=== PATIENT | male | born 1945 | race Caucasian/White ===

== ENCOUNTER → 2016-12-11 | Outpatient (CLI) | payer OTHER ==
[~2016-12-11] MED LIST: ASPEC325 PO; CALCTAB5 PO; CYAN10005 PO; FLUO20CA35 PO; FURO20TA PO; GLC850; GLUCTAB18 PO; INSDGI SQ; METO50TA16 PO; NVLGI SQ; RBTDAC5 PO; SIMV40TA2 PO; VALS320T2 PO
== END | disposition home or self-care (01) ==
LOC: C.MAMM 07:48
PROVIDERS: ATTEND Nurse Practitioner Adult Health
DX: M85.851 Other specified disorders of bone density and structure, right thigh (principal); M85.852 Other specified disorders of bone density and structure, left thigh

== ENCOUNTER → 2017-01-16 | Outpatient (CLI) | payer OTHER ==
[2017-01-16 12:45] LABS: ALKALINE PHOSPHATASE 66 U/L (45-117); ALT/SGPT 34 U/L (12-78); AST/SGOT 20 U/L (15-37); BLOOD UREA NITROGEN 23 mg/dl (7-18); BUN/CREATININE RATIO 18.9 (10-20); CALCIUM 9.4 mg/dl (8.5-10.1); CARBON DIOXIDE 27 mmol/L (21-32); CHLORIDE 100 mmol/L (98-107); GLUCOSE 128 mg/dl (70-99); HDL CHOLESTEROL 42 mg/dl; POTASSIUM 4.4 mmol/L (3.5-5.1); SODIUM 136 mmol/L (136-145)
[2017-01-16 12:49] LABS: ALB/GLOB RATIO 0.8 (0.9-2); CHOLESTEROL 103 mg/dl (0-200); CHOLESTEROL/HDL RATIO 2.5; LDL CHOLESTEROL CALCULATED 27 mg/dl; TRIGLYCERIDES 168 mg/dl (0-150); VERY LOW DENSITY LIPOPROT CALC 34 mg/dl
[2017-01-16 13:14] LABS: ESTIMATED AVERAGE GLUCOSE 206 mg/dl; HA1C FLAG Normal (Normal)
== END | disposition home or self-care (01) ==
LOC: C.LABPVFM 07:47
PROVIDERS: ATTEND Family Medicine
DX: I10 Essential (primary) hypertension (principal); E11.8 Type 2 diabetes mellitus with unspecified complications; E78.5 Hyperlipidemia, unspecified

== ENCOUNTER → 2017-04-19 | Outpatient (CLI) | payer OTHER ==
[2017-04-19 12:56] LABS: HEMATOCRIT 39.5 % (42-52); MEAN CELL VOLUME 93.6 fL (80-100); MEAN CORPUSCULAR HGB CONC 33.2 g/dl (32-36); MEAN PLATELET VOLUME 8.8 fL (7.4-10.4); PLATELET COUNT 350 K/uL (130-400); RED BLOOD COUNT 4.22 M/uL (4.7-6.1)
[2017-04-19 13:07] LABS: URINE APPEARANCE CLEAR (CLEAR); URINE BILIRUBIN NEG (NEG); URINE COLOR YELLOW; URINE NITRITE NEG (NEG); UROBILINOGEN NEG (NEG)
[2017-04-19 13:10] LABS: MANUAL MICROSCOPIC REQUIRED? NO; REVIEW REQ? NO
[2017-04-19 13:17] LABS: ESTIMATED AVERAGE GLUCOSE 192 mg/dl; HA1C FLAG Normal (Normal)
[2017-04-19 13:29] LABS: BLOOD UREA NITROGEN 29 mg/dl (7-18); BUN/CREATININE RATIO 23.8 (10-20); CALCIUM 9.7 mg/dl (8.5-10.1); CARBON DIOXIDE 27 mmol/L (21-32); CHLORIDE 99 mmol/L (98-107); GLUCOSE 182 mg/dl (70-99); PHOSPHORUS 3.6 mg/dl (2.5-4.9); POTASSIUM 4.6 mmol/L (3.5-5.1); SODIUM 136 mmol/L (136-145)
[2017-04-19 14:16] LABS: URINE PROTIEN/CREAT RATIO 0.2 (0-0.2); URINE TOTAL PROTEIN 11.9 mg/dl (0-11.9)
[2017-04-22 15:16] LABS: ALBUMIN 3.9 G/DL (3.8-4.8); GAMMA GLOBULIN 1.2 G/DL (0.8-1.7); TOTAL PROTEIN 7.2 G/DL (6.2-8.3)
== END | disposition home or self-care (01) ==
LOC: C.LABPVFM 08:49
PROVIDERS: ATTEND Internal Medicine Nephrology
DX: E21.3 Hyperparathyroidism, unspecified (principal); R80.9 Proteinuria, unspecified; N18.2 Chronic kidney disease, stage 2 (mild); I12.9 Hypertensive chronic kidney disease with stage 1 through stage 4 chronic kidney disease, or unspecified chronic kidney disease; E11.29 Type 2 diabetes mellitus with other diabetic kidney complication

== ENCOUNTER → 2017-07-18 | Outpatient (CLI) | payer OTHER ==
[2017-07-18 12:53] LABS: ESTIMATED AVERAGE GLUCOSE 214 mg/dl; HA1C FLAG Normal (Normal)
[2017-07-18 13:12] LABS: ALT/SGPT 34 U/L (12-78); AST/SGOT 20 U/L (15-37); BLOOD UREA NITROGEN 33 mg/dl (7-18); BUN/CREATININE RATIO 27.7 (10-20); CALCIUM 9.5 mg/dl (8.5-10.1); CARBON DIOXIDE 29 mmol/L (21-32); CHLORIDE 98 mmol/L (98-107); CHOLESTEROL 110 mg/dl (0-200); GLUCOSE 254 mg/dl (70-99); POTASSIUM 4.6 mmol/L (3.5-5.1); SODIUM 133 mmol/L (136-145); TRIGLYCERIDES 174 mg/dl (0-150); VERY LOW DENSITY LIPOPROT CALC 35 mg/dl
[2017-07-18 13:14] LABS: ALB/GLOB RATIO 1.1 (0.9-2); ALKALINE PHOSPHATASE 88 U/L (45-117); CHOLESTEROL/HDL RATIO 2.8; HDL CHOLESTEROL 40 mg/dl; LDL CHOLESTEROL CALCULATED 35 mg/dl
== END | disposition home or self-care (01) ==
LOC: C.LABPVFM 07:54
PROVIDERS: ATTEND Family Medicine
DX: E78.5 Hyperlipidemia, unspecified (principal); E66.9 Obesity, unspecified; E11.29 Type 2 diabetes mellitus with other diabetic kidney complication; R77.1 Abnormality of globulin

== ENCOUNTER → 2017-07-23 | Outpatient (CLI) | payer OTHER | END | disposition home or self-care (01) | LOC: C.LABPVFM 10:16 | PROVIDERS: ATTEND Family Medicine | DX: R30.0 Dysuria (principal) ==

== ENCOUNTER → 2017-08-21 | Outpatient (CLI) | payer OTHER | END | disposition home or self-care (01) | LOC: C.LABPVFM 10:25 | PROVIDERS: ATTEND Family Medicine | DX: R30.0 Dysuria (principal) ==

== ENCOUNTER → 2017-10-30 | Outpatient (CLI) | payer OTHER ==
[2017-10-30 12:32] LABS: HEMATOCRIT 42.7 % (42-52); HEMOGLOBIN 14.1 g/dL (14.0-18.0); MEAN CELL VOLUME 93.2 fL (80-100); MEAN CORPUSCULAR HEMOGLOBIN 30.8 pg (25-34); MEAN PLATELET VOLUME 9.1 fL (7.4-10.4); PLATELET COUNT 285 K/uL (130-400); RED CELL DISTRIBUTION WIDTH CV 13.1 % (11.5-14.5); RED CELL DISTRIBUTION WIDTH SD 44.5 fL (36.4-46.3); WHITE BLOOD COUNT 7.39 K/uL (4.8-10.8)
[2017-10-30 13:09] LABS: HEMOGLOBIN A1C 8.8 % (4.5-5.6)
[2017-10-30 13:30] LABS: BLOOD UREA NITROGEN 33 mg/dl (7-18); CALCIUM 9.4 mg/dl (8.5-10.1); CARBON DIOXIDE 28 mmol/L (21-32); GLUCOSE 306 mg/dl (70-99); PHOSPHORUS 3.4 mg/dl (2.5-4.9); POTASSIUM 4.4 mmol/L (3.5-5.1); SODIUM 130 mmol/L (136-145)
== END | disposition home or self-care (01) ==
LOC: C.LABPVFM 07:51
PROVIDERS: ATTEND Internal Medicine Nephrology
DX: E11.29 Type 2 diabetes mellitus with other diabetic kidney complication (principal); I12.9 Hypertensive chronic kidney disease with stage 1 through stage 4 chronic kidney disease, or unspecified chronic kidney disease; E21.3 Hyperparathyroidism, unspecified; R80.9 Proteinuria, unspecified; N18.2 Chronic kidney disease, stage 2 (mild)

== ENCOUNTER 2021-09-26 09:46 | Inpatient (IN) ==
--- NOTE | 2021-09-26 11:59 | XRay Report ---
SINGLE VIEW CHEST CLINICAL HISTORY: Dyspnea. FINDINGS: An AP, portable, upright chest radiograph is compared to study dated 06/12/2006. The patient is status post midline sternotomy. The heart is enlarged noting atherosclerotic calcification of the thoracic aorta. There is prominence of the pulmonary vasculature. There are multifocal airspace opac ities, most confluent at the left lung. There is elevation of the left hemidiaphragm with a layering left pleural effusion. No pneumothorax is seen. The skeletal structures are osteopenic. The bony thor ax is grossly intact. IMPRESSION: 1. Cardiomegaly with evidence of congestive failure. 2. There are airspace opacities throughout both lungs, asymmetrically greater/confluent on the left. Differential considerations include pulmonary edema and/or multifocal pneumonia. Clinical correlation will be essential. 3. Layering left pleural effusion. ACT 112: Negative or not required by law. Electronically signed by: Rommel Dial M.D. 09/26/2021 11:58 AM
[2021-09-26 12:06] LABS: Eosinophils # (auto) 0.03 K/uL (0-0.5); Eosinophils % (auto) 0.2 %; Hematocrit (blood only) 39.5 % (42-52); Hemoglobin 12.6 g/dL (14.0-18.0); Immature Granulocytes # (auto) 0.07 K/uL (0.00-0.02); Immature Granulocytes % (auto) 0.5 %; Lymphocytes # (auto) 0.72 K/uL (1.2-3.4); Lymphocytes % (auto) 5.3 %; Mean Corpuscular Hemoglobin 28.6 pg (25-34); Mean Corpuscular Hgb Conc 31.9 g/dL (32-36); Mean Corpuscular Volume 89.8 fL (80-100); Monocytes # (auto) 1.67 K/uL (0.11-0.59); Monocytes % (auto) 12.4 %; Neutrophils # (auto) 10.99 K/uL (1.4-6.5); Neutrophils % (auto) 81.6 %; Platelet Count 524 K/uL (130-400); RDW Coefficient of Variation 14.7 % (11.5-14.5); RDW Standard Deviation 48.7 fL (36.4-46.3); White Blood Count 13.48 K/uL (4.8-10.8)
[2021-09-26 12:21] LABS: INR 1.1 (0.9-1.1); Partial Thromboplastin Ratio 1.1; Partial Thromboplastin Time 29.6 Seconds (21.0-31.0); Prothrombin Time 11.2 Seconds (9.0-12.0)
[2021-09-26] MEDS ORDERED: ALBUT/IPRATROP 3MG/0.5MG NEB 3 ML VIAL NEB STA (12:38)
[2021-09-26] MEDS ORDERED: cefTRIAXone SODIUM 2,000 MG/70 ML BAG IV STA (12:38)
[2021-09-26] MEDS ORDERED: DOXYCYCLINE HYCLATE 100 MG in DEXTROSE 5% 100 ML IV STA (12:38)
[2021-09-26] MEDS ORDERED: methylPREDNISolone 125 MG/2 ML VIAL IV STA (12:38)
[2021-09-26 12:42] LABS: Alanine Aminotransferase 90 U/L (12-78); Albumin Level 2.4 gm/dl (3.4-5.0); Aspartate Aminotransferase 79 U/L (15-37); Blood Urea Nitrogen 29 mg/dl (7-18); Calcium 9.3 mg/dl (8.5-10.1); Carbon Dioxide 26 mmol/L (21-32); Chloride 100 mmol/L (98-107); Creatinine Clr Calc Pharmacy 65.1 ml/min; Est GFR (African American) 71.3 ml/min; Est GFR (Non-African American) 61.5 ml/min; Glucose 130 mg/dl (70-99); Magnesium 2.3 mg/dl (1.8-2.4); Potassium 4.2 mmol/L (3.5-5.1); Sodium 136 mmol/L (136-145)
[2021-09-26 12:47] LABS: Albumin Globulin Ratio 0.5 (0.9-2); Alkaline Phosphatase 85 U/L (45-117); Bilirubin,Total 0.3 mg/dl (0.2-1); Globulin 4.8 gm/dl (2.5-4.0); Total Protein 7.2 gm/dl (6.4-8.2); Troponin I < 0.015 ng/ml (0-0.045)
--- NOTE | 2021-09-26 12:50 | Emergency Department Note ---
Impression & Plan Pneumonia, Hypoxia, SOB (shortness of breath) ED Provider Note INFORMANT: Patient ED PROVIDER(S): Maldonado Hinds MD CHIEF COMPLAINT: Shortness of breath PLAN: Disposition: Admitted Condition: Good Outpatient prescription management: none Referral: None MEDICAL DECISION MAKING: Patient presented because of shortness of breath. He was tested for Covid and this was negative. He did have an elevated white blood cell count. Chest x-ray was concerning for pneumonia. Infiltrate was fairly dense on the left side. BNP and LFTs were elevated. Remainder his labs were unremarkable. Patient was given Rocephin and doxycycline. [facility]ation [facility] with the [facility], Dr. Garza. Patient was evaluated in the ER and admitted for further management. Triage Nursing notes reviewed and agree them. Vital Signs: reviewed and remarkable for hypoxia Differential diagnosis: Reactive airway disease, pneumonia, pneumothorax, COPD, CHF, infections, cardiac ischemia, pulmonary embolism, musculoskeletal, gastrointestinal, as well as other pathologies. Diagnostics interpreted by me: ECG: Twelve-lead ECG reveals atrial fibrillation at [address] a bnormality. When compared to 02/20/2016 T wave inversions have resolved and A. fib is new. Cardiac Monitoring: Cardiac monitoring ordered by me: The patient was placed on continuous cardiac monitoring and observed. It revealed atrial fibrillation at 95 beats per minute without ectopy. Imaging studies: Chest x-ray concerning for cardiomegaly, pulmonary edema, and dense left-sided pulmonary infiltrate. HPI: The patient is a 75year old male who presents to the Emergency Room with complaints of shortness of breath. This started a few days ago and is worsening. The patient also notes the following associated symptoms, mild cough, leg swelling. 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 The patient has taken no medication for relieving factors. Current pain is rated as 0/10. On presentation the patient was found to have a pulse oximetry of 83%. Pt denies LOC, headache, fevers, chills, diaphoresis, visual changes, neck pain, chest pain, nausea, vomiting, abdominal pain, back pain, melena, hematochezia, urinary symptoms, numbness, weakness, lymphadenopathy, rash, or other complaints. ROS: See above HPI for pertinent positives & negatives. A total of 10 systems reviewed and were otherwise negative. PAST MEDICAL HISTORY:See Below , CAD PAST SURGICAL HISTORY:See Below, FAMILY HISTORY:See Below SOCIAL HISTORY:See Below, HOME MEDICATIONS:See Below ALLERGIES:See Below VITALS:See Below PHYSICAL EXAMINATION: GENERAL: Awake, alert, dyspneic-appearing, in no distress HENT: Normocephalic, atraumatic. Oropharynx unremarkable. EYES: Normal conjunctiva. Sclera non-icteric. NECK: Inspection normal. Non-tender. Supple. No nuchal rigidity. FROM. No masses. RESPIRATORY: Scattered wheezes, worse on the right. Scattered rales. S. Mildly increased. CARDIAC: Normal rate. Irregular rhythm. No murmurs. No rubs. Extremities warm and well perfused. Pulses equal. No JVD. GI: Soft, non-distended. No tenderness to palpation. No rebound or guarding. No masses. RECTAL: Deferred. MUSCULOSKELETAL: Atraumatic. Chest examination reveals no tenderness. The back is symmetrical on inspection without obvious abnormality. There is no CVA tenderness to palpation. No joint edema. LOWER EXTREMITIES: Calves are equal size bilaterally and non-tender. 1-2+ edema. Chronic venous discoloration. NEURO: Normal sensorium. No sensory or motor deficits noted. SKIN: No rash or jaundice noted. Maldonado Hinds MD Past Med/Surg History Medical History Anxiety CAD (coronary artery disease) Chronic kidney disease, stage II (mild) Diabetic nephropathy DM (diabetes mellitus), type 2 Hypertension Hyponatremia Prostate CA Treated with surgery and then radiation in 2001 Surgical History History of appendectomy History of cardiac cath 1996 @ [facility] [place] with 1 stent placed History of colonoscopy History of heart artery stent 1996--1 stent History of lumbar discectomy History of prostate biopsy malignant History of radical prostatectomy 2001 History of tooth extraction full upper denture History of wisdom tooth extraction S/P CABG x 3 d/t CAD 2006 @ [facility] [place]--follows with Dr. Small Family History Father Myocardial infarction Mother Myocardial infarction Family history of diabetes mellitus Sister Family history of diabetes mellitus Other No family history of adverse response to anesthesia Prostate cancer Denies family history of Ovarian cancer Breast cancer Colorectal cancer Social History Smoking Status: Former smoker Tobacco Type: Cigarettes Number of Years Since Quit: 21; Second Hand Exposure: No; Hx Alcohol Use: Yes Alcohol type: beer Hx Substance Use: No Preferred Language: Macedonian Communication Ability: Effective Prepared Foods Team Leader Required: No Beliefs That Will Affect Care: None marital status: Current Living Situation: Spouse current occupational status: retired How many Children do You have: 2 Feels Safe at Home: Yes Childhood Exposure to Second-Hand Smoke: No caffeine: Yes Dental Care, Regularly: Yes Physical Activity Frequency: 1-2 Times per Week Seatbelt Use: always Sunscreen Use: No Assistive Devices: Denture - Upper and Glasses Allergies Allergies Allergy/AdvReac Type Severity Reaction Status Date / Time Sulfa (Sulfonamide Allergy Mild Rash Verified 09/26/21 13:05 Antibiotics) sulfamethoxazole Allergy Mild Rash Verified 09/26/21 13:05 [From Bactrim] trimethoprim [From Bactrim] Allergy Mild Rash Verified 09/26/21 13:05 codeine AdvReac Mild Nausea/"wild Verified 09/26/21 13:05 dreams" Home Meds Home Medications Medication Instructions Recorded Confirmed aspirin 325 mg tablet (Filiberto 325 mg PO QAM 05/04/19 09/26/21 Aspirin) cyanocobalamin (vitamin B-12) 1,000 mcg PO QAM 08/09/20 09/26/21 1,000 mcg tablet (Vitamin B-12) amlodipine 10 mg tablet (Norvasc) 10 mg PO QAM 07/28/21 09/26/21 empagliflozin 10 mg tablet 10 mg PO QAM 07/28/21 09/26/21 (Jardiance) famotidine 10 mg tablet (Acid 10 mg PO QAM 07/28/21 09/26/21 Lumber Chain Offbearer (famotidine)) fluoxetine 20 mg capsule (Prozac) 20 mg PO QAM 07/28/21 09/26/21 losartan 100 mg tablet (Cozaar) 100 mg PO QAM 07/28/21 09/26/21 metoprolol tartrate 50 mg tablet 75 mg PO BID 07/28/21 09/26/21 (Lopressor) Previous Rx's Medication Instructions Recorded insulin syringe-needle U-100 0.5 #600 ea 10/10/20 mL 31 gauge x 5/16" (BD Insulin Syringe Ultra-Fine) metformin 850 mg tablet 850 mg PO TID #270 tab 10/19/20 trazodone 100 mg tablet 100 mg PO HS #30 tab 02/13/21 insulin regular human 100 unit/mL 35 unit SQ TID 30 Days #40 ml 03/24/21 injection solution (Novolin R Regular U-100 Insulin) clopidogrel 75 mg tablet (Plavix) 75 mg PO QAM #90 tab 08/31/21 simvastatin 80 mg tablet (Zocor) 80 mg PO HS #90 tab 08/31/21 insulin glargine 100 unit/mL 60 unit SQ BID #11 vial 09/05/21 subcutaneous solution (Lantus U-100 Insulin) Results & Data (ED) Vital Signs Vital Signs - 24 hr 09/26/21 10:00 09/26/21 10:11 09/26/21 10:12 Temperature 36.5 C Temperature Source Temporal Artery Scan Pulse Rate 114 H Pulse Rate [Apical] Pulse Rate from SpO2 Sensor Respiratory Rate 24 Respiratory Rate [Exercises] 32 H Respiratory Rate [Recovery] 25 H Respiratory Effort / Characteristics Non-Labored Respiratory Depth Normal Respiratory Pattern Regular Blood Pressure 107/63 Blood Pressure [Right Arm] Blood Pressure Mean 77 Blood Pressure Mean [Right Arm] Blood Pressure Position Sitting Pulse Oximetry 90 Pulse Oximetry [Exercises] 86 L Pulse Oximetry [Recovery] 90 Oxygen Delivery Method Room Air Room Air Room Air Oxygen Flow Rate Sepsis Recent Fever Within 48 Hours No Sepsis New/Unexplained Change in Mental Status No Sepsis Action Taken by Nursing Physician Notified Oxygen Flow Rate - Titration Pulse Oximetry Post Tiitration 09/26/21 11:27 09/26/21 11:30 09/26/21 11:46 Temperature Temperature Source Pulse Rate 95 H 89 Pulse Rate [Apical] 95 H Pulse Rate from SpO2 Sensor 93 H 97 H Respiratory Rate 19 17 18 Respiratory Rate [Exercises] Respiratory Rate [Recovery] Respiratory Effort / Characteristics Non-Labored Respiratory Depth Normal Respiratory Pattern Blood Pressure Blood Pressure [Right Arm] 137/77 Blood Pressure Mean Blood Pressure Mean [Right Arm] 97 Blood Pressure Position Pulse Oximetry 91 92 93 Pulse Oximetry [Exercises] Pulse Oximetry [Recovery] Oxygen Delivery Method Nasal Cannula Oxygen Flow Rate 0 3 Sepsis Recent Fever Within 48 Hours Sepsis New/Unexplained Change in Mental Status Sepsis Action Taken by Nursing Oxygen Flow Rate - Titration 4 Pulse Oximetry Post Tiitration 92 09/26/21 12:00 09/26/21 12:09 09/26/21 12:30 Temperature Temperature Source Pulse Rate 98 H 103 H Pulse Rate [Apical] Pulse Rate from SpO2 Sensor 101 H Respiratory Rate 21 24 Respiratory Rate [Exercises] Respiratory Rate [Recovery] Respiratory Effort / Characteristics Respiratory Depth Respiratory Pattern Blood Pressure Blood Pressure [Right Arm] Blood Pressure Mean Blood Pressure Mean [Right Arm] Blood Pressure Position Pulse Oximetry 93 Pulse Oximetry [Exercises] Pulse Oximetry [Recovery] Oxygen Delivery Method Nasal Cannula Oxygen Flow Rate 3 Sepsis Recent Fever Within 48 Hours Sepsis New/Unexplained Change in Mental Status Sepsis Action Taken by Nursing Oxygen Flow Rate - Titration Pulse Oximetry Post Tiitration 09/26/21 12:58 09/26/21 13:00 09/26/21 13:30 Temperature Temperature Source Pulse Rate 98 H Pulse Rate [Apical] 98 H 100 H Pulse Rate from SpO2 Sensor 98 H 91 H Respiratory Rate 22 29 H Respiratory Rate [Exercises] Respiratory Rate [Recovery] Respiratory Effort / Characteristics Spontaneous Spontaneous Accessory Muscle Use Respiratory Depth Normal Respiratory Pattern Blood Pressure Blood Pressure [Right Arm] Blood Pressure Mean Blood Pressure Mean [Right Arm] Blood Pressure Position Pulse Oximetry 93 92 92 Pulse Oximetry [Exercises] Pulse Oximetry [Recovery] Oxygen Delivery Method Nasal Cannula Nasal Cannula Oxygen Flow Rate 3 3 Sepsis Recent Fever Within 48 Hours Sepsis New/Unexplained Change in Mental Status Sepsis Action Taken by Nursing Oxygen Flow Rate - Titration Pulse Oximetry Post Tiitration 09/26/21 14:00 Temperature Temperature Source Pulse Rate 98 H Pulse Rate [Apical] 107 H Pulse Rate from SpO2 Sensor 108 H Respiratory Rate 28 H Respiratory Rate [Exercises] Respiratory Rate [Recovery] Respiratory Effort / Characteristics Spontaneous Accessory Muscle Use Labored Respiratory Depth Normal Respiratory Pattern Regular Blood Pressure 110/71 Blood Pressure [Right Arm] 110/71 Blood Pressure Mean 84 Blood Pressure Mean [Right Arm] 84 Blood Pressure Position Pulse Oximetry 94 Pulse Oximetry [Exercises] Pulse Oximetry [Recovery] Oxygen Delivery Method Nasal Cannula Oxygen Flow Rate 3 Sepsis Recent Fever Within 48 Hours Sepsis New/Unexplained Change in Mental Status Sepsis Action Taken by Nursing Oxygen Flow Rate - Titration Pulse Oximetry Post Tiitration Laboratory Data Result diagrams: 09/26/21 11:55 09/26/21 11:55 Lab Results 09/26/21 09/26/21 09/26/21 Range/Units 10:05 10:05 11:55 WBC 13.48 H (4.8-10.8) K/uL RBC 4.40 L (4.7-6.1) M/uL Hgb 12.6 L (14.0-18.0) g/dL Hct 39.5 L (42-52) % MCV 89.8 (80-100) fL MCH 28.6 (25-34) pg MCHC 31.9 L (32-36) g/dL RDW Std Deviation 48.7 H (36.4-46.3) fL RDW Coeff of Shlomo 14.7 H (11.5-14.5) % Plt Count 524 H (130-400) K/uL MPV 8.0 (7.4-10.4) fL Immature Gran % (Auto) 0.5 % Neut % (Auto) 81.6 % Lymph % (Auto) 5.3 % [place] % (Auto) 12.4 % Eos % (Auto) 0.2 % Baso % (Auto) 0.0 % Neut # (Auto) 10.99 H (1.4-6.5) K/uL Lymph # (Auto) 0.72 L (1.2-3.4) K/uL [place] # (Auto) 1.67 H (0.11-0.59) K/uL Eos # (Auto) 0.03 (0-0.5) K/uL Baso # (Auto) 0.00 (0-0.2) K/uL Immature Gran # (Auto) 0.07 H (0.00-0.02) K/uL PT (9.0-12.0) Seconds INR (0.9-1.1) APTT (21.0-31.0) Seconds PTT Ratio Sodium (136-145) mmol/L Potassium (3.5-5.1) mmol/L Chloride (98-107) mmol/L Carbon Dioxide (21-32) mmol/L Anion Gap (3-11) BUN (7-18) mg/dl Creatinine (0.6-1.4) mg/dl Est Cr Clr Drug Dosing ml/min Est GFR ( Amer) ml/min Est GFR (Non-Af Amer) ml/min BUN/Creatinine Ratio (10-20) Glucose (70-99) mg/dl Lactate (0.4-2.0) mmol/L Calcium (8.5-10.1) mg/dl Magnesium (1.8-2.4) mg/dl Total Bilirubin (0.2-1) mg/dl AST (15-37) U/L ALT (12-78) U/L Alkaline Phosphatase (45-117) U/L Troponin I (0-0.045) ng/ml NT-Pro-B Natriuret Pep (0-900) pg/ml Total Protein (6.4-8.2) gm/dl Albumin (3.4-5.0) gm/dl Globulin (2.5-4.0) gm/dl Albumin/Globulin Ratio (0.9-2) Procalcitonin (0-0.5) ng/ml SARS-CoV-2 (PCR) NEGATIVE (Negative) Influ A Molecular Assay Negative (Negative) Influ B Molecular Assay Negative (Negative) 09/26/21 09/26/21 09/26/21 Range/Units 11:55 11:55 13:00 WBC (4.8-10.8) K/uL RBC (4.7-6.1) M/uL Hgb (14.0-18.0) g/dL Hct (42-52) % MCV (80-100) fL MCH (25-34) pg MCHC (32-36) g/dL RDW Std Deviation (36.4-46.3) fL RDW Coeff of Shlomo (11.5-14.5) % Plt Count (130-400) K/uL MPV (7.4-10.4) fL Immature Gran % (Auto) % Neut % (Auto) % Lymph % (Auto) % [place] % (Auto) % Eos % (Auto) % Baso % (Auto) % Neut # (Auto) (1.4-6.5) K/uL Lymph # (Auto) (1.2-3.4) K/uL [place] # (Auto) (0.11-0.59) K/uL Eos # (Auto) (0-0.5) K/uL Baso # (Auto) (0-0.2) K/uL Immature Gran # (Auto) (0.00-0.02) K/uL PT 11.2 (9.0-12.0) Seconds INR 1.1 (0.9-1.1) APTT 29.6 (21.0-31.0) Seconds PTT Ratio 1.1 Sodium 136 (136-145) mmol/L Potassium 4.2 (3.5-5.1) mmol/L Chloride 100 (98-107) mmol/L Carbon Dioxide 26 (21-32) mmol/L Anion Gap 10.0 (3-11) BUN 29 H (7-18) mg/dl Creatinine 1.17 (0.6-1.4) mg/dl Est Cr Clr Drug Dosing 65.1 ml/min Est GFR ( Amer) 71.3 ml/min Est GFR (Non-Af Amer) 61.5 ml/min BUN/Creatinine Ratio 25.0 H (10-20) Glucose 130 H (70-99) mg/dl Lactate (0.4-2.0) mmol/L Calcium 9.3 (8.5-10.1) mg/dl Magnesium 2.3 (1.8-2.4) mg/dl Total Bilirubin 0.3 (0.2-1) mg/dl AST 79 H (15-37) U/L ALT 90 H (12-78) U/L Alkaline Phosphatase 85 (45-117) U/L Troponin I < 0.015 (0-0.045) ng/ml NT-Pro-B Natriuret Pep 1796 H (0-900) pg/ml Total Protein 7.2 (6.4-8.2) gm/dl Albumin 2.4 L (3.4-5.0) gm/dl Globulin 4.8 H (2.5-4.0) gm/dl Albumin/Globulin Ratio 0.5 L (0.9-2) Procalcitonin (0-0.5) ng/ml SARS-CoV-2 (PCR) (Negative) Influ A Molecular Assay (Negative) Influ B Molecular Assay (Negative) 09/26/21 09/26/21 Range/Units 13:00 13:00 WBC (4.8-10.8) K/uL RBC (4.7-6.1) M/uL Hgb (14.0-18.0) g/dL Hct (42-52) % MCV (80-100) fL MCH (25-34) pg MCHC (32-36) g/dL RDW Std Deviation (36.4-46.3) fL RDW Coeff of Shlomo (11.5-14.5) % Plt Count (130-400) K/uL MPV (7.4-10.4) fL Immature Gran % (Auto) % Neut % (Auto) % Lymph % (Auto) % [place] % (Auto) % Eos % (Auto) % Baso % (Auto) % Neut # (Auto) (1.4-6.5) K/uL Lymph # (Auto) (1.2-3.4) K/uL [place] # (Auto) (0.11-0.59) K/uL Eos # (Auto) (0-0.5) K/uL Baso # (Auto) (0-0.2) K/uL Immature Gran # (Auto) (0.00-0.02) K/uL PT (9.0-12.0) Seconds INR (0.9-1.1) APTT (21.0-31.0) Seconds PTT Ratio Sodium (136-145) mmol/L Potassium (3.5-5.1) mmol/L Chloride (98-107) mmol/L Carbon Dioxide (21-32) mmol/L Anion Gap (3-11) BUN (7-18) mg/dl Creatinine (0.6-1.4) mg/dl Est Cr Clr Drug Dosing ml/min Est GFR ( Amer) ml/min Est GFR (Non-Af Amer) ml/min BUN/Creatinine Ratio (10-20) Glucose (70-99) mg/dl Lactate 1.6 (0.4-2.0) mmol/L Calcium (8.5-10.1) mg/dl Magnesium (1.8-2.4) mg/dl Total Bilirubin (0.2-1) mg/dl AST (15-37) U/L ALT (12-78) U/L Alkaline Phosphatase (45-117) U/L Troponin I (0-0.045) ng/ml NT-Pro-B Natriuret Pep (0-900) pg/ml Total Protein (6.4-8.2) gm/dl Albumin (3.4-5.0) gm/dl Globulin (2.5-4.0) gm/dl Albumin/Globulin Ratio (0.9-2) Procalcitonin 0.08 (0-0.5) ng/ml SARS-CoV-2 (PCR) (Negative) Influ A Molecular Assay (Negative) Influ B Molecular Assay (Negative) Administered Medications Albuterol (Albut/Ipratrop 3mg/0.5mg Neb 3 Ml Vial) 3 ml NEB QIDR CHRISTOFER Stop: 10/26/21 14:59 Last Admin: 09/26/21 14:56 Dose: 3 ml Documented by: [id number] Discontinued Medications Albuterol (Albut/Ipratrop 3mg/0.5mg Neb 3 Ml Vial) 3 ml NEB NOW STA Stop: 09/26/21 12:39 Last Admin: 09/26/21 12:58 Dose: 3 ml Documented by: [id number] Furosemide (Furosemide Inj 20 Mg/2 Ml Vial) 20 mg IV ONE ONE Stop: 09/26/21 14:11 Last Admin: 09/26/21 15:08 Dose: Not Given Documented by: [id number] Furosemide (Furosemide 40 Mg/4 Ml Vial) Confirm Administered Dose 40 mg IV .STK- MED ONE Stop: 09/26/21 15:08 Last Admin: 09/26/21 15:08 Dose: 20 mg Documented by: [id number] Ceftriaxone Sodium (Rocephin) 2,000 mg in 70 mls @ 140 mls/hr IV NOW STA Stop: 09/26/21 13:07 Last Infusion: 09/26/21 13:56 Dose: 0 mls/hr Documented by: [id number] Admin: 09/26/21 13:20 Dose: 140 mls/hr Documented by: [id number] Doxycycline Hyclate 100 mg/ (Dextrose) 110 mls @ 50 mls/hr IV NOW STA Stop: 09/26/21 14:49 Last Infusion: 09/26/21 16:09 Dose: 0 mls/hr Documented by: [id number] Admin: 09/26/21 13:56 Dose: 50 mls/hr Documented by: [id number] Azithromycin 500 mg/ Dextrose 255 mls @ 125 mls/hr IV ONE ONE Stop: 09/26/21 16:12 Last Admin: 09/26/21 16:09 Dose: 125 mls/hr Documented by: [id number] Ioversol (Optiray 320 125ml) 120 ml IV ONCE ONE Stop: 09/26/21 15:35 Last Admin: 09/26/21 15:35 Dose: 120 ml Documented by: [id number] Lidocaine HCl (Lidocaine 1% Local 20 Ml Vial) Confirm Administered Dose 20 ml .ROUTE .STK-MED ONE Stop: 09/26/21 16:31 Last Admin: 09/26/21 16:43 Dose: 20 ml Documented by: [id number] Methylprednisolone (Methylprednisolone 125 Mg/2 Ml Vial) 125 mg IV NOW STA Stop: 09/26/21 12:39 Last Admin: 09/26/21 13:21 Dose: 125 mg Documented by: [id number] Imaging Data Radiologist's Impression: Chest X-Ray 09/26/21 11:33 SINGLE VIEW CHEST CLINICAL HISTORY: Dyspnea. FINDINGS: An AP, portable, upright chest radiograph is compared to study dated 06/12/2006. The patient is status post midline sternotomy. The heart is enlarged noting atherosclerotic calcification of the thoracic aorta. There is prominence of the pulmonary vasculature. There are multifocal airspace opacities, most confluent at the left lung. There is elevation of the left hemidiaphragm with a layering left pleural effusion. No pneumothorax is seen. The skeletal structures are osteopenic. The bony thorax is grossly intact. IMPRESSION: 1. Cardiomegaly with evidence of congestive failure. 2. There are airspace opacities throughout both lungs, asymmetrically greater/confluent on the left. Differential considerations include pulmonary edema and/or multifocal pneumonia. Clinical correlation will be essential. 3. Layering left pleural effusion. ACT 112: Negative or not required by law. Electronically signed by: Rommel Dial M.D. 09/26/2021 11:58 AM Chest CTA 09/26/21 13:10 CT ANGIOGRAM OF THE CHEST CLINICAL HISTORY: Pneumonia. Hypoxia. Pleural effusion. COMPARISON STUDY: Chest x-ray dated 09/26/2021. TECHNIQUE: Following the IV administration of 120 cc of Optiray 320, CT angiogram of the chest was performed from the upper abdomen to the thoracic inlet utilizing the pulmonary embolus protocol. Images are reviewed in the axial, sagittal, and coronal planes. 3-D MIPS images are created and assessed. IV contrast was administered without complication. A dose lowering technique was utilized adhering to the principles of ALARA. The examination is degraded by motion artifact. CT DOSE: 916.47 mGy.cm FINDINGS: Thyroid: Imaged portions of the thyroid gland are normal in size and attenuation. Thoracic aorta: There is atherosclerotic calcification of the thoracic aorta, which is normal in caliber and demonstrates standard 3-vessel arch anatomy. No dissection is seen. Pulmonary vasculature: The pulmonary trunk is normal in caliber. There are no filling defects identified in main, lobar, or proximal segmental pulmonary branches to suggest pulmonary embolus. Evaluation of the peripheral branches is significantly compromised by motion artifact. Heart: The patient is status post midline sternotomy. The heart is enlarged and without pericardial effusion. The coronary arteries and mitral annulus are densely calcified. Lungs and pleural spaces: Evaluation of the lung parenchyma is compromised by motion artifact. Mild emphysematous change is suspected. There is a moderate left pleural effusion with atelectasis of the left lower lung. Suspect a large left perihilar mass lesion with associated narrowing of the left-sided bronchi and branches of the left pulmonary artery. Airspace consolidation is seen throughout the left upper lobe. There is intralobular septal thickening and nodularity throughout the left upper lobe which may represent lymphangitic spread of tumor. There is a 2.8 x 1.5 cm irregular pulmonary nodule at the left apex seen on image #227. There are least 5 pulmonary nodules in the right upper lobe measuring up to 0.9 cm. These are seen on images #169, #192, #198, and #211. The trachea is clear. Mediastinum: There is bulky mediastinal lymphadenopathy. A subcarinal node measures 5.1 x 3.0 cm. Prevascular nodes measure up to 3.8 x 2.5 cm. A high right peritracheal node on image #194 measures 2.4 x 1.8 cm. Catarina: The left hilum is largely obscured by a suspected mass lesion. Prominent right hilar nodes measure up to 11 mm in short axis. Axillae: There is no axillary lymphadenopathy. Upper abdomen: Partially visualized upper abdominal viscera is within normal limits. Skeletal structures: The skeletal structures are osteopenic. No lytic or blastic bony lesions are seen. IMPRESSION: 1. Motion compromised examination. 2. There is no evidence of central pulmonary embolus in the main, lobar, or proximal segmental pulmonary arteries. Evaluation of the segmental and subsegmental branches is severely degraded by motion artifact. 3. Suspect a large left perihilar mass lesions associated narrowing of the left- sided bronchi and branches of the left pulmonary artery. 4. Airspace consolidation is seen throughout the left upper lobe. Correlate clinically for evidence of pneumonia. 5. There is a moderate left pleural effusion with atelectasis of the left lower lung. This may be malignant. 6. There is a 2.8 cm lobulated pulmonary nodule at the left apex. Additionally, findings suggests lymphangitic spread of tumor in the left upper lobe. 7. There is bulky mediastinal lymphadenopathy. 8. There are least 5 pulmonary nodules scattered throughout the right lung which are concerning for metastatic disease. 9. Cardiomegaly and emphysema. 10. Additional findings as above. ACT 112: Negative or not required by law. Electronically signed by: Rommel Dial M.D. 09/26/2021 3:55 PM Discharge Plan Visit Data Chief Complaint: Shortness of Breath/Dyspnea Stated Complaint: SHORTNESS OF BREATH ED Provider: Maldonado Hinds Discharge Problem: Pneumonia, Hypoxia, SOB (shortness of breath) Discharge Instructions Interventions: ED Discharge Assessment Last Done: 09/26/21 16:46
[2021-09-26 12:52] LABS: Influenza A virus by PCR Negative (Negative); Influenza B virus by PCR Negative (Negative)
--- NOTE | 2021-09-26 13:29 | Electrocardiogram Report ---
Test Reason : Blood Pressure : / mmHG Vent. Rate : 096 BPM Atrial Rate : 063 BPM P-R Int : 000 ms QRS Dur : 080 ms QT Int : 364 ms P-R-T Axes : 000 010 198 degrees QTc Int : 459 ms Atrial fibrillation Nonspecific T wave abnormality Abnormal ECG When compared with ECG of 20-FEB-2016 15:29, Atrial fibrillation has replaced Sinus rhythm ST no longer depressed in Anterolateral leads T wave inversion no longer evident in Anterior leads Confirmed by Sheldon Reddy ([id number]) on 09/26/2021 1:29:27 PM Referred By: Confirmed By:Pierce Reddy
[2021-09-26] MEDS ORDERED: AZITHROMYCIN 500 MG in DEXTROSE 5% 250 ML IV ONE (14:10)
[2021-09-26] MEDS ORDERED: FUROSEMIDE INJ 20 MG/2 ML VIAL IV ONE (14:10)
--- NOTE | 2021-09-26 14:12 | History & Physical Report ---
Date of Service September 26, 2021 Assessment & Plan (1) Pneumonia: Plan: Patient presents with shortness of breath, hypoxia, extensive pneumonia and suspected masses in the left lung especially, after onset of some sort of viral syndrome to include diarrhea, sore throat, rhinorrhea, poor appetite, and hives for the last 4 days. Bio fire negative, Covid-19 and influenza A/B all negative CT angiogram the chest negative for PE but with extensive masslike lesions, mod erate pleural effusion with compressive atelectasis, and bulky mediastinal lymphadenopathy all suspicious for lung cancer with metastases This is most likely a postobstructive community-acquired pneumonia Leukocytosis of 13, LFTs mildly elevated which also could be consistent with viral illness Procalcitonin is negative, but will treat with antibiotics anyway -Admit to PCU -Continue IV antibiotics with IV ceftriaxone and azithromycin -Supplemental O2 to keep pulse ox greater than 90% -Scheduled DuoNebs ordered given ongoing significant wheezing and hypoxia in the setting of most likely underlying COPD with extensive smoking history -Consult pulmonology appreciated-plan for thoracentesis after admission for diagnostic purposes-small volume removed due to being on Plavix -Follow-up pleural fluid studies and cytology to look for malignancy -Follow chest x-ray after thoracentesis -Follow blood cultures (2) Pulmonary nodules/lesions, multiple: Plan: As above Malignancy highly suspected Appreciate pulmonology consultation (3) Pleural effusion: Plan: As above, thoracentesis to be performed after admission Most likely malignant effusion but could also be parapneumonic, perhaps somewhat related to CHF given new onset mildly rapid atrial fibrillation -Follow-up pleural fluid studies after thoracentesis -Check echocardiogram -Give 1 dose Lasix 20 mg IV x1 (4) Hypoxia: Plan: Secondary to extensive pneumonia, likely lung cancer, pleural effusion Also with wheezing and possibly COPD exacerbation Received 1 dose of IV Solu-Medrol in the ERhold off on any further at this time in case of viral infection Continue scheduled duo nebs Follow with pulmonology Continue supplemental O2 to keep pulse ox greater than 90% (5) Atrial fibrillation: Plan: New onset atrial fibrillation. He reports he had some lone atrial fibrillation in the immediate postoperative time after his CABG but none since then Rates are mildly elevated in the low 100s but he is also acutely ill with pneumonia as above Increase home metoprolol to 100 mg p.o. twice daily for improved rate control Will need to start on anticoagulation-discussed Eliquis with patient he is agreeable-we will hold off until after thoracentesis and to make sure no other procedures needed with pulmonology If starts on Eliquis, would discontinue likely the aspirin and continue only Plavix and Eliquis in the setting of severe PAD and history of CABG Consult cardiology-appreciated -Check echocardiogram (6) Hypertension: Plan: Blood pressures are controlled Continue home amlodipine, losartan, and increase metoprolol to 100 mg p.o. twice daily for better rate control with A. fib (7) Stage 2 chronic kidney disease: Plan: CKD stage II, follows with nephrology, with proteinuria Secondary to hypertension and diabetes Continue losartan -Avoid nephrotoxins -renally dose meds when appropriate -follow BMP (8) PAD (peripheral artery disease): Plan: With history of right common iliac artery stent and extensive disease in the right lower extremity with claudication which is now improved Continue dual antiplatelet therapy for now, but would discontinue aspirin once starts Eliquis for atrial fibrillation Continue simvastatin Follows with vascular surgery at [place] (9) CAD (coronary artery disease): Plan: Status post CABG No acute issues Continue dual antiplatelet therapy, metoprolol, statin Follows with cardiology at [facility] (10) Acid reflux disease: Plan: Patient recently started on Pepcid for heartburn last week which is now resolved Continue Pepcid (11) Hypercholesterolemia: Plan: Continue statin (12) Uncontrolled type 2 diabetes mellitus with neurologic complication, with long-term current use of insulin: Plan: With hyperglycemia likely secondary to steroids Continue home Lantus 60 units twice daily Add NovoLog supplemental insulin and titrate up as needed for hyperglycemia Check hemoglobin A1c in the morning Hold home Jardiance (13) Depression: Plan: Continue home trazodone (14) Transaminitis: Plan: Mild elevation of AST and ALT No abdominal pain and bilirubin is normal Could be secondary to hepatic congestion perhaps from heart failure? Or viral illness? Follow LFTs in the morning Plan: Prophylaxis-MANE hose for now, but plan to start Eliquis in near future for atrial fibrillation Disposition-admit to PCU Full code History of Present Illness Chief Complaint: Shortness of breath Primary Care Provider: Amish Kamara, DO This patient is a very pleasant 75-year-old male with a history of prostate cancer status post prostatectomy, HTN, CKD stage II, PAD, CAD s/p CABG, DM 2, GERD, hyperlipidemia, and obesity who presents to the ER with worsening shortness of breath and cough. He reports that about 4 days ago he developed itchy hives all over his arms and legs that would come and go but would improve with taking Benadryl. He then developed a runny nose, sore throat, decreased appetite, and diarrhea. He also had a cough and worsening shortness of breath and wheezing He was coughing up some green sputum but no blood. The diarrhea is about 3 times a day and was nonbloody. 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 He denies any chest pains or heart palpitations. He also reports worsening ankle and lower extremity edema over the last few days. In the ER, he was found to be hypoxic with a pulse ox of 83% and was placed on oxygen. His chest x-ray showed extensive pneumonia and pleural effusion on the left. His Covid and flu A/B test were both negative. He was found to be in new onset atrial fibrillation with rates in the low 100s. A [employer] viral respiratory panel was then ordered by myself and was negative. In the ER, he received ceftriaxone, doxycycline, IV Solu-Medrol, and duo nebs with some relief. After I saw him, I obtained a CT angiogram of the chest which was negative for PE, but did unfortunately show a large left perihilar mass with associated narrowing of the left-sided bronchi and branches of the left pulmonary artery, airspace consolidation throughout left upper lobe, moderate left pleural effusion with atelectasis of left lower lobe, 2.8 cm lobulated pulmonary nodule at the left apex and findings suggestive of lymphangitic spread of tumor into the left upper lobe, bulky mediastinal lymphadenopathy, and at least 5 pulmonary nodules scattered throughout the right lung concerning for metastatic disease. I discussed his care with the perfume compounder after admission who will perform thoracentesis for diagnostic purposes. Of note, the patient is on aspirin and Plavix. I also discussed his care briefly with the manager information who will consult tomorrow-we will hold off on anticoagulation until after lung procedure He will be admitted for community-acquired pneumonia with possible new onset lung cancer, new onset atrial fibrillation, volume overload, and acute respiratory failure with hypoxia Allergies Allergy/AdvReac Type Severity Reaction Status Date / Time Sulfa (Sulfonamide Allergy Mild Rash Verified 09/26/21 13:05 Antibiotics) sulfamethoxazole Allergy Mild Rash Verified 09/26/21 13:05 [From Bactrim] trimethoprim [From Bactrim] Allergy Mild Rash Verified 09/26/21 13:05 codeine AdvReac Mild Nausea/"wild Verified 09/26/21 13:05 dreams" Home Medications Medication Instructions Recorded Confirmed Type aspirin 325 mg tablet (Filiberto 325 mg PO QAM 05/04/19 09/26/21 History Aspirin) cyanocobalamin (vitamin B-12) 1,000 mcg PO QAM 08/09/20 09/26/21 History 1,000 mcg tablet (Vitamin B-12) insulin syringe-needle U-100 0.5 #600 ea 10/10/20 08/31/21 Rx mL 31 gauge x 5/16" (BD Insulin Syringe Ultra-Fine) metformin 850 mg tablet 850 mg PO TID #270 tab 10/19/20 09/26/21 Rx trazodone 100 mg tablet 100 mg PO HS #30 tab 02/13/21 09/26/21 Rx insulin regular human 100 unit/mL 35 unit SQ TID 30 Days #40 ml 03/24/21 09/26/21 Rx injection solution (Novolin R Regular U-100 Insulin) amlodipine 10 mg tablet (Norvasc) 10 mg PO QAM 07/28/21 09/26/21 History empagliflozin 10 mg tablet 10 mg PO QAM 07/28/21 09/26/21 History (Jardiance) famotidine 10 mg tablet (Acid 10 mg PO QAM 07/28/21 09/26/21 History Tutoring Manager (famotidine)) fluoxetine 20 mg capsule (Prozac) 20 mg PO QAM 07/28/21 09/26/21 History losartan 100 mg tablet (Cozaar) 100 mg PO QAM 07/28/21 09/26/21 History metoprolol tartrate 50 mg tablet 75 mg PO BID 07/28/21 09/26/21 History (Lopressor) clopidogrel 75 mg tablet (Plavix) 75 mg PO QAM #90 tab 08/31/21 09/26/21 Rx simvastatin 80 mg tablet (Zocor) 80 mg PO HS #90 tab 08/31/21 09/26/21 Rx insulin glargine 100 unit/mL 60 unit SQ BID #11 vial 09/05/21 09/26/21 Rx subcutaneous solution (Lantus U-100 Insulin) Past Med/Surg History Medical History (Updated 09/26/21 @ 23:56 by Destiny Garza MD) Acid reflux disease Anxiety Atrial fibrillation CAD (coronary artery disease) Chronic kidney disease, stage II (mild) Depression Diabetic nephropathy Diabetic peripheral neuropathy Diabetic retinopathy DM (diabetes mellitus), type 2 Hypercholesterolemia Hypertension Hyponatremia PAD (peripheral artery disease) Prostate CA Treated with surgery and then radiation in 2001 Stage 2 chronic kidney disease Type 2 diabetes mellitus with stage 2 chronic kidney disease and hypertension Uncontrolled type 2 diabetes mellitus with neurologic complication, with long- term current use of insulin Surgical History (Updated 09/26/21 @ 23:37 by Destiny Garza MD) History of angiography With right iliac stent placement History of appendectomy History of cardiac [place] 1996 [place] [facility] [place] placed History of colonoscopy History of heart artery stent 1996--1 stent History of lumbar discectomy History of prostate biopsy malignant History of radical prostatectomy 2001 History of tooth extraction full upper denture History of wisdom tooth extraction S/P CABG x 3 d/t CAD 2006 @ [facility] [place]follows with Dr. Small Family History Father Myocardial infarction Mother Myocardial infarction Family history of diabetes mellitus Sister Family history of diabetes mellitus Other No family history of adverse response to anesthesia Prostate cancer Denies family history of Ovarian cancer Breast cancer Colorectal cancer Social History (Updated 09/26/21 @ 23:38 by Destiny Garza MD) Smoking Status: Former smoker Tobacco Type: Cigarettes Number of Years Since Quit: 21; Second Hand Exposure: No; Do You Dip or Chew Tobacco: No; Tobacco Cessation Education Requested by Patient: No Hx Alcohol Use: Yes Alcohol type: beer Alcohol Intake Frequency: 2-4 x/Month Hx Substance Use: No Preferred Language: Moldovan Communication Ability: Effective Audit Spec Required: No Beliefs That Will Affect Care: None marital status: Current Living Situation: Spouse current occupational status: retired How many Children do You have: 2 Other Information That Helps Us Care for You: No Feels Safe at Home: Yes Childhood Exposure to Second-Hand Smoke: No caffeine: Yes Dental Care, Regularly: Yes Physical Activity Frequency: 1-2 Times per Week Seatbelt Use: always Sunscreen Use: No Assistive Devices: Cane, Denture - Upper and Glasses Review of Systems Review of Systems: All systems reviewed & are unremarkable except as noted in HPI & below Physical Exam Constitutional: WD/WN, vitals as above + obese Eyes: PERRL, conjunctivae normal, anicteric sclerae ENMT: external ear and nose normal, oropharynx normal Neck: trachea midline, no thyromegaly Respiratory: + tachypneic (With movement in the bed); no cough Auscultation: + diminished lung sounds (At left base), + rhonchi (In left upper and middle lung goncalves) and + wheezes (Diffusely); no crackles Cardiovascular: Rate/Rhythm: + tachycardic and + irregularly irregular Heart Sounds: no murmur Vessels: dorsalis pedis pulses present (1+ bilaterally) Extremities: + edema (1+ edema of the feet and ankles bilaterally) Chest (Breasts): Chest: normal inspection of chest Gastrointestinal (Abdomen): normal bowel sounds, soft, nontender, no hepatosplenomegaly Musculoskeletal: Extremities: extremities normal to inspection; no cyanosis and no clubbing Skin: no rashes, warm and dry Neurologic: moves all extremities and awake; no focal motor deficits Psychiatric: A+Ox3, euthymic affect Lymphatic: no lymphedema Results & Data Results & Data ([facility]) Vital Signs (Past 12 Hours) Vital Signs Temp Pulse Pulse Resp Resp Resp BP 09/26/21 14:00 107 H 24 09/26/21 13:00 100 H 22 09/26/21 12:58 98 H 22 09/26/21 11:46 95 H 18 09/26/21 11:27 09/26/21 10:12 25 H 09/26/21 10:11 32 H 09/26/21 10:00 36.5 C 114 H 24 107/63 BP Pulse Ox Pulse Ox Pulse Ox 09/26/21 14:00 110/71 94 09/26/21 13:00 93 09/26/21 12:58 93 09/26/21 11:46 137/77 93 09/26/21 11:27 83 L 09/26/21 10:12 90 09/26/21 10:11 86 L 09/26/21 10:00 90 Laboratory Results Laboratory results reviewed Diagnostic Findings Chest x-ray and chest CT images personally reviewed by me and agree with the following reports: Chest X-Ray 09/26/21 11:33 SINGLE VIEW CHEST CLINICAL HISTORY: Dyspnea. FINDINGS: An AP, portable, upright chest radiograph is compared to study dated 06/12/2006. The patient is status post midline sternotomy. The heart is enlarged noting atherosclerotic calcification of the thoracic aorta. There is prominence of the pulmonary vasculature. There are multifocal airspace opacities, most confluent at the left lung. There is elevation of the left hemidiaphragm with a layering left pleural effusion. No pneumothorax is seen. The skeletal structures are osteopenic. The bony thorax is grossly intact. IMPRESSION: 1. Cardiomegaly with evidence of congestive failure. 2. There are airspace opacities throughout both lungs, asymmetrically greater/confluent on the left. Differential considerations include pulmonary edema and/or multifocal pneumonia. Clinical correlation will be essential. 3. Layering left pleural effusion. ACT 112: Negative or not required by law. Electronically signed by: Rommel Dail M.D. 09/26/2021 11:58 AM Chest CTA 09/26/21 13:10 CT ANGIOGRAM OF THE CHEST CLINICAL HISTORY: Pneumonia. Hypoxia. Pleural effusion. COMPARISON STUDY: Chest x-ray dated 09/26/2021. TECHNIQUE: Following the IV administration of 120 cc of Optiray 320, CT angiogram of the chest was performed from the upper abdomen to the thoracic inlet utilizing the pulmonary embolus protocol. Images are reviewed in the axial, sagittal, and coronal planes. 3-D MIPS images are created and assessed. IV contrast was administered without complication. A dose lowering technique was utilized adhering to the principles of ALARA. The examination is degraded by motion artifact. CT DOSE: 916.47 mGy.cm FINDINGS: Thyroid: Imaged portions of the thyroid gland are normal in size and attenuation. Thoracic aorta: There is atherosclerotic calcification of the thoracic aorta, which is normal in caliber and demonstrates standard 3-vessel arch anatomy. No dissection is seen. Pulmonary vasculature: The pulmonary trunk is normal in caliber. There are no filling defects identified in main, lobar, or proximal segmental pulmonary branches to suggest pulmonary embolus. Evaluation of the peripheral branches is significantly compromised by motion artifact. Heart: The patient is status post midline sternotomy. The heart is enlarged and without pericardial effusion. The coronary arteries and mitral annulus are densely calcified. Lungs and pleural spaces: Evaluation of the lung parenchyma is compromised by motion artifact. Mild emphysematous change is suspected. There is a moderate left pleural effusion with atelectasis of the left lower lung. Suspect a large left perihilar mass lesion with associated narrowing of the left-sided bronchi and branches of the left pulmonary artery. Airspace consolidation is seen throughout the left upper lobe. There is intralobular septal thickening and nodularity throughout the left upper lobe which may represent lymphangitic spread of tumor. There is a 2.8 x 1.5 cm irregular pulmonary nodule at the left apex seen on image #227. There are least 5 pulmonary nodules in the right upper lobe measuring up to 0.9 cm. These are seen on images #169, #192, #198, and # 211. The trachea is clear. Mediastinum: There is bulky mediastinal lymphadenopathy. A subcarinal node measures 5.1 x 3.0 cm. Prevascular nodes measure up to 3.8 x 2.5 cm. A high right peritracheal node on image #194 measures 2.4 x 1.8 cm. Catarina: The left hilum is largely obscured by a suspected mass lesion. Prominent right hilar nodes measure up to 11 mm in short axis. Axillae: There is no axillary lymphadenopathy. Upper abdomen: Partially visualized upper abdominal viscera is within normal limits. Skeletal structures: The skeletal structures are osteopenic. No lytic or blastic bony lesions are seen. IMPRESSION: 1. Motion compromised examination. 2. There is no evidence of central pulmonary embolus in the main, lobar, or proximal segmental pulmonary arteries. Evaluation of the segmental and subsegmental branches is severely degraded by motion artifact. 3. Suspect a large left perihilar mass lesions associated narrowing of the left- sided bronchi and branches of the left pulmonary artery. 4. Airspace consolidation is seen throughout the left upper lobe. Correlate clinically for evidence of pneumonia. 5. There is a moderate left pleural effusion with atelectasis of the left lower lung. This may be malignant. 6. There is a 2.8 cm lobulated pulmonary nodule at the left apex. Additionally, findings suggests lymphangitic spread of tumor in the left upper lobe. 7. There is bulky mediastinal lymphadenopathy. 8. There are least 5 pulmonary nodules scattered throughout the right lung which are concerning for metastatic disease. 9. Cardiomegaly and emphysema. 10. Additional findings as above. ACT 112: Negative or not required by law. Electronically signed by: Rommel Dial M.D. 09/26/2021 3:55 PM Chest X-Ray 09/26/21 17:02 XR chest 1V portable HISTORY: S/P L Thoracentesis COMPARISON: Chest 09/26/2021. FINDINGS: No pneumothorax. Heart remains enlarged. There are poststernotomy changes. Left perihilar mass and associated left lung consolidation is similar to the prior study. Moderate left pleural effusion also persists. No new focal consolidations within the right lung. IMPRESSION: 1. No pneumothorax. 2. No significant change in the left lung airspace opacities and moderate left pleural effusion. ACT 112: Negative or not required by law. Electronically signed by: Bentley Negrete M.D. 09/26/2021 5:12 PM ECG Additional Comments: ECG on 09/26/2021 11:53 AM with atrial fibrillation, rate 96, nonspecific T wave abnormality in the inferior and lateral leads Code Status & VTE Plan Code Status Full code VTE Prophylaxis Plan VTE Prophylaxis will be ordered: Yes PG Care Time/CCT Total # of Minutes Spent Total Time Spent with Patient: Total time spent is greater than 50% in coordination of care (as documented) at patient's floor/unit and/or counseling patient: Coding Level of Care Code 35112 Initial Inpt Care Lvl 3 Diagnoses Pulmonary nodules/lesions, multiple R91.8 Pleural effusion J90 Pneumonia J18.9 Hypoxia R09.02 Hypertension I10 Stage 2 chronic kidney disease N18.2 PAD (peripheral artery disease) I73.9 CAD (coronary artery disease) I25.10 Acid reflux disease K21.9 Hypercholesterolemia E78.00 Uncontrolled type 2 diabetes mellitus with neurologic complication, with long- term current use of insulin E11.49; E11.65; Z79.4 Depression F32.9 Atrial fibrillation I48.91 Transaminitis R74.01
[2021-09-26] MEDS: ALBUT/IPRATROP 3MG/0.5MG NEB 3 ML VIAL NEB SCH ×2 (14:56→20:23)
[2021-09-26] MEDS ORDERED: FUROSEMIDE 40 MG/4 ML VIAL IV ONE (15:07)
--- NOTE | 2021-09-26 15:23 | XCELERA ---
[id number]
[2021-09-26] MEDS ORDERED: OPTIRAY 320 125ml IV ONE (15:34)
--- NOTE | 2021-09-26 15:57 | CT Scan Report ---
CT ANGIOGRAM OF THE CHEST CLINICAL HISTORY: Pneumonia. Hypoxia. Pleural effusion. COMPARISON STUDY: Chest x-ray dated 09/26/2021. TECHNIQUE: Following the IV administration of 120 cc of Optiray 320, CT angiogram of the chest was pe rformed from the upper abdomen to the thoracic inlet utilizing the pulmonary embolus protocol. Images are reviewed in the axial, sagittal, and coronal planes. 3-D MIPS images are created and assessed. I V contrast was administered without complication. A dose lowering technique was utilized adhering to the principles of ALARA. The examination is degraded by motion artifact. CT DOSE: 916.47 mGy.cm FINDINGS: Thyroid: Imaged portions of the thyroid gland are normal in size and attenuation. Thoracic aorta: There is atherosclerotic calcification of the thoracic aorta, which is normal in juliano hema and demonstrates standard 3-vessel arch anatomy. No dissection is seen. Pulmonary vasculature: The pulmonary trunk is normal in caliber. There are no filling defects identif ied in main, lobar, or proximal segmental pulmonary branches to suggest pulmonary embolus. Evaluation of the peripheral branches is significantly compromised by motion artifact. Heart: The patient is status post midline sternotomy. The heart is enlarged and without pericardial e ffusion. The coronary arteries and mitral annulus are densely calcified. Lungs and pleural spaces: Evaluation of the lung parenchyma is compromised by motion artifact. Mild e mphysematous change is suspected. There is a moderate left pleural effusion with atelectasis of the l eft lower lung. Suspect a large left perihilar mass lesion with associated narrowing of the left-side d bronchi and branches of the left pulmonary artery. Airspace consolidation is seen throughout the le ft upper lobe. There is intralobular septal thickening and nodularity throughout the left upper lobe which may represent lymphangitic spread of tumor. There is a 2.8 x 1.5 cm irregular pulmonary nodule at the left apex seen on image #227. There are least 5 pulmonary nodules in the right upper lobe julio uring up to 0.9 cm. These are seen on images #169, #192, #198, and #211. The trachea is clear. Mediastinum: There is bulky mediastinal lymphadenopathy. A subcarinal node measures 5.1 x 3.0 cm. Pre vascular nodes measure up to 3.8 x 2.5 cm. A high right peritracheal node on image #194 measures 2.4 x 1.8 cm. Catarina: The left hilum is largely obscured by a suspected mass lesion. Prominent right hilar nodes julio ure up to 11 mm in short axis. Axillae: There is no axillary lymphadenopathy. Upper abdomen: Partially visualized upper abdominal viscera is within normal limits. Skeletal structures: The skeletal structures are osteopenic. No lytic or blastic bony lesions are see n. IMPRESSION: 1. Motion compromised examination. 2. There is no evidence of central pulmonary embolus in the main, lobar, or proximal segmental pulmon ajith arteries. Evaluation of the segmental and subsegmental branches is severely degraded by motion ar tifact. 3. Suspect a large left perihilar mass lesions associated narrowing of the left-sided bronchi and bra nches of the left pulmonary artery. 4. Airspace consolidation is seen throughout the left upper lobe. Correlate clinically for evidence o f pneumonia. 5. There is a moderate left pleural effusion with atelectasis of the left lower lung. This may be mal ignant. 6. There is a 2.8 cm lobulated pulmonary nodule at the left apex. Additionally, findings suggests lym phangitic spread of tumor in the left upper lobe. 7. There is bulky mediastinal lymphadenopathy. 8. There are least 5 pulmonary nodules scattered throughout the right lung which are concerning for m etastatic disease. 9. Cardiomegaly and emphysema. 10. Additional findings as above. ACT 112: Negative or not required by law. Electronically signed by: Rommel Dial M.D. 09/26/2021 3:55 PM
[2021-09-26 16:13] LABS: Adenovirus PCR Not Detected (NotDetected); Bordetella parapertussis PCR Not Detected (NotDetected); Bordetella pertussis PCR Not Detected (NotDetected); Chlamydia pneumoniae PCR Not Detected (NotDetected); Coronavirus 229E PCR Not Detected (NotDetected); Coronavirus CoV-2 (COVID19)PCR Not Detected (NotDetected); Coronavirus HKU1 PCR Not Detected (NotDetected); Coronavirus NL63 PCR Not Detected (NotDetected); Coronavirus OC43PCR Not Detected (NotDetected); Human Metapneumovirus PCR Not Detected (NotDetected); Influenza A PCR Not Detected (NotDetected); Influenza B PCR Not Detected (NotDetected); Mycoplasma pneumoniae PCR Not Detected (NotDetected); Parainfluenza Virus 1 PCR Not Detected (NotDetected); Parainfluenza Virus 2 PCR Not Detected (NotDetected); Parainfluenza Virus 3 PCR Not Detected (NotDetected); Parainfluenza Virus 4 PCR Not Detected (NotDetected); Respiratory Syncytial VirusPCR Not Detected (NotDetected); Rhinovirus/Enterovirus PCR Not Detected (NotDetected)
[2021-09-26] MEDS ORDERED: LIDOCAINE 1% LOCAL 20 ML VIAL ONE (16:30)
--- NOTE | 2021-09-26 17:14 | XRay Report ---
XR chest 1V portable HISTORY: S/P L Thoracentesis COMPARISON: Chest 09/26/2021. FINDINGS: No pneumothorax. Heart remains enlarged. There are poststernotomy changes. Left perihilar m ass and associated left lung consolidation is similar to the prior study. Moderate left pleural effus ion also persists. No new focal consolidations within the right lung. IMPRESSION: 1. No pneumothorax. 2. No significant change in the left lung airspace opacities and moderate left pleural effusion. ACT 112: Negative or not required by law. Electronically signed by: Bentley Negrete M.D. 09/26/2021 5:12 PM
--- NOTE | 2021-09-26 17:31 | Pulmonary Consultation ---
Date of Consultation September 26, 2021 Assessment & Plan (1) Pneumonia: (2) Pleural effusion: (3) Pulmonary nodules/lesions, multiple: Attending: Dr. Man Impression: This is a 75-year-old male with a 50+ pack year smoking history. He presents with progressive shortness of breath. He is Covid negative. He has abnormal CT scan of the chest including large left pleural eff usion and multiple pulmonary nodules bilaterally. Recommendations: 1. Left pleural effusion: * Patient has CAD and PAD and consequently is on clopidogrel (Plavix) * Unable to safely stop clopidogrel due to severe vascular disease * Centesis done at the bedside with 19-gauge centesis needle under ultrasound guidance * 30 mL of fluid was obtained and sent to the lab to look for cytology and pleural pH * Continue to monitor oxygenation. Unclear if patient has COPD. [id number] history of smoking. Keep SaO2 in the low 90s. 2. Multiple pulmonary nodules: * 2.8 cm nodule in the left upper lobe apex. * 5 pulmonary nodules on the right side * CT scan appears to show lymphatic spread of metastatic disease * Bulky mediastinal lymphadenopathy * Pleural fluid sent to lab for analysis of cytology. * Currently not safe to do bronchoscopy with EBUS but this would be preferred for diagnostic tissue 3. Presumed malignancy: * With patient's extensive smoking history and presentation of CT scan, this appears consistent with small cell carcinoma * I discussed this with the patient. He is aware that there is a likelihood that this is malignancy * Will await results from pleural fluid obtained 4. Pneumonia: * Blood cultures pending * Continue IV Zosyn * Procalcitonin negative at 0.08 * WBC 13.48 * Afebrile * No eosinophils Thank you for including us in the care of this patient. Please refer to Dr. Man's addendum for further recommendations. We will continue to follow along with you at this time. Supervising Physician Co-Signing Physician Notes Agree with note as above. Likely malignancy with possible metastatic spread. If malignancy is identified, would recommend radiation/oncology consultation to consider radiation of the left upper lobe given postobstructive process. More tissue was required despite the pleural fluid, can consider EBUS to biopsy lymph nodes. Would recommend PET and MRI brain as an outpatient if malignancy is identified on pleural fluid. History of Present Illness Reason for Consultation: Pleural effusion, abnormal chest CT Requesting Physician: Dr. Garza Attending Physician: Destiny Garza MD History of Present Illness Attending: Dr. Man This is a 75-year-old male with history of prostate CA, hypertension, cerebrovascular disease, peripheral arterial disease, Peripheral vascular disease, CAD, GERD, hypercholesterolemia, uncontrolled diabetes mellitus type 2, diabetic peripheral neuropathy, diabetic retinopathy, depression, BPH, obesity with a BMI of 38.8 kg/m. The patient presented to the emergency room with a 3-day progression of shortness of breath. He has mild cough, and increased lower extremity swelling. Patient was hypoxic with an SaO2 of 83% on admission. He is on 2 L of supplemental oxygen via nasal cannula and is saturating the mid 90s. Blood pressure is controlled. Patient has a 90-alok-lfkl smoking history but states that he quit smoking 26 years ago. He denies any previous history of lung cancer. He does have a history of prostate cancer. Patient has no sputum production. He denies any hemoptysis. The patient continues on Plavix because of his severe vascular disease. He has no chest pain or tightness. He has no unusual bleeding. He denies any other acute complaints at this time. Patient has no record of the Covid vaccinations be administered. Pneumococcal vaccination administered 04/18/2010 and 12/07/2014. Influenza vaccination administered 07/10/2021 Allergies Allergy/AdvReac Type Severity Reaction Status Date / Time Sulfa (Sulfonamide Allergy Mild Rash Verified 09/26/21 13:05 Antibiotics) sulfamethoxazole Allergy Mild Rash Verified 09/26/21 13:05 [From Bactrim] trimethoprim [From Bactrim] Allergy Mild Rash Verified 09/26/21 13:05 codeine AdvReac Mild Nausea/"wild Verified 09/26/21 13:05 dreams" Home Medications Medication Instructions Recorded Confirmed Type aspirin 325 mg tablet (Filiberto 325 mg PO QAM 05/04/19 09/26/21 History Aspirin) cyanocobalamin (vitamin B-12) 1,000 mcg PO QAM 08/09/20 09/26/21 History 1,000 mcg tablet (Vitamin B-12) insulin syringe-needle U-100 0.5 #600 ea 10/10/20 08/31/21 Rx mL 31 gauge x 5/16" (BD Insulin Syringe Ultra-Fine) metformin 850 mg tablet 850 mg PO TID #270 tab 10/19/20 09/26/21 Rx trazodone 100 mg tablet 100 mg PO HS #30 tab 02/13/21 09/26/21 Rx insulin regular human 100 unit/mL 35 unit SQ TID 30 Days #40 ml 03/24/21 09/26/21 Rx injection solution (Novolin R Regular U-100 Insulin) amlodipine 10 mg tablet (Norvasc) 10 mg PO QAM 07/28/21 09/26/21 History empagliflozin 10 mg tablet 10 mg PO QAM 07/28/21 09/26/21 History (Jardiance) famotidine 10 mg tablet (Acid 10 mg PO QAM 07/28/21 09/26/21 History 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 (famotidine)) fluoxetine 20 mg capsule (Prozac) 20 mg PO QAM 07/28/21 09/26/21 History losartan 100 mg tablet (Cozaar) 100 mg PO QAM 07/28/21 09/26/21 History metoprolol tartrate 50 mg tablet 75 mg PO BID 07/28/21 09/26/21 History (Lopressor) clopidogrel 75 mg tablet (Plavix) 75 mg PO QAM #90 tab 08/31/21 09/26/21 Rx simvastatin 80 mg tablet (Zocor) 80 mg PO HS #90 tab 08/31/21 09/26/21 Rx insulin glargine 100 unit/mL 60 unit SQ BID #11 vial 09/05/21 09/26/21 Rx subcutaneous solution (Lantus U-100 Insulin) Patient History Medical History Anxiety CAD (coronary artery disease) Chronic kidney disease, stage II (mild) Diabetic nephropathy DM (diabetes mellitus), type 2 Hypertension Hyponatremia Prostate CA Treated with surgery and then radiation in 2001 Surgical History History of appendectomy History of cardiac [place] [facility] [place] History of colonoscopy History of heart artery stent 1996--1 stent History of lumbar discectomy History of prostate biopsy malignant History of radical prostatectomy 2001 History of tooth extraction full upper denture History of wisdom tooth extraction S/P CABG x 3 d/t CAD 2006 [place] [facility] [place]follows with Dr. Small Family History Father Myocardial infarction Mother Myocardial infarction Family history of diabetes mellitus Sister Family history of diabetes mellitus Other No family history of adverse response to anesthesia Prostate cancer Denies family history of Ovarian cancer Breast cancer Colorectal cancer Social History Smoking Status: Former smoker Tobacco Type: Cigarettes Number of Years Since Quit: 21; Second Hand Exposure: No; Do You Dip or Chew Tobacco: No; Tobacco Cessation Education Requested by Patient: No Hx Alcohol Use: Yes Alcohol type: beer Hx Substance Use: No Preferred Language: Andorran Communication Ability: Effective Presto Log Operator Required: No Beliefs That Will Affect Care: None marital status: Current Living Situation: Spouse current occupational status: retired How many Children do You have: 2 Other Information That Helps Us Care for You: No Feels Safe at Home: Yes Childhood Exposure to Second-Hand Smoke: No caffeine: Yes Dental Care, Regularly: Yes Physical Activity Frequency: 1-2 Times per Week Seatbelt Use: always Sunscreen Use: No Assistive Devices: Cane, Denture - Upper and Glasses Review of Systems Review of Systems: All systems reviewed & are unremarkable except as noted in Subjective Physical Exam Physical Exam: GENERAL : No acute distress. Able to sit on edge of bed without discomfort EYES: No icterus, gaze conjugate NOSE: No evidence of epistaxis MOUTH: No lesions or candidiasis NECK: Supple LUNGS: Bibasilar crackles. Patient has decreased breath sounds on the left side. HEART: Irregular, irregular. Currently tachycardic in the low 100s ABDOMEN: Soft, NT, ND, BS Present EXTREMITIES: Bilateral LE edema, pedal pulses intact and equal bilaterally NEURO: A&OX3. Results & Data Results & Data ([facility]) Vital Signs (Past 12 Hours) Vital Signs Temp Pulse Pulse Resp Resp Resp BP 09/26/21 16:46 122 H 25 H 115/84 09/26/21 16:30 118 H 18 115/84 09/26/21 16:00 113 H 19 09/26/21 15:40 126 H 25 H 138/63 09/26/21 15:00 99 H 21 133/89 09/26/21 14:56 99 H 18 09/26/21 14:30 106 H 29 H 09/26/21 14:00 98 H 107 H 28 H 110/71 09/26/21 13:30 09/26/21 13:00 98 H 100 H 29 H 09/26/21 12:58 98 H 22 09/26/21 12:30 103 H 24 09/26/21 12:00 98 H 21 09/26/21 11:46 95 H 18 09/26/21 11:30 89 17 09/26/21 11:27 95 H 19 09/26/21 10:12 25 H 09/26/21 10:11 32 H 09/26/21 10:00 36.5 C 114 H 24 107/63 BP Pulse Ox Pulse Ox Pulse Ox 09/26/21 16:46 94 09/26/21 16:30 91 09/26/21 16:00 92 09/26/21 15:40 90 09/26/21 15:00 94 09/26/21 14:56 92 09/26/21 14:30 94 09/26/21 14:00 110/71 94 09/26/21 13:30 92 09/26/21 13:00 92 09/26/21 12:58 93 09/26/21 12:30 09/26/21 12:00 93 09/26/21 11:46 137/77 93 09/26/21 11:30 92 09/26/21 11:27 91 09/26/21 10:12 90 09/26/21 10:11 86 L 09/26/21 10:00 90 Laboratory Results 09/26/21 11:55 09/26/21 11:55 COVID-19 Results 09/26/21 09/26/21 10:05 14:18 SARS-CoV-2 (PCR) NEGATIVE Not Detected INR 1.1 (0.9-1.1) 09/26/21 11:55 Diagnostic Findings Chest X-Ray 09/26/21 11:33 SINGLE VIEW CHEST CLINICAL HISTORY: Dyspnea. FINDINGS: An AP, portable, upright chest radiograph is compared to study dated 06/12/2006. The patient is status post midline sternotomy. The heart is enlarged noting atherosclerotic calcification of the thoracic aorta. There is prominence of the pulmonary vasculature. There are multifocal airspace opacities, most confluent at the left lung. There is elevation of the left hemidiaphragm with a layering left pleural effusion. No pneumothorax is seen. The skeletal structures are osteopenic. The bony thorax is grossly intact. IMPRESSION: 1. Cardiomegaly with evidence of congestive failure. 2. There are airspace opacities throughout both lungs, asymmetrically grea ter/confluent on the left. Differential considerations include pulmonary edema and/or multifocal pneumonia. Clinical correlation will be essential. 3. Layering left pleural effusion. ACT 112: Negative or not required by law. Electronically signed by: Rommel Dial M.D. 09/26/2021 11:58 AM Chest CTA 09/26/21 13:10 CT ANGIOGRAM OF THE CHEST CLINICAL HISTORY: Pneumonia. Hypoxia. Pleural effusion. COMPARISON STUDY: Chest x-ray dated 09/26/2021. TECHNIQUE: Following the IV administration of 120 cc of Optiray 320, CT angiogram of the chest was performed from the upper abdomen to the thoracic inlet utilizing the pulmonary embolus protocol. Images are reviewed in the axial, sagittal, and coronal planes. 3-D MIPS images are created and assessed. I V contrast was administered without complication. A dose lowering technique was utilized adhering to the principles of ALARA. The examination is degraded by motion artifact. CT DOSE: 916.47 mGy.cm FINDINGS: Thyroid: Imaged portions of the thyroid gland are normal in size and attenuation. Thoracic aorta: There is atherosclerotic calcification of the thoracic aorta, which is normal in caliber and demonstrates standard 3-vessel arch anatomy. No dissection is seen. Pulmonary vasculature: The pulmonary trunk is normal in caliber. There are no filling defects identified in main, lobar, or proximal segmental pulmonary branches to suggest pulmonary embolus. Evaluation of the peripheral branches is significantly compromised by motion artifact. Heart: The patient is status post midline sternotomy. The heart is enlarged and without pericardial effusion. The coronary arteries and mitral annulus are densely calcified. Lungs and pleural spaces: Evaluation of the lung parenchyma is compromised by motion artifact. Mild emphysematous change is suspected. There is a moderate left pleural effusion with atelectasis of the left lower lung. Suspect a large left perihilar mass lesion with associated narrowing of the left-sided bronchi and branches of the left pulmonary artery. Airspace consolidation is seen throughout the left upper lobe. There is intralobular septal thickening and nod ularity throughout the left upper lobe which may represent lymphangitic spread of tumor. There is a 2.8 x 1.5 cm irregular pulmonary nodule at the left apex seen on image #227. There are least 5 pulmonary nodules in the right upper lobe measuring up to 0.9 cm. These are seen on images #169, #192, #198, and #211. The trachea is clear. Mediastinum: There is bulky mediastinal lymphadenopathy. A subcarinal node measures 5.1 x 3.0 cm. Prevascular nodes measure up to 3.8 x 2.5 cm. A high right peritracheal node on image #194 measures 2.4 x 1.8 cm. Catarina: The left hilum is largely obscured by a suspected mass lesion. Prominent right hilar nodes measure up to 11 mm in short axis. Axillae: There is no axillary lymphadenopathy. Upper abdomen: Partially visualized upper abdominal viscera is within normal limits. Skeletal structures: The skeletal structures are osteopenic. No lytic or blastic bony lesions are seen. IMPRESSION: 1. Motion compromised examination. 2. There is no evidence of central pulmonary embolus in the main, lobar, or proximal segmental pulmonary arteries. Evaluation of the segmental and subsegmental branches is severely degraded by motion artifact. 3. Suspect a large left perihilar mass lesions associated narrowing of the left- sided bronchi and branches of the left pulmonary artery. 4. Airspace consolidation is seen throughout the left upper lobe. Correlate clinically for evidence of pneumonia. 5. There is a moderate left pleural effusion with atelectasis of the left lower lung. This may be malignant. 6. There is a 2.8 cm lobulated pulmonary nodule at the left apex. Additionally, findings suggests lymphangitic spread of tumor in the left upper lobe. 7. There is bulky mediastinal lymphadenopathy. 8. There are least 5 pulmonary nodules scattered throughout the right lung which are concerning for metastatic disease. 9. Cardiomegaly and emphysema. 10. Additional findings as above. ACT 112: Negative or not required by law. Electronically signed by: Rommel Dial M.D. 09/26/2021 3:55 PM Chest X-Ray 09/26/21 17:02 XR chest 1V portable HISTORY: S/P L Thoracentesis COMPARISON: Chest 09/26/2021. FINDINGS: No pneumothorax. Heart remains enlarged. There are poststernotomy changes. Left perihilar mass and associated left lung consolidation is similar to the prior study. Moderate left pleural effusion also persists. No new focal consolidations within the right lung. IMPRESSION: 1. No pneumothorax. 2. No significant change in the left lung airspace opacities and moderate left pleural effusion. ACT 112: Negative or not required by law. Electronically signed by: Bentley Negrete M.D. 09/26/2021 5:12 PM PG Care Time/CCT Total # of Minutes Spent Total Time Spent with Patient: Total time spent is greater than 50% in coordination of care (as documented) at patient's floor/unit and/or counseling patient: 65 minutes Coding Level of Care Code 82859 Initial Inpt Care Lvl 3 Diagnoses Pneumonia J18.9 Pleural effusion J90 Pulmonary nodules/lesions, multiple R91.8 Time Spent (min) 65
[2021-09-26] MEDS ORDERED: GLUCOSE 40% GEL 15 GM TUBE PO PRN (17:41)
[2021-09-26] MEDS ORDERED: DEXTROSE 50% 50 ML SYRINGE IV PRN (17:41)
[2021-09-26] MEDS ORDERED: GLUCAGON FOR INJ 1 MG VIAL SQ PRN (17:41)
[2021-09-26] MEDS ORDERED: ACETAMINOPHEN 325 MG TAB PO PRN (17:41)
[2021-09-26] MEDS ORDERED: GLUCOSE 10 TABS/TUBE PO PRN (17:41)
[2021-09-26] MEDS ORDERED: ONDANSETRON INJ 2 MG/ML 2 ML VIAL IV PRN (17:41)
[2021-09-26] MEDS ORDERED: cefTRIAXone SODIUM 2,000 MG in DEXTROSE 5% 50 ML IV SCH (18:15)
[2021-09-26] MEDS: INSULIN ASPART 100 UNITS/ML 3 ML PEN SC SCH ×2 (18:35→20:35)
--- NOTE | 2021-09-26 19:36 | Procedure Note ---
Procedure Note Date of Service September 26, 2021 Note Attending: Dr. Man Impression: There is a 75-year-old male with a 14-bzby-lwjw smoking history the presents with shortness of breath. CT scan shows moderate left pleural effusion with abnormal CT findings including possible pneumonia and 2.8 cm nodule in the left apex and 5 additional pulmonary nodules on the right lung. Appearance of CT seems as though it may be lymphangitic spread of malignancy. Pleural effusion should be tapped with thoracentesis. However, patient on clopidogrel for severe vascular disease. Unsafe to stop Plavix at this time. A centesis was done of the pleural fluid and sent to the lab. Dr. Man specifically delegated the task of obtaining his consent and performing the centesis at bedside to Rommel Vaca PA-C INDICATION: Left pleural effusion with multiple pulmonary nodules bilaterally and bulky mediastinal lymphadenopathy PROCEDURE: Centesis of the left pleural fluid DATE: 09/26/2021 TIME: Time out at 16:27 PROVIDER: Rommel Vaca PA-C at the direction of Dr. Man CONSENT: Was obtained prior to the procedure by Rommel Vaca PA-C at the direction of Dr. Man and placed on the chart PROCEDURE SUMMARY: Bedside ultra sound was performed to identify an appropriate puncture site. Images were saved to the Xceive/ProtoExchange system. A time out was performed. The patient was prepped and draped in a sterile manner using chlorhexidine scrub after the appropriate level was confirmed by ultrasound. A fenestrated drape was placed over the marked site for procedure. 1% lidocaine was used to numb the region. A 19-gauge centesis needle was then used under negative pressure to locate fluid. Cloudy yellow fluid was evacuated. The patient had 30 mL removed. The puncture site was then covered with two Band-Aids with no evidence of bleeding. No immediate complications were noted during the procedure. Dr. Man and Dr. Garza were contacted after the procedure with results. A post-procedure chest x-ray was completed and reviewed at bedside by this provider and no pneumothorax was identified. The patient tolerated the procedure well with no shortness of breath, no hypotension, no increase in heart rate, and no other acute symptoms. Coding CPT Codes Pulmonary/Thoracic - Pulmonary and Thoracic: 74819 Thoracentesis w imaging ([id number]) Pulmonary/Thoracic - Pulmonary and Thoracic: 83107 US, Chest, real time with imaging documentation ([id number]) [facility] [place] Procedure Codes (Charges) Pulmonary/Thoracic Procedure 1: Pulmonary and Thoracic: 00695 Thoracentesis w imaging Procedure 2: Pulmonary and Thoracic: 23731 US, Chest, real time with imaging documentation
[2021-09-26] MEDS: traZODone HCL 100 MG TAB PO SCH (20:32)
[2021-09-26] MEDS: SIMVASTATIN 80 MG TAB PO SCH (20:32)
[2021-09-26] MEDS: METOPROLOL TARTRATE 100 MG TAB PO SCH (20:32)
[2021-09-26] MEDS: INSULIN GLARGINE SOLOSTAR 100 UNITS/ML 3 ML PEN SC SCH (20:32)
[2021-09-26] MEDS ORDERED: LANTUS PER UNIT CHARGE SQ SCH (21:00)
[2021-09-26 23:19] LABS: Glucose Pleural Fluid 113 mg/dl
[2021-09-26 23:29] LABS: LDH Pleural Fluid 589 U/L; Total Protein Pleural Fluid 3.6 g/dl
[2021-09-26 23:45] LABS: Appearance Pleural Fluid HAZY; Basophils, Fluid 0 %; Color Pleural Fluid YELLOW; Eosinophils, Fluid 0 %; Lymphocytes, Fluid 10 %; Mono,Macrophage,Mesothelial 82 %; Neutrophils, Fluid 8 %; RBC Pleural Fluid (A) < 3000 /uL; Source Pleural Fluid LEFT LUNG; WBC Pleural Fluid (A) 1605 /uL
[2021-09-27] MEDS: ALBUT/IPRATROP 3MG/0.5MG NEB 3 ML VIAL NEB SCH (07:14)
[2021-09-27 07:40] LABS: Basophils # (auto) 0.01 K/uL (0-0.2); Basophils % (auto) 0.1 %; Hematocrit (blood only) 40.5 % (42-52); Immature Granulocytes # (auto) 0.04 K/uL (0.00-0.02); Immature Granulocytes % (auto) 0.3 %; Lymphocytes # (auto) 0.87 K/uL (1.2-3.4); Lymphocytes % (auto) 7.4 %; Mean Corpuscular Hemoglobin 28.8 pg (25-34); Mean Corpuscular Hgb Conc 32.1 g/dL (32-36); Mean Corpuscular Volume 89.8 fL (80-100); Mean Platelet Volume 8.2 fL (7.4-10.4); Monocytes # (auto) 0.67 K/uL (0.11-0.59); Monocytes % (auto) 5.7 %; Neutrophils # (auto) 10.21 K/uL (1.4-6.5); Neutrophils % (auto) 86.5 %; Platelet Count 574 K/uL (130-400); RDW Coefficient of Variation 14.7 % (11.5-14.5); RDW Standard Deviation 47.9 fL (36.4-46.3); Red Blood Count 4.51 M/uL (4.7-6.1)
[2021-09-27 08:10] LABS: Albumin Level 2.3 gm/dl (3.4-5.0); BUN Creatinine Ratio 26.3 (10-20); Calcium 9.2 mg/dl (8.5-10.1); Creatinine Clr Calc Pharmacy 62.4 ml/min; Est GFR (African American) 67.7 ml/min; Est GFR (Non-African American) 58.5 ml/min; Magnesium 2.4 mg/dl (1.8-2.4); Potassium 4.5 mmol/L (3.5-5.1)
[2021-09-27 08:23] LABS: Albumin Globulin Ratio 0.4 (0.9-2); Bilirubin,Total 0.4 mg/dl (0.2-1); Globulin 5.2 gm/dl (2.5-4.0); Total Protein 7.5 gm/dl (6.4-8.2)
[2021-09-27] MEDS: INSULIN ASPART 100 UNITS/ML 3 ML PEN SC SCH ×4 (08:24→20:59)
[2021-09-27] MEDS: INSULIN GLARGINE SOLOSTAR 100 UNITS/ML 3 ML PEN SC SCH (08:28)
[2021-09-27] MEDS: ASPIRIN 325 MG ECTAB PO SCH (08:39)
[2021-09-27] MEDS: amLODIPine BESYLATE 5 MG TAB PO SCH (08:39)
[2021-09-27] MEDS: FLUoxetine HCL 20 MG CAP PO SCH (08:40)
[2021-09-27] MEDS: FAMOTIDINE 10 MG TABLET PO SCH (08:40)
[2021-09-27] MEDS: CLOPIDOGREL BISULFATE 75 MG TAB PO SCH (08:40)
[2021-09-27] MEDS: CYANOCOBALAMIN 500 MCG TABLET (VITAMIN B-12) PO SCH (08:40)
[2021-09-27] MEDS: METOPROLOL TARTRATE 100 MG TAB PO SCH ×2 (08:41→20:47)
[2021-09-27] MEDS: LOSARTAN POTASSIUM 50 MG TAB PO SCH (08:41)
[2021-09-27 08:45] LABS: Estimated Average Glucose 197 mg/dl; Hemoglobin A1C 8.5 % (4.5-5.6)
[2021-09-27] MEDS: AZITHROMYCIN 250 MG in DEXTROSE 5% 250 ML IV SCH (09:04)
[2021-09-27] MEDS ORDERED: ALBUT/IPRATROP 3MG/0.5MG NEB 3 ML VIAL NEB PRN (10:20)
[2021-09-27] MEDS ORDERED: PHARMACY GLYCEMIC MGMT CONSULT PRN (12:25)
[2021-09-27] MEDS: cefTRIAXone SODIUM 2,000 MG in DEXTROSE 5% 50 ML IV SCH (13:16)
--- NOTE | 2021-09-27 15:08 | Pharmacy Report ---
Pharmacy Glycemic Short Note 2 - Date of Service September 27, 2021 - Glycemic Short BSG Results (Last 24 hours): 09/26/21 09/26/21 09/26/21 17:58 20:12 22:23 Glucose POC Glucose 203 H 300 H 306 H* 09/27/21 09/27/21 09/27/21 00:27 07:12 07:25 Glucose 237 H POC Glucose 259 H 227 H 09/27/21 09/27/21 11:24 11:25 Glucose POC Glucose 355 H* 409 H* OUTPATIENT ANTIDIABETIC REGIMEN: * HbA1c = 8.5% on 09/27/21 * Jardiance 10 mg PO QAM * Lantus 60 units SQ BID * Regular Insulin 35 units SQ TIDM * Metformin 850 mg PO TIDM ASSESSMENT: * 75 y/o M admitted for Pneumonia and A.fib yesterday. Pt with history of Type 2 diabetes managed at home on several anti-diabetic meds as noted above. * Will hold Jardiance, Metformin and Regular insulin SQ and continue patient on basal Lantus as ordered yesterday and Novolog ACHS. * Lantus 60 units SQ BID resumed last night (home dose) but fasting BSG was 227 mg/dl this AM. * Pre-lunch BSG trended up to 409 mg/dl today. Novolog parameters tightened based on wt and stress of 3 and also taking into consideration that patient was on a significant dose of regular insulin TID at home. * If BSG continue to trend up, then plan on tightening Novolog parameters further this evening. PLAN FOR INPATIENT GLYCEMIC CONTROL: * Hold outpatient oral diabetes medications * Basal insulin * Lantus 60 units SQ BID * Bolus insulin * NovoLog per scale ACHS or Q6hrs while NPO * Goal Range: Low 110 mg/dL - High 140 mg/dL * Correction Factor: 10 mg/dL/unit * Nutritional / Prandial insulin per carb ratio of 1 unit per 5 grams CHO consumed PLAN FOR DISCHARGE: * TBD
--- NOTE | 2021-09-27 16:40 | Pulmonology Progress Note ---
Date of Service September 27, 2021 Assessment & Plan (1) Pneumonia: (2) Pleural effusion: (3) Pulmonary nodules/lesions, multiple: Plan: Attending: Dr. Man Impression: This is a 75-year-old male with a 50+ pack year smoking history. He presents with progressive shortness of breath. He is Covid negative. He has abnormal CT scan of the chest including large left pleural effusion and multiple pulmonary nodules bilaterally. Pleural fluid collected was centesis of the left side. Atypical cells present. Cellblock pending. Expect stains back tomorrow afternoon. Recommendations: 1. Left pleural effusion: * Patient has CAD and PAD and consequently is on clopidogrel (Plavix) * Unable to safely stop clopidogrel due to severe vascular disease * Centesis done at the bedside with 19-gauge centesis needle under ultrasound guidance 09/26/2021 * 30 mL of fluid was obtained and sent to the lab to look for cytology and pleural pH. Fluid does not appear to be infected as glucose is high. Pleural pH not reported. * Continue to monitor oxygenation. Unclear if patient has COPD. [id number] history of smoking. Keep SaO2 in the low 90s. * Diminished breath sounds throughout the left lung goncalves. 2. Multiple pulmonary nodules: * 2.8 cm nodule in the left upper lobe apex. * 5 pulmonary nodules on the right side * CT scan appears to show lymphatic spread of metastatic disease * Bulky mediastinal lymphadenopathy * Pleural fluid sent to lab for analysis of cytology. Expect some results 09/28/2021 afternoon * Currently not safe to do bronchoscopy with EBUS but this would be preferred for diagnostic tissue * If malignant fluid returns from pleural tap, suggest oncology consult to determine if we have enough tissue from fluid to begin treatment. 3. Presumed malignancy: * With patient's extensive smoking history and presentation of CT scan, this a ppears consistent with small cell carcinoma * I discussed this with the patient. He is aware that there is a likelihood that this is malignancy * Will await results from pleural fluid obtained. Discussed with Dr. Anderson in pathology today. Expect preliminary results 09/28/2021 4. Pneumonia: * Blood cultures collected 09/26/2021 with no growth to date. * Currently receiving ceftriaxone and azithromycin IV. Received IV Zosyn in the emergency department. Day #2 IV antibiotics * Procalcitonin negative at 0.08 * WBC 13.48 on admission and now 11.8 * Afebrile * No eosinophils Thank you for including us in the care of this patient. Please refer to Dr. Man's addendum for further recommendations. We will continue to follow along with you pending cytology results. Admission and Anticipated Discharge Date Admission Date: September 26, 2021 Subjective Attending: Dr. Man Patient seen and examined at bedside room 2 411. Patient states that he feels better than when admitted. Band-Aids removed from centesis site with no bleeding. Patient has no chest pain, flank pain, shoulder pain. Chest x-ray does not show any evidence of pneumothorax. Patient has no other acute complaints at this time. Denies fever, chills, sweats, rigors. No significant sputum production. No hemoptysis. Review of Systems Review of Systems: All systems reviewed & are unremarkable except as noted in Subjective Physical Exam Physical Exam: GENERAL : No acute distress EYES: No icterus, gaze conjugate NOSE: No evidence of epistaxis MOUTH: No lesions or candidiasis NECK: Supple LUNGS: Coarse crackles on the right base. Diminished breath sounds in all goncalves on the left. HEART: Regular, rate controlled ABDOMEN: Soft, NT, ND, BS Present EXTREMITIES: B/L LE edema, pedal pulses intact and equal bilaterally NEURO: A&OX3 Results & Data Results & Data ([facility]) Vital Signs (Past 12 Hours) Vital Signs Temp Pulse Resp BP Pulse Ox 09/27/21 14:03 37.1 C 99 H 18 122/75 89 L 09/27/21 11:07 37.1 C 92 H 18 122/76 91 09/27/21 07:45 36.4 C L 89 18 132/77 92 09/27/21 07:16 115 H 18 92 Laboratory Results 09/27/21 07:12 09/27/21 07:12 COVID-19 Results 09/26/21 09/26/21 10:05 14:18 SARS-CoV-2 (PCR) NEGATIVE Not Detected Diagnostic Findings No further diagnostic images since last night. PG Care Time/CCT Total # of Minutes Spent Total Time Spent with Patient: Total time spent is greater than 50% in coordination of care (as documented) at patient's floor/unit and/or counseling patient: 20 minutes Coding Level of Care Code 58679 Subseq Hosp Care Lvl 2 Diagnoses Pneumonia J18.9 Pleural effusion J90 Pulmonary nodules/lesions, multiple R91.8 Time Spent (min) 20
--- NOTE | 2021-09-27 16:44 | Cardiology Consultation ---
Date of Consultation September 27, 2021 Assessment & Plan (1) Atrial fibrillation: -recent onset likely related to his acute illness. -arrhythmia is asymptomatic. -would continue metoprolol tartrate for rate control. -will eventually need a novel agent for long-term anticoagulation. (2) CAD (coronary artery disease): -history of 3 vessel bypass in 2005. -has been quiescent on medical management. (3) Hypertension: -adequate control on current regimen. (4) Hypercholesterolemia: -continue simvastatin. (5) PAD (peripheral artery disease): -history of a total occlusion of the right SFA -angioplasty of the right iliac artery, January 2021 -still experiences limiting claudication. History of Present Illness Attending Physician: Elbert Carrera MD History of Present Illness Mr. Sky is a 75-year-old male admitted yesterday with a postobstructive pneumonia and new onset atrial fibrillation. This consultation was ordered to assistance cardiac management. Of note, patient is well known to me from the outpatient setting. The patient was in his usual state of health until approximately 4 days prior to presentation. He began to note profound dyspnea which was limiting his usual daily activities. He presented to the emergency room and was found to have a large left-sided postobstructive pneumonia with extensive pulmonary masses and mediastinal lymphadenopathy. He was noted to be significant hypoxic in the emergency room. He was also in atrial fibrillation with a controlled ventricular response. The patient has never known of the diagnosis of atrial fibrillation. He has not experienced any palpitations during this most recent episode. The patient carries a history of coronary artery disease having undergone a 3 vessel bypass in 2005. He also has a history of significant peripheral vascular disease with a total occlusion of the right SFA. He had an angioplasty performed on the right iliac artery in January 2021. He still experiences limiting claudication. His medications reviewed in detail. Past medical and surgical history 1. CABG times 3-2005 2. Hypertension 3. Hypercholesterolemia 4. LVH 5. Mild mitral regurgitation 6. Paroxysmal atrial fibrillation-September 2021 7. Peripheral vascular disease-see above 8. Diabetes 9. Diabetic triopathy 10. Chronic renal failure 11. GERD 12. Anxiety/depression 13. Prostate carcinoma-2001 14. Prostatectomy-2001 15. Lumbar diskectomy 16. Appendectomy Social history and lives with his Retired Quit tobacco use 26 years ago Occasional alcohol Family history Noncontributory Review of systems A 10 point review systems was undertaken and negative except that described above. Allergies Allergy/AdvReac Type Severity Reaction Status Date / Time Sulfa (Sulfonamide Allergy Mild Rash Verified 09/26/21 13:05 Antibiotics) sulfamethoxazole Allergy Mild Rash Verified 09/26/21 13:05 [From Bactrim] trimethoprim [From Bactrim] Allergy Mild Rash Verified 09/26/21 13:05 codeine AdvReac Mild Nausea/"wild Verified 09/26/21 13:05 dreams" Home Medications Medication Instructions Recorded Confirmed Type aspirin 325 mg tablet (Filiberto 325 mg PO QAM 05/04/19 09/26/21 History Aspirin) cyanocobalamin (vitamin B-12) 1,000 mcg PO QAM 08/09/20 09/26/21 History 1,000 mcg tablet (Vitamin B-12) insulin syringe-needle U-100 0.5 #600 ea 10/10/20 08/31/21 Rx mL 31 gauge x 5/16" (BD Insulin Syringe Ultra-Fine) metformin 850 mg tablet 850 mg PO TID #270 tab 10/19/20 09/26/21 Rx trazodone 100 mg tablet 100 mg PO HS #30 tab 02/13/21 09/26/21 Rx insulin regular human 100 unit/mL 35 unit SQ TID 30 Days #40 ml 03/24/21 09/26/21 Rx injection solution (Novolin R Regular U-100 Insulin) amlodipine 10 mg tablet (Norvasc) 10 mg PO QAM 07/28/21 09/26/21 History empagliflozin 10 mg tablet 10 mg PO QAM 07/28/21 09/26/21 History (Jardiance) famotidine 10 mg tablet (Acid 10 mg PO QAM 07/28/21 09/26/21 History Passport Application Examiner (famotidine)) fluoxetine 20 mg capsule (Prozac) 20 mg PO QAM 07/28/21 09/26/21 History losartan 100 mg tablet (Cozaar) 100 mg PO QAM 07/28/21 09/26/21 History metoprolol tartrate 50 mg tablet 75 mg PO BID 07/28/21 09/26/21 History (Lopressor) clopidogrel 75 mg tablet (Plavix) 75 mg PO QAM #90 tab 08/31/21 09/26/21 Rx simvastatin 80 mg tablet (Zocor) 80 mg PO HS #90 tab 08/31/21 09/26/21 Rx insulin glargine 100 unit/mL 60 unit SQ BID #11 vial 09/05/21 09/26/21 Rx subcutaneous solution (Lantus U-100 Insulin) Patient History Medical History (Updated 09/26/21 @ 23:56 by Destiny Garza MD) Acid reflux disease Anxiety Atrial fibrillation CAD (coronary artery disease) Chronic kidney disease, stage II (mild) Depression Diabetic nephropathy Diabetic peripheral neuropathy Diabetic retinopathy DM (diabetes mellitus), type 2 Hypercholesterolemia Hypertension Hyponatremia PAD (peripheral artery disease) Prostate CA Treated with surgery and then radiation in 2001 Stage 2 chronic kidney disease Type 2 diabetes mellitus with stage 2 chronic kidney disease and hypertension Uncontrolled type 2 diabetes mellitus with neurologic complication, with long- term current use of insulin Surgical History (Updated 09/26/21 @ 23:37 by Destiny Garza MD) History of angiography With right iliac stent placement History of appendectomy [place] [facility] [place] History of colonoscopy History of heart artery stent 1996--1 stent History of lumbar discectomy History of prostate biopsy malignant History of radical prostatectomy 2001 History of tooth extraction full upper denture History of wisdom tooth extraction S/P CABG x 3 d/t CAD 2006 [place] [facility] [place]follow[place] with Dr. Small Family History Father Myocardial infarction Mother Myocardial infarction Family history of diabetes mellitus Sister Family history of diabetes mellitus Other No family history of adverse response to anesthesia Prostate cancer Denies family history of Ovarian cancer Breast cancer Colorectal cancer Social History (Updated 09/26/21 @ 23:38 by Destiny Garza MD) Smoking Status: Former smoker Tobacco Type: Cigarettes Number of Years Since Quit: 21; Second Hand Exposure: No; Hx Alcohol Use: Yes Alcohol type: beer Alcohol Intake Frequency: 2-4 x/Month Hx Substance Use: No Preferred Language: Montenegrin Communication Ability: Effective Senior Quality Control Inspector Required: No Beliefs That Will Affect Care: None marital status: Current Living Situation: Spouse current occupational status: retired How many Children do You have: 2 Feels Safe at Home: Yes Childhood Exposure to Second-Hand Smoke: No caffeine: Yes Dental Care, Regularly: Yes Physical Activity Frequency: 1-2 Times per Week Seatbelt Use: always Sunscreen Use: No Assistive Devices: Cane Physical Exam Physical Exam: In general this is an obese white male in no acute distress. HEENT exam is negative. Neck is supple with full carotid up strokes. There are no carotid bruits. No JVD. There is no thyromegaly. Cardiovascular exam reveals a regular rhythm with a normal S1 and S2. No S3, S4, or murmurs are noted. Lungs no decreased breath sounds at the left base. Abdomen is obese without bruits. Extremities reveal intact radial artery pulse bilaterally. There is a paucity of lower extremity hair. There is trace pretibial edema Results & Data ([facility]) Vital Signs (Past 12 Hours) Vital Signs Temp Pulse Resp BP Pulse Ox 09/27/21 14:03 37.1 C 99 H 18 122/75 89 L 09/27/21 11:07 37.1 C 92 H 18 122/76 91 09/27/21 07:45 36.4 C L 89 18 132/77 92 09/27/21 07:16 115 H 18 92 Laboratory Results CBC notes hemoglobin 13.0, hematocrit 40.5, white count 11.8, platelet count [id number]. Electrolytes note a sodium of 134, potassium 4.5, chloride 99, bicarb 25, BUN 32, creatinine 1.2, glucose of 237. AST is elevated 61 as his the ALT at 92. Troponin I levels undetectable less than 0.015. BNP is elevated 1796. Diagnostic Findings Initial EKG notes atrial fibrillation with a controlled ventricular response. There is nonspecific T-wave abnormality. Echocardiogram notes normal left ventricular systolic function with ejection fraction of 60-65%. There was mild LVH and mild mitral regurgitation. Chest x-ray shows cardiomegaly and evidence of congestive failure and a left pleural effusion. CT scan of the chest notes a large left perihilar mass with a left pleural effusion and mass in the left apex measuring 2.8 cm in diameter. There are at least 5 pulmonary nodules on the right side. There is mediastinal lymphadenopathy. PG Care Time/CCT Total # of Minutes Spent Total Time Spent with Patient: Total time spent is greater than 50% in coordination of care (as documented) at patient's floor/unit and/or counseling patient: Coding Level of Care Code 07096 Initial Inpt Care Lvl 3 Diagnoses Atrial fibrillation I48.91 CAD (coronary artery disease) I25.10 Hypertension I10 Hypercholesterolemia E78.00 PAD (peripheral artery disease) I73.9
--- NOTE | 2021-09-27 18:08 | Hospitalist Progress Note ---
Date of Service September 27, 2021 Assessment & Plan (1) Pneumonia: Plan: Patient presents with shortness of breath, hypoxia, extensive pneumonia, likely postobstructive and masses in the left lung e with mediastinal lymphadenopathy preceded by a viral-like illness Bio fire negative, Covid-19 and influenza A/B all negative CT angiogram the chest negative for PE but with extensive masslike lesions, moderate pleural effusion with compressive atelectasis, and bulky mediastinal lymphadenopathy all suspicious for lung cancer with metastases This is most likely a postobstructive pneumonia Leukocytosis of 13, LFTs mildly elevated which also could be consistent with vi ral illness Procalcitonin is negative, but will treat with antibiotics until infection is ruled out. IV ceftriaxone and azithromycin -Supplemental O2 to keep pulse ox greater than 90% patient currently on 4 L -Scheduled DuoNebs ordered given ongoing significant wheezing and hypoxia in the setting of most likely underlying COPD with extensive smoking history -Consult pulmonology status post thoracentesis -Follow-up pleural fluid studies and cytology to look for malignancy Pulmonary pathology is concerning for malignancy (2) Pulmonary nodules/lesions, multiple: Plan: As above Malignancy highly suspected Appreciate pulmonology consultation (3) Pleural effusion: Plan: As above, thoracentesis to be performed after admission Most likely malignant effusion but could also be parapneumonic, -Follow-up pleural fluid studies after thoracentesis -Echocardiogram shows preserved systolic function -Give 1 dose Lasix 20 mg IV x1 (4) Hypoxia: Plan: Acute hypoxic respiratory failure secondary to postobstructive pneumonia with likely malignancysupplemental oxygen (5) Atrial fibrillation: Plan: New onset atrial fibrillation. He reports he had some lone atrial fibrillation in the immediate postoperative time after his CABG but none since then Rates are mildly elevated in the low 100s but he is also acutely ill with pneumonia as above Increased home metoprolol to 100 mg p.o. twice daily for improved rate control Will need to start on anticoagulation-discussed Eliquis with patient he is agreeable-we will hold off until after thoracentesis and to make sure no other procedures needed with pulmonology If starts on Eliquis, would discontinue likely the aspirin and continue only Plavix and Eliquis in the setting of severe PAD and history of CABG Cardiology agrees with rate control, echocardiogram is without significant change consideration of Lovenox for DVT prevention also with malignancy if proves to be malignancy. (6) Hypertension: Plan: Blood pressures are controlled Continue home amlodipine, losartan, and increase metoprolol to 100 mg p.o. twice daily for better rate control with A. fib (7) Stage 2 chronic kidney disease: Plan: CKD stage II, follows with nephrology, with proteinuria Secondary to hypertension and diabetes Continue losartan -Avoid nephrotoxins -renally dose meds when appropriate (8) PAD (peripheral artery disease): Plan: With history of right common iliac artery stent and extensive disease in the right lower extremity with claudication which is now improved Continue dual antiplatelet therapy for now, but would consider removing aspirin if anticoagulation is begun for DVT prevention Continue simvastatin Follows with vascular surgery at [place] (9) CAD (coronary artery disease): Plan: Status post CABG No acute issues Continue dual antiplatelet therapy, metoprolol, statin Follows with cardiology at [facility] Dr. Small has reviewed (10) Acid reflux disease: Plan: Patient recently started on Pepcid for heartburn last week which is now resolved Continue Pepcid (11) Hypercholesterolemia: Plan: Continue statin (12) Uncontrolled type 2 diabetes mellitus with neurologic complication, with long-term current use of insulin: Plan: With hyperglycemia likely secondary to steroids Continue home Lantus 60 units twice daily Add NovoLog supplemental insulin and titrate up as needed for hyperglycemia 8.5 hemoglobin A1c Hold home Jardiance (13) Depression: Plan: Continue home trazodone (14) Transaminitis: Plan: Mild elevation of AST and ALT No abdominal pain and bilirubin is normal Could be secondary to hepatic congestion perhaps from heart failure? Or viral illness? Follow LFTs in the morning Plan: Prophylaxis-MANE hose for now, but plan to start Eliquis in near future for atrial fibrillation Full code Admission and Anticipated Discharge Date Admission Date: September 26, 2021 Subjective Patient says he feels an improved since starting antibiotics and having a thoracentesis done. Unfortunately there is a large concern versus malignant. He did some issues with atrial fibrillation which has been rate controlled cardiology has seen and wishes for medical management with consideration of anticoagulation in the future. Once we know his malignant procedures are done we may consider an agent but could also consider Lovenox as DVT prevention in a patient with malignancy. Review of Systems Review of Systems: moderate distress and fatigue no headache, no visual changes no speech or swallowing issues no chest pain, pressure or palpitations persistent shortness of breath,non productive cough no abdominal pain, nausea or vomiting, diarrhea or constipation no dysuria, hematuria or frequency no focal joint pain or swelling no back pain, CVA tenderness or radicular pain no bruising, bleeding or rashes no focal signs of weakness or numbness or altered sensation no complaints of anxiety or depression.. Physical Exam Physical Exam: The patient appeared well nourished and normally developed. Vital signs as documented. Head exam is normocephalic atraumatic Neck is without JVD, thyromegaly, or carotid bruits. Lungs are absent breath sounds at the left base some rales just above bases at the right also include rales Cardiac exam, Rhythm is regular.. No murmurs, rubs or gallops. Abdominal exam reveals normal bowel sounds, soft non tender, no masses Extremities are nonedematous and both pedal pulses are present Neurologic exam is alert and oriented, no focal loss of strength or sensation Skin is without bruises or rashes Psychologically is without concerns for anxiety or depression.. Results & Data Results & Data ([facility]) Vital Signs (Past 12 Hours) Vital Signs Temp Pulse Resp BP Pulse Ox 09/27/21 16:50 174/84 H 09/27/21 14:03 98.8 F 99 H 18 122/75 89 L 09/27/21 11:07 98.8 F 92 H 18 122/76 91 09/27/21 07:45 97.5 F L 89 18 132/77 92 09/27/21 07:16 115 H 18 92 PG Care Time/CCT Total # of Minutes Spent Total Time Spent with Patient: Total time spent is greater than 50% in coordination of care (as documented) at patient's floor/unit and/or counseling patient: Coding Level of Care Code 01840 Subseq Hosp Care Lvl 3 Diagnoses Pneumonia J18.9 Pulmonary nodules/lesions, multiple R91.8 Pleural effusion J90 Hypoxia R09.02 Atrial fibrillation I48.91 Hypertension I10 Stage 2 chronic kidney disease N18.2 PAD (peripheral artery disease) I73.9 CAD (coronary artery disease) I25.10 Acid reflux disease K21.9 Hypercholesterolemia E78.00 Uncontrolled type 2 diabetes mellitus with neurologic complication, with long- term current use of insulin E11.49; E11.65; Z79.4 Depression F32.9 Transaminitis R74.01
[2021-09-27] MEDS: traZODone HCL 100 MG TAB PO SCH (20:46)
[2021-09-27] MEDS: SIMVASTATIN 80 MG TAB PO SCH (20:47)
[2021-09-27] MEDS ORDERED: INSULIN GLARGINE SOLOSTAR 100 UNITS/ML 3 ML PEN SC ONE (21:00)
[2021-09-27 23:22] LABS: Appearance Urine Clear (Clear); Bacteria Urine Automated Negative (Negative); Bilirubin Urine Negative (Negative); Blood Urine 1+ (Negative); Color Urine Yellow; Epithelial Cell Urine Auto 20-30 /lpf (0-5); Glucose Urine UA 2+ (Negative); Ketones Urine Negative (Negative); Leukocyte Esterase Urine Negative (Negative); Nitrite Urine Negative (Negative); Protein Urine 1+ (Negative); Specific Gravity Urine 1.031 (1.000-1.030); Urobilinogen Urine Negative (Negative)
[2021-09-28] MEDS: CARBOHYDRATES FOR HYPOGLYCEMIA PO PRN ×3 (02:00→07:35)
[2021-09-28] MEDS ORDERED: INSULIN ASPART 100 UNITS/ML 3 ML PEN SC ONE (02:00)
[2021-09-28] MEDS: CYANOCOBALAMIN 500 MCG TABLET (VITAMIN B-12) PO SCH (08:54)
[2021-09-28] MEDS: LOSARTAN POTASSIUM 50 MG TAB PO SCH (08:54)
[2021-09-28] MEDS: CLOPIDOGREL BISULFATE 75 MG TAB PO SCH (08:54)
[2021-09-28] MEDS: FAMOTIDINE 10 MG TABLET PO SCH (08:54)
[2021-09-28] MEDS: METOPROLOL TARTRATE 100 MG TAB PO SCH ×2 (08:54→20:53)
[2021-09-28] MEDS: ASPIRIN 325 MG ECTAB PO SCH (08:55)
[2021-09-28] MEDS: amLODIPine BESYLATE 5 MG TAB PO SCH (08:55)
[2021-09-28] MEDS: FLUoxetine HCL 20 MG CAP PO SCH (08:56)
[2021-09-28] MEDS: INSULIN ASPART 100 UNITS/ML 3 ML PEN SC SCH ×5 (09:00→20:53)
--- NOTE | 2021-09-28 09:11 | Cardiology Progress Note ---
Date of Service September 28, 2021 Assessment & Plan (1) Atrial fibrillation: Plan: -recent onset likely related to his acute illness. -continue metoprolol tartrate for rate control. -would can consider addition of digoxin 0.25 mg IV x2 today, and start 0.25 mg p.o. daily. -will eventually need a novel agent for long-term anticoagulation. (2) CAD (coronary artery disease): Plan: -history of 3 vessel CABG in 2005. -quiescent on medical management. (3) Hypertension: Plan: -adequate control on current regimen. (4) Hypercholesterolemia: Plan: -continue simvastatin. (5) PAD (peripheral artery disease): Plan: -total occlusion of the right SFA -angioplasty of the right iliac artery, January 2021 -still experiences limiting claudication. Admission and Anticipated Discharge Date Admission Date: September 26, 2021 Subjective The patient is resting comfortably in bed without complaints of chest pain, dyspnea, palpitations. He is anxiously awaiting the results of his pleural fluid cytology. Physical Exam Physical Exam: In general this is an obese white male in no acute distress. HEENT exam is negative. Neck is supple with full carotid up strokes. There are no carotid bruits. No JVD. There is no thyromegaly. Cardiovascular exam reveals a regular rhythm with a normal S1 and S2. No S3, S4, or murmurs are noted. Lungs no decreased breath sounds at the left base. Abdomen is obese without bruits. Extremities reveal intact radial artery pulse bilaterally. There is a paucity of lower extremity hair. There is trace pretibial edema Results & Data ([facility]) Vital Signs (Past 12 Hours) Vital Signs Temp Pulse Resp BP Pulse Ox 09/28/21 07:52 37.1 C 107 H 18 130/66 94 09/28/21 03:23 36.7 C 18 L 20 122/78 90 09/27/21 23:41 36.5 C 81 22 118/68 93 Diagnostic Findings monitoring analyst notes atrial fibrillation with a ventricular response varying 80-110 beats per minute. PG Care Time/CCT Total # of Minutes Spent Total Time Spent with Patient: Total time spent is greater than 50% in coordination of care (as documented) at patient's floor/unit and/or counseling patient: Coding Level of Care Code 48583 Subseq Hosp Care Lvl 3 Diagnoses Atrial fibrillation I48.91 CAD (coronary artery disease) I25.10 Hypertension I10 Hypercholesterolemia E78.00 PAD (peripheral artery disease) I73.9
[2021-09-28] MEDS: AZITHROMYCIN 250 MG in DEXTROSE 5% 250 ML IV SCH (09:15)
[2021-09-28] MEDS ORDERED: INSULIN GLARGINE SOLOSTAR 100 UNITS/ML 3 ML PEN SC STA (11:55)
[2021-09-28] MEDS: cefTRIAXone SODIUM 2,000 MG in DEXTROSE 5% 50 ML IV SCH (13:29)
--- NOTE | 2021-09-28 14:23 | Pharmacy Report ---
Pharmacy Glycemic Short Note 2 - Date of Service September 28, 2021 - Glycemic Short BSG Results (Last 24 hours): 09/27/21 09/27/21 09/28/21 16:21 20:43 01:57 POC Glucose 110 H 81 62 L* 09/28/21 09/28/21 09/28/21 01:59 02:14 02:28 POC Glucose 64 L* 67 L* 94 09/28/21 09/28/21 09/28/21 07:15 07:53 11:44 POC Glucose 63 L* 83 203 H OUTPATIENT ANTIDIABETIC REGIMEN: * HbA1c = 8.5% on 09/27/21 * Jardiance 10 mg PO QAM * Lantus 60 units SQ BID * Regular Insulin 35 units SQ TIDM * Metformin 850 mg PO TIDM ASSESSMENT: 09/28: * Patient received total 118 units of insulin yesterday; 80 units basal + 38 units bolus. * Pt was hypoglycemic overnight last night and this AM fasting BSG = 63 mg/dl today. Basal dose held this AM. Reduced dose given at noon. * Lantus dose scale at HS ordered based on BSG. * Pre-lunch BSG = 203 mg/dl. Novolog CF and CR tightened with lunch. 09/27/21: * 75 y/o M admitted for Pneumonia and A.fib yesterday. Pt with history of Type 2 diabetes managed at home on several anti-diabetic meds as noted above. * Will hold Jardiance, Metformin and Regular insulin SQ and continue patient on basal Lantus as ordered yesterday and Novolog ACHS. * Lantus 60 units SQ BID resumed last night (home dose) but fasting BSG was 227 mg/dl this AM. * Pre-lunch BSG trended up to 409 mg/dl today. Novolog parameters tightened based on wt and stress of 3 and also taking into consideration that patient was on a significant dose of regular insulin TID at home. * If BSG continue to trend up, then plan on tightening Novolog parameters further this evening. PLAN FOR INPATIENT GLYCEMIC CONTROL: * Hold outpatient oral diabetes medications * Basal insulin * Lantus 25 units at noon * Lantus dose 20-30 units ordered at HS based on BSG. * Bolus insulin: tightened CF/CR * NovoLog per scale ACHS or Q6hrs while NPO * Goal Range: Low 110 mg/dL - High 140 mg/dL * Correction Factor: 15 mg/dL/unit * Nutritional / Prandial insulin per carb ratio of 1 unit per 8 grams CHO consumed PLAN FOR DISCHARGE: * TBD
[2021-09-28] MEDS ORDERED: DIGOXIN 250 MCG in SYRINGE 9 ML IV STA (19:03)
--- NOTE | 2021-09-28 19:10 | Hospitalist Progress Note ---
Date of Service September 28, 2021 Assessment & Plan (1) Pneumonia: Plan: Patient presents with shortness of breath, hypoxia, postobstructive pneuonia with masses in the left lung plus mediastinal lymphadenopathy preceded by a viral-like illness Bio fire negative, Covid-19 and influenza A/B all negative CT angiogram the chest negative for PE but with extensive masslike lesions, moderate pleural effusion with compressive atelectasis, and bulky mediastinal lymphadenopathy all suspicious for lung cancer with metastases IV ceftriaxone and azithromycin -Supplemental O2 to keep pulse ox greater than 90% patient currently on 4 L likely underlying COPD with extensive smoking history -Consult pulmonology status post thoracentesis Pulmonary pathology is concerning for malignancy however exact cell type is not likley (2) Pulmonary nodules/lesions, multiple: Plan: As above Malignancy highly suspected Appreciate pulmonology consultation, recommend coordinate with rad oncology and oncology (3) Pleural effusion: Plan: Most likely malignant effusion EF shows preserved EF does not appear effusion is from cardiogenic source -Give 1 dose Lasix 20 mg IV x1 (4) Hypoxia: Plan: Acute hypoxic respiratory failure secondary to postobstructive pneumonia with likely malignancysupplemental oxygen (5) Atrial fibrillation: Plan: New onset atrial fibrillation. He reports he had some lone atrial fibrillation in the immediate postoperative time after his CABG but none since then Increased home metoprolol to 100 mg p.o. twice daily for improved rate control, cardiology recommended digoxin, will not start Noac until risk of additional procedure such as bronchoscopy is ruled out Will need to start on anticoagulation-discussed Eliquis with patient he is agreeable-we will hold off until after thoracentesis and to make sure no other procedures needed with pulmonology If starts on Eliquis, would discontinue likely the aspirin and continue only Plavix and Eliquis in the setting of severe PAD and history of CABG Cardiology agrees with rate control, echocardiogram is without significant change consideration of Lovenox for DVT prevention also with malignancy if proves to be malignancy. (6) Hypertension: Plan: Blood pressures are controlled Continue home amlodipine, losartan, and increase metoprolol to 100 mg p.o. twice daily for better rate control with A. fib (7) Stage 2 chronic kidney disease: Plan: CKD stage II, follows with nephrology, with proteinuria Secondary to hypertension and diabetes Continue losartan -Avoid nephrotoxins -renally dose meds when appropriate (8) PAD (peripheral artery disease): Plan: With history of right common iliac artery stent and extensive disease in the right lower extremity with claudication which is now improved Continue dual antiplatelet therapy for now, but would consider removing aspirin if anticoagulation is begun for DVT prevention Continue simvastatin Follows with vascular surgery at [place] (9) CAD (coronary artery disease): Plan: Status post CABG No acute issues Continue dual antiplatelet therapy, metoprolol, statin Follows with cardiology at [facility] Dr. Small has reviewed (10) Acid reflux disease: Plan: Patient recently started on Pepcid for heartburn last week which is now resolved Continue Pepcid (11) Hypercholesterolemia: Plan: Continue statin (12) Uncontrolled type 2 diabetes mellitus with neurologic complication, with long-term current use of insulin: Plan: With hyperglycemia likely secondary to steroids Continue home Lantus 60 units twice daily Add NovoLog supplemental insulin and titrate up as needed for hyperglycemia 8.5 hemoglobin A1c Hold home Jardiance (13) Depression: Plan: Continue home trazodone (14) Transaminitis: Plan: mild and improving Plan: Prophylaxis-MANE hose for now, but plan to start lovenox/ Eliquis in near future for atrial fibrillation Full code Admission and Anticipated Discharge Date Admission Date: September 26, 2021 Subjective Patient feels improved still with oxygen requirement awaiting results of pathology however the final pathological identification could not be had possibly adenocarcinoma questionably of breast origin final pathology will not be able to be completed in short order as it needs to be reevaluated. Discussion with pulmonary medicine by myself suggest involvement of radiation oncology and eventual outpatient involvement with oncology. Involvement radiation oncology could be to radiate areas that seem to be encroaching his pulmonary artery which could have an impact in his feeling of being short of breath Review of Systems Review of Systems: mild respiratory distress and fatigue no headache, no visual changes no speech or swallowing issues no chest pain, pressure or palpitations persistent shortness of breath,non productive cough no abdominal pain, nausea or vomiting, diarrhea or constipation no dysuria, hematuria or frequency no focal joint pain or swelling no back pain, CVA tenderness or radicular pain no bruising, bleeding or rashes no focal signs of weakness or numbness or altered sensation no complaints of anxiety or depression.. Physical Exam Physical Exam: The patient appeared well nourished and normally developed. Vital signs as documented. Head exam is normocephalic atraumatic Neck is without JVD, thyromegaly, or carotid bruits. Lungs are absent breath sounds at the left base some rales just above bases at the right also include rales Cardiac exam, Rhythm is regular.. No murmurs, rubs or gallops. Abdominal exam reveals normal bowel sounds, soft non tender, no masses Extremities are nonedematous and both pedal pulses are present Neurologic exam is alert and oriented, no focal loss of strength or sensation Skin is without bruises or rashes Psychologically is without concerns for anxiety or depression.. Results & Data Results & Data ([facility]) Vital Signs (Past 12 Hours) Vital Signs Temp Pulse Pulse Resp BP Pulse Ox 09/28/21 15:53 85 09/28/21 15:49 97.5 F L 92 H 18 131/82 90 09/28/21 12:23 98.1 F 84 18 119/73 92 09/28/21 07:52 98.8 F 107 H 18 130/66 94 PG Care Time/CCT Total # of Minutes Spent Total Time Spent with Patient: Total time spent is greater than 50% in coordination of care (as documented) at patient's floor/unit and/or counseling patient: Coding Level of Care Code 20852 Subseq Hosp Care Lvl 3 Diagnoses Pneumonia J18.9 Pulmonary nodules/lesions, multiple R91.8 Pleural effusion J90 Hypoxia R09.02 Atrial fibrillation I48.91 Hypertension I10 Stage 2 chronic kidney disease N18.2 PAD (peripheral artery disease) I73.9 CAD (coronary artery disease) I25.10 Acid reflux disease K21.9 Hypercholesterolemia E78.00 Uncontrolled type 2 diabetes mellitus with neurologic complication, with long- term current use of insulin E11.49; E11.65; Z79.4 Depression F32.9 Transaminitis R74.01
[2021-09-28] MEDS: traZODone HCL 100 MG TAB PO SCH (20:53)
[2021-09-28] MEDS: SIMVASTATIN 80 MG TAB PO SCH (20:53)
[2021-09-28] MEDS ORDERED: INSULIN GLARGINE SOLOSTAR 100 UNITS/ML 3 ML PEN SC SCH (21:00)
[2021-09-28] MEDS ORDERED: GADOBUTROL 65ML VIAL IV ONE (22:07)
--- NOTE | 2021-09-28 23:01 | Pulmonology Progress Note ---
Date of Service September 28, 2021 Assessment & Plan (1) Pneumonia: (2) Pleural effusion: (3) Pulmonary nodules/lesions, multiple: Plan: Attending: Dr. Man Impression: This is a 75-year-old male with a 50+ pack year smoking history. He presents with progressive shortness of breath. He is Covid negative. He has abnormal CT scan of the chest including large left pleural effusion and multiple pulmonary nodules bilaterally. Pleural fluid collected was centesis of the left side. Atypical cells present. Cellblock pending. Expect stains back tomorrow afternoon. Recommendations: 1. Left pleural effusion: * Patient has CAD and PAD and consequently is on clopidogrel (Plavix) * Unable to safely stop clopidogrel due to severe vascular disease * Centesis done at the bedside with 19-gauge centesis needle under ultrasound guidance 09/26/2021 * 30 mL of fluid was obtained and sent to the lab to look for cytology and pleural pH. Fluid does not appear to be infected as glucose is high. Pleural pH not reported. * Pathology appears to be malignant. Unable to differentiate source. Somewhat consistent with breast cancer. Patient with no history of breast cancer. No first-degree history of breast cancer in his family. * Discussed with pathology. Will await further staining on cellblock. * Continue to monitor oxygenation. Unclear if patient has COPD. [id number] history of smoking. Keep SaO2 in the low 90s. * Diminished breath sounds throughout the left lung goncalves. * Patient may benefit from a pleurex catheter but this would requirie hold plavix for at least 5 days. 2. Multiple pulmonary nodules: * 2.8 cm nodule in the left upper lobe apex. * 5 pulmonary nodules on the right side * CT scan appears to show lymphatic spread of metastatic disease * Bulky mediastinal lymphadenopathy * Pleural fluid sent to lab for analysis of cytology. Appears malignant but awaiting final stains with cell block * Currently not safe to do bronchoscopy with EBUS but this would be preferred for diagnostic tissue * If malignant fluid returns from pleural tap, suggest oncology consult to determine if we have enough tissue from fluid to begin treatment. 3. Presumed malignancy: * With patient's extensive smoking history and presentation of CT scan, this appears consistent with small cell carcinoma * I discussed this with the patient. He is aware that this is malignant but still awaiting type. * Will await results from pleural fluid obtained. Discussed with Dr. Anderson in pathology today. Await further results from [employer] * Recommend consult with radiation oncology as there is compression of the pulmonary artery. Patient will dose likely benefit from radiation even though we do not have complete pathology returned * Further diagnosis should be made outpatient if further tissue is required. 4. Pneumonia: * Blood cultures collected 09/26/2021 with no growth to date. * Currently receiving ceftriaxone and azithromycin IV. Received IV Zosyn in the emergency department. Day #3 IV antibiotics * Procalcitonin negative at 0.08 * WBC 13.48 on admission. Now trending downward * Afebrile * No eosinophils Thank you for including us in the care of this patient. Please refer to Dr. Man's addendum for further recommendations. We will sign off at this time. We will be glad to see the patient as an outpatient should that be recommended by oncology. Admission and Anticipated Discharge Date Admission Date: September 26, 2021 Subjective Attending: Dr. Man Patient seen and examined in bed 2411. No acute complaints. He is oxygenating well with supplemental oxygen. No significant change in status. Awaiting pathology from centesis performed on Saturday. Review of Systems Review of Systems: All systems reviewed & are unremarkable except as noted in Subjective Physical Exam Physical Exam: GENERAL : No acute distress. Patient is extremely anxious about pathology results. EYES: No icterus, gaze conjugate NOSE: No evidence of epistaxis MOUTH: No lesions or candidiasis NECK: Supple LUNGS: Decreased breath sounds on the left. No bronchospasm or rales. HEART: Regular, rate controlled ABDOMEN: Soft, NT, ND, BS Present. No pain to palpation. EXTREMITIES: No LE edema, pedal pulses intact NEURO: A&OX3 Results & Data Results & Data ([facility]) Vital Signs (Past 12 Hours) Vital Signs Temp Pulse Pulse Resp BP Pulse Ox 09/28/21 19:44 36.6 C 103 H 18 144/84 H 94 09/28/21 15:53 85 09/28/21 15:49 36.4 C L 92 H 18 131/82 90 09/28/21 12:23 36.7 C 84 18 119/73 92 Laboratory Results 09/27/21 07:12 09/27/21 07:12 PG Care Time/CCT Total # of Minutes Spent Total Time Spent with Patient: Total time spent is greater than 50% in coordination of care (as documented) at patient's floor/unit and/or counseling patient: 45 minutes Coding Level of Care Code 05017 Subseq Hosp Care Lvl 2 Diagnoses Pneumonia J18.9 Pleural effusion J90 Pulmonary nodules/lesions, multiple R91.8 Time Spent (min) 45
[2021-09-29] MEDS: INSULIN ASPART 100 UNITS/ML 3 ML PEN SC SCH ×2 (08:12→12:13)
[2021-09-29] MEDS: amLODIPine BESYLATE 5 MG TAB PO SCH (08:16)
[2021-09-29] MEDS: CLOPIDOGREL BISULFATE 75 MG TAB PO SCH (08:18)
[2021-09-29] MEDS: ASPIRIN 325 MG ECTAB PO SCH (08:18)
[2021-09-29] MEDS: LOSARTAN POTASSIUM 50 MG TAB PO SCH (08:19)
[2021-09-29] MEDS: FAMOTIDINE 10 MG TABLET PO SCH (08:19)
[2021-09-29] MEDS: CYANOCOBALAMIN 500 MCG TABLET (VITAMIN B-12) PO SCH (08:19)
[2021-09-29] MEDS: FLUoxetine HCL 20 MG CAP PO SCH (08:19)
[2021-09-29] MEDS: METOPROLOL TARTRATE 100 MG TAB PO SCH (08:20)
--- NOTE | 2021-09-29 08:22 | Magnetic Resonance Report ---
MRI OF THE BRAIN WITHOUT AND WITH IV CONTRAST CLINICAL HISTORY: Evaluate for metastatic disease. Possible lung cancer. COMPARISON STUDY: No previous studies for comparison. TECHNIQUE: Utilizing a 1.5 Izzy magnet and dedicated coil, multiplanar, multiecho imaging of the br ain was performed pre and postcontrast administration. IV administration of 11 mL [address] contra st was uneventful. Thin cut T1 post contrast imaging was performed. FINDINGS: There are no foci of restricted diffusion to suggest acute infarct. No acute intracranial h emorrhage, midline shift or mass effect is present. Ventricular system is unremarkable. Basal cistern s are patent. There are no extra-axial collections. Flow-voids for the major intracranial vessels are present. No intracranial mass or pathologic enhancement is identified. Exam is mildly compromised by motion artifact although is diagnostic. White matter T2 intense foci suggest moderate small vessel d isease. Calvarial signal is normal. Orbits are unremarkable. There is no mastoid fluid. There is mild atrophy. IMPRESSION: No evidence of metastatic disease. ACT 112: Negative or not required by law. Electronically signed by: Az Cortes M.D. 09/29/2021 8:21 AM
[2021-09-29] MEDS: AZITHROMYCIN 250 MG in DEXTROSE 5% 250 ML IV SCH (08:25)
[2021-09-29] MEDS ORDERED: INSULIN GLARGINE SOLOSTAR 100 UNITS/ML 3 ML PEN SC SCH (09:00)
--- NOTE | 2021-09-29 09:31 | Radiation OncologyConsultation ---
Date of Consultation September 29, 2021 Assessment & Plan (1) Pleural effusion: (2) Pulmonary nodules/lesions, multiple: Assessment: Mr. Sky is a 75-year-old gentleman who presents with a history of prostate cancer status post radical prostatectomy in 2001 followed by salvage radiation therapy in 2006 who is currently on Lupron for persistent disease underneath the supervision of Dr. Jagdeep Damon. The patient more recently presented with increased shortness of breath and was admitted to the hospital on 09/26/2021. Patient had imaging studies which did reveal multiple pulmonary nodules and large left perihilar mass with some narrowing of the left-sided bronchi leading to some atelectasis. The patient has been evaluated by pulmonary medicine and they did perform a thoracentesis at bedside in the preliminary diagnosis is small cell carcinoma however final pathology has not been determined and the results are pending. I have been asked to evaluate the patient regarding the role of radiation therapy. Plan: 1. No acute role for radiation therapy as patient is stable and pathology results are pending. 2. Follow-up pathology results in the outpatient setting. Formulate plan in coordination with medical oncology. Palliative radiation therapy to left hilar mass should be considered to prevent further obstruction involving the left lung. 3. Further diagnostic sampling may be required if not enough tissue to make final diagnosis. 4. All other medical management as per primary team and pulmonary medicine. 5. Continue androgen deprivation therapy under the supervision of medical oncology 6. Patient and family encouraged to call us with any further questions or concerns. History of Present Illness Attending Physician: Elbert Carrera MD History of Present Illness 02/15/2007 - 04/14/2007. Salvage radiation therapy following radical prostatectomy in 2001. 7100 cGy. Treatment completed at [facility]. 03/2015 to 08/2016. Lupron for rising PSA. 06/07/2020. PSA. 1.480. 02/2021. Patient restarted on Lupron due to rising PSA. 06/09/2021. Medical oncology follow-up with Dr. Jagdeep Damon. Continue Lupron every 3 months. 09/25/2021. PSA. 1.300. 09/26/2021. Patient presents to emergency room with complaints of shortness of breath. Patient admitted to hospital for further work-up and evaluation. 09/26/2021. Chest x-ray. IMPRESSION: 1. Cardiomegaly with evidence of congestive failure. 2. There are airspace opacities throughout both lungs, asymmetrically greater/confluent on the left. Differential considerations include pulmonary edema and/or multifocal pneumonia. Clinical correlation will be essential. 3. Layering left pleural effusion. 09/26/2021. Chest CTA. IMPRESSION: 1. Motion compromised examination. 2. There is no evidence of central pulmonary embolus in the main, lobar, or proximal segmental pulmonary arteries. Evaluation of the segmental and subsegmental branches is severely degraded by motion artifact. 3. Suspect a large left perihilar mass lesions associated narrowing of the left-sided bronchi and branches of the left pulmonary artery. 4. Airspace consolidation is seen throughout the left upper lobe. Correlate clinically for evidence of pneumonia. 5. There is a moderate left pleural effusion with atelectasis of the left lower lung. This may be malignant. 6. There is a 2.8 cm lobulated pulmonary nodule at the left apex. Additionally, findings suggests lymphangitic spread of tumor in the left upper lobe. 7. There is bulky mediastinal lymphadenopathy. 8. There are least 5 pulmonary nodules scattered throughout the right lung which are concerning for metastatic disease. 9. Cardiomegaly and emphysema. 10. Additional findings as above. 09/26/2021. Thoracentesis with cytology performed by pulmonary medicine Preliminary report suggests atypical cells potentially suggestive of small cell carcinoma. 09/28/2021. MRI brain. IMPRESSION: No evidence of metastatic disease. Allergies Allergy/AdvReac Type Severity Reaction Status Date / Time Sulfa (Sulfonamide Allergy Mild Rash Verified 09/26/21 13:05 Antibiotics) sulfamethoxazole Allergy Mild Rash Verified 09/26/21 13:05 [From Bactrim] trimethoprim [From Bactrim] Allergy Mild Rash Verified 09/26/21 13:05 codeine AdvReac Mild Nausea/"wild Verified 09/26/21 13:05 dreams" Home Medications Medication Instructions Recorded Confirmed Type aspirin 325 mg tablet (Filiberto 325 mg PO QAM 05/04/19 09/26/21 History Aspirin) cyanocobalamin (vitamin B-12) 1,000 mcg PO QAM 08/09/20 09/26/21 History 1,000 mcg tablet (Vitamin B-12) insulin syringe-needle U-100 0.5 #600 ea 12/14/20 11/04/21 Rx mL 31 gauge x 5/16" (BD Insulin Syringe Ultra-Fine) metformin 850 mg tablet 850 mg PO TID #270 tab 10/19/20 09/26/21 Rx trazodone 100 mg tablet 100 mg PO HS #30 tab 02/13/21 09/26/21 Rx insulin regular human 100 unit/mL 35 unit SQ TID 30 Days #40 ml 03/24/21 09/26/21 Rx injection solution (Novolin R Regular U-100 Insulin) amlodipine 10 mg tablet (Norvasc) 10 mg PO QAM 07/28/21 09/26/21 History empagliflozin 10 mg tablet 10 mg PO QAM 07/28/21 09/26/21 History (Jardiance) famotidine 10 mg tablet (Acid 10 mg PO QAM 07/28/21 09/26/21 History Voltage Tester (famotidine)) fluoxetine 20 mg capsule (Prozac) 20 mg PO QAM 07/28/21 09/26/21 History losartan 100 mg tablet (Cozaar) 100 mg PO QAM 07/28/21 09/26/21 History metoprolol tartrate 50 mg tablet 75 mg PO BID 07/28/21 09/26/21 History (Lopressor) clopidogrel 75 mg tablet (Plavix) 75 mg PO QAM #90 tab 08/31/21 09/26/21 Rx simvastatin 80 mg tablet (Zocor) 80 mg PO HS #90 tab 08/31/21 09/26/21 Rx insulin glargine 100 unit/mL 60 unit SQ BID #11 vial 09/05/21 09/26/21 Rx subcutaneous solution (Lantus U-100 Insulin) amoxicillin 875 mg-potassium 1 tab PO BID #20 tab 09/29/21 Rx clavulanate 125 mg tablet (Augmentin) digoxin 250 mcg (0.25 mg) tablet 250 mcg PO DAILY@1600 #30 tab 09/29/21 Rx metoprolol tartrate 100 mg tablet 100 mg PO BID #60 tab 09/29/21 Rx Patient History Medical History (Updated 09/26/21 @ 23:56 by Destiny Garza MD) Acid reflux disease Anxiety Atrial fibrillation CAD (coronary artery disease) Chronic kidney disease, stage II (mild) Depression Diabetic nephropathy Diabetic peripheral neuropathy Diabetic retinopathy DM (diabetes mellitus), type 2 Hypercholesterolemia Hypertension Hyponatremia PAD (peripheral artery disease) Prostate CA Treated with surgery and then radiation in 2001 Stage 2 chronic kidney disease Type 2 diabetes mellitus with stage 2 chronic kidney disease and hypertension Uncontrolled type 2 diabetes mellitus with neurologic complication, with long- term current use of insulin Surgical History (Updated 09/26/21 @ 23:37 by Destiny Garza MD) History of angiography With right iliac stent placement History of appendectomy History of cardiac cath 1996 @ [facility] [place] with 1 stent placed History of colonoscopy History of heart artery stent 1996--1 stent History of lumbar discectomy History of prostate biopsy malignant History of radical prostatectomy 2001 History of tooth extraction full upper denture History of wisdom tooth extraction S/P CABG x 3 d/t CAD 2006 @ [facility] [place]--follows with Dr. Small Family History Father Myocardial infarction Mother Myocardial infarction Family history of diabetes mellitus Sister Family history of diabetes mellitus Other No family history of adverse response to anesthesia Prostate cancer Denies family history of Ovarian cancer Breast cancer Colorectal cancer Social History (Updated 09/26/21 @ 23:38 by Destiny Garza MD) Smoking Status: Former smoker Tobacco Type: Cigarettes Number of Years Since Quit: 21; Second Hand Exposure: No; Hx Alcohol Use: Yes Alcohol type: beer Alcohol Intake Frequency: 2-4 x/Month Hx Substance Use: No Preferred Language: Mohawk Communication Ability: Effective Steam Roller Operator Required: No Beliefs That Will Affect Care: None marital status: Current Living Situation: Spouse current occupational status: retired How many Children do You have: 2 Feels Safe at Home: Yes Childhood Exposure to Second-Hand Smoke: No caffeine: Yes Dental Care, Regularly: Yes Physical Activity Frequency: 1-2 Times per Week Seatbelt Use: always Sunscreen Use: No Assistive Devices: Cane, Denture - Upper, Glasses and Oxygen - Continuous Review of Systems Review of Systems: Patient continues to note some shortness of breath at rest. However he states it is improved. Physical Exam Constitutional: WD/WN, vitals as above Psychiatric: A+Ox3, euthymic affect
--- NOTE | 2021-09-29 10:50 | Cardiology Progress Note ---
Date of Service September 29, 2021 Assessment & Plan (1) Atrial fibrillation: Plan: -likely related to his acute illness. -fortunately, he has converted to sinus rhythm. -continue metoprolol tartrate and digoxin for rate control. -will eventually need a novel agent for long-term anticoagulation. (2) CAD (coronary artery disease): Plan: -history of 3 vessel CABG in 2005. -quiescent on medical management. (3) Hypertension: Plan: -adequate control on current regimen. (4) Hypercholesterolemia: Plan: -continue simvastatin. (5) PAD (peripheral artery disease): Plan: -total occlusion of the right SFA -angioplasty of the right iliac artery, January 2021 -experiences limiting claudication. Admission and Anticipated Discharge Date Admission Date: September 26, 2021 Subjective The patient is resting comfortably in bed without complaints of chest pain, dyspnea, or palpitations. He is anxious for hospital discharge. Physical Exam Physical Exam: In general this is an obese white male in no acute distress. HEENT exam is negative. Neck is supple with full carotid up strokes. There are no carotid bruits. No JVD. There is no thyromegaly. Cardiovascular exam reveals a regular rhythm with a normal S1 and S2. No S3, S4, or murmurs are noted. Lungs note decreased breath sounds at the left base. Abdomen is obese without bruits. Extremities reveal intact radial artery pulse bilaterally. There is a paucity of lower extremity hair. There is trace pretibial edema Results & Data ([facility]) Vital Signs (Past 12 Hours) Vital Signs Temp Pulse Pulse Resp BP Pulse Ox 09/29/21 07:34 37.0 C 96 H 16 131/76 99 09/29/21 07:12 73 09/29/21 03:21 36.6 C 85 18 120/75 94 09/28/21 23:34 76 09/28/21 23:04 36.8 C 72 18 112/83 90 Diagnostic Findings mosaic floor layer notes conversion to sinus rhythm last evening. PG Care Time/CCT Total # of Minutes Spent Total Time Spent with Patient: Total time spent is greater than 50% in coordination of care (as documented) at patient's floor/unit and/or counseling patient: Coding Level of Care Code 59160 Subseq Hosp Care Lvl 3 Diagnoses Atrial fibrillation I48.91 CAD (coronary artery disease) I25.10 Hypertension I10 Hypercholesterolemia E78.00 PAD (peripheral artery disease) I73.9
[2021-09-29] MEDS ORDERED: FUROSEMIDE INJ 20 MG/2 ML VIAL IV ONE (12:18)
[2021-09-29] MEDS: cefTRIAXone SODIUM 2,000 MG in DEXTROSE 5% 50 ML IV SCH (13:03)
--- NOTE | 2021-09-29 13:09 | Pharmacy Report ---
Pharmacy Glycemic Short Note 2 - Date of Service September 29, 2021 - Glycemic Short BSG Results (Last 24 hours): 09/28/21 09/28/21 09/28/21 16:58 19:32 20:49 POC Glucose 167 H 230 H 204 H 09/29/21 09/29/21 07:32 11:41 POC Glucose 74 208 H OUTPATIENT ANTIDIABETIC REGIMEN: * HbA1c = 8.5% on 09/27/21 * Jardiance 10 mg PO QAM * Lantus 60 units SQ BID * Regular Insulin 35 units SQ TIDM * Metformin 850 mg PO TIDM ASSESSMENT: 09/29/21 * Patient's BSGs yesterday were 18-53-260-167-204 mg/dL. Fasting today is 74 mg/dL. * Patient received 71 units of insulin yesterday with 55 units of basal and bolus of 16 units. * Patient's fasting continues to be low. Received 55 units of basal yesterday ... reduce to 40 units (30% reduction) * Will tighten CR as patient's BSGs tend to climb after in range. Loosen CF to prevent overcorrection. 09/28: * Patient received total 118 units of insulin yesterday; 80 units basal + 38 units bolus. * Pt was hypoglycemic overnight last night and this AM fasting BSG = 63 mg/dl today. Basal dose held this AM. Reduced dose given at noon. * Lantus dose scale at HS ordered based on BSG. * Pre-lunch BSG = 203 mg/dl. Novolog CF and CR tightened with lunch. 09/27/21: * 75 y/o M admitted for Pneumonia and A.fib yesterday. Pt with history of Type 2 diabetes managed at home on several anti-diabetic meds as noted above. * Will hold Jardiance, Metformin and Regular insulin SQ and continue patient on basal Lantus as ordered yesterday and Novolog ACHS. * Lantus 60 units SQ BID resumed last night (home dose) but fasting BSG was 227 mg/dl this AM. * Pre-lunch BSG trended up to 409 mg/dl today. Novolog parameters tightened based on wt and stress of 3 and also taking into consideration that patient was on a significant dose of regular insulin TID at home. * If BSG continue to trend up, then plan on tightening Novolog parameters further this evening. PLAN FOR INPATIENT GLYCEMIC CONTROL: * Hold outpatient oral diabetes medications * Basal insulin * Lantus 20 units BID * Bolus insulin: tightened CF/CR * NovoLog per scale ACHS or Q6hrs while NPO * Goal Range: Low 110 mg/dL - High 140 mg/dL * Correction Factor: 20 mg/dL/unit * Nutritional / Prandial insulin per carb ratio of 1 unit per 6 grams CHO consumed PLAN FOR DISCHARGE: * Patient on approximately 225 units of insulin plus two oral agents at home. * Inhouse, patient is received 30% of what she receives at home. * Recommend working with outpatient provider to simplify regimen. Could consider endocrinology appointment. * HbA1C is 8.5% so is above goal of <8% for her age and comorbidities.
[2021-09-29] MEDS ORDERED: DIGOXIN 0.25 MG TAB PO SCH (16:00)
--- NOTE | 2021-09-29 19:31 | Discharge Summary ---
Date of Service September 29, 2021 Admission HPI Per Admitting Provider This patient is a very pleasant 75-year-old male with a history of prostate cancer status post prostatectomy, HTN, CKD stage II, PAD, CAD s/p CABG, DM 2, GERD, hyperlipidemia, and obesity who presents to the ER with worsening shortness of breath and cough. He reports that about 4 days ago he developed itchy hives all over his arms and legs that would come and go but would improve with taking Benadryl. He then developed a runny nose, sore throat, decreased appetite, and diarrhea. He also had a cough and worsening shortness of breath and wheezing He was coughing up some green sputum but no blood. The diarrhea is about 3 times a day and was nonbloody. 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 He denies any chest pains or heart palpitations. He also reports worsening ankle and lower extremity edema over the last few days. In the ER, he was found to be hypoxic with a pulse ox of 83% and was placed on oxygen. His chest x-ray showed extensive pneumonia and pleural effusion on the left. His Covid and flu A/B test were both negative. He was found to be in new onset atrial fibrillation with rates in the low 100s. A [facility] viral respiratory panel was then ordered by myself and was negative. In the ER, he received ceftriaxone, doxycycline, IV Solu-Medrol, and duo nebs with some relief. After I saw him, I obtained a CT angiogram of the chest which was negative for PE, but did unfortunately show a large left perihilar mass with associated narrowing of the left-sided bronchi and branches of the left pulmonary artery, airspace consolidation throughout left upper lobe, moderate left pleural effusion with atelectasis of left lower lobe, 2.8 cm lobulated pulmonary nodule at the left apex and findings suggestive of lymphangitic spread of tumor into the left upper lobe, bulky mediastinal lymphadenopathy, and at least 5 pulmonary nodules scattered throughout the right lung concerning for metastatic disease. I discussed his care with the vacuum pan tender after admission who will perform thoracentesis for diagnostic purposes. Of note, the patient is on aspirin and Plavix. I also discussed his care briefly with the autism teacher who will consult tomorrow-we will hold off on anticoagulation until after lung procedure He will be admitted for community-acquired pneumonia with possible new onset lung cancer, new onset atrial fibrillation, volume overload, and acute respiratory failure with hypoxia Principal Diagnosis Postobstructive pneumonia Concern for pulmonary malignancy Atrial fibrillation with conversion to sinus rhythm Discharge Exam The patient appeared anxious Vital signs as documented. Lungs are diminished breath sounds throughout the left lung field Cardiac exam, Rhythm is regular.. Monitor shows conversion to sinus rhythm Abdominal exam reveals normal bowel sounds, soft non tender, no masses Extremities are trace edematous and both pedal pulses are normal. Neurologic exam is alert and oriented, no focal loss of strength or sensation Skin is without bruises or rashes Psychologically is with concerns for anxiety Discharge Data Allergies Allergy/AdvReac Type Severity Reaction Status Date / Time Sulfa (Sulfonamide Allergy Mild Rash Verified 09/26/21 13:05 Antibiotics) sulfamethoxazole Allergy Mild Rash Verified 09/26/21 13:05 [From Bactrim] trimethoprim [From Bactrim] Allergy Mild Rash Verified 09/26/21 13:05 codeine AdvReac Mild Nausea/"wild Verified 09/26/21 13:05 dreams" Consultations 09/26/21 12:38 ED Decision to Admit Stat 09/26/21 14:10 Consult Cardiology Routine Consult Pulmonology Routine 09/29/21 08:31 Consult Radiation Oncology Routine Ordered Studies 09/26/21 13:10 CT angio chest PE protocol Stat 09/28/21 19:50 MR brain wo/w con Routine Hospital Course (1) Pneumonia: Patient presents with shortness of breath, hypoxia, postobstructive pneuonia with masses in the left lung plus mediastinal lymphadenopathy preceded by a viral-like illness Bio fire negative, Covid-19 and influenza A/B all negative CT angiogram the chest negative for PE but with extensive masslike lesions, moderate pleural effusion with compressive atelectasis, and bulky mediastinal lymphadenopathy all suspicious for lung cancer with metastases did meet radiation oncology while in the hospital will likely have some outpatient radiation We will go home on Augmentin -Supplemental O2 to keep pulse ox greater than 90% patient currently on 3 liters at rest 5 L with exertion, underlying COPD with extensive smoking history - Pulmonary pathology is concerning for malignancy however exact cell type is not determined yet patient has been background history of prostate cancer this will also be considered although not typical for his metastatic spread (2) Pulmonary nodules/lesions, multiple: As above Malignancy highly suspected Appreciate pulmonology consultation, recommend coordinate with rad oncology and oncology patients follows with Jagdeep Damon for oncology at [facility]. Receiving continued care for prostate cancer (3) Pleural effusion: Most likely malignant effusion EF shows preserved EF does not appear effusion is from cardiogenic source -Give 1 dose Lasix 20 mg IV x1 (4) Hypoxia: Acute hypoxic respiratory failure secondary to postobstructive pneumonia with likely malignancysupplemental oxygen (5) Atrial fibrillation: New onset atrial fibrillation. He reports he had some lone atrial fibrillation in the immediate postoperative time after his CABG but none since then Increased home metoprolol to 100 mg p.o. twice daily for improved rate control, cardiology. Digoxin, converted to normal sinus rhythm. Wwill not start Noac until risk of additional procedure such as bronchoscopy is ruled out Will need to start on anticoagulation-discussed Eliquis with patient he is agreeable-we will hold off until after thoracentesis and to make sure no other procedures needed with pulmonology If starts on Eliquis, would discontinue likely the aspirin and continue only Plavix and Eliquis in the setting of severe PAD and history of CABG Cardiology agrees with rate control, echocardiogram is without significant change Will need follow-up once procedures are done to consider initiating Eliquis therapy hopefully patient will stay in sinus rhythm until that time (6) Hypertension: Blood pressures are controlled Continue home amlodipine, losartan, and increase metoprolol to 100 mg p.o. twice daily for better rate control with A. fib (7) Stage 2 chronic kidney disease: CKD stage II, follows with nephrology, with proteinuria Secondary to hypertension and diabetes Continue losartan (8) PAD (peripheral artery disease): With history of right common iliac artery stent and extensive disease in the right lower extremity with claudication which is now improved Continue dual antiplatelet therapy for now, but would consider removing aspirin if anticoagulation is begun for DVT prevention Continue simvastatin Follows with vascular surgery at [place] (9) CAD (coronary artery disease): Status post CABG No acute issues Continue dual antiplatelet therapy, metoprolol, statin Follows with cardiology at [facility] Dr. Small has reviewed (10) Acid reflux disease: Patient recently started on Pepcid for heartburn last week which is now resolved Continue Pepcid (11) Hypercholesterolemia: Continue statin (12) Uncontrolled type 2 diabetes mellitus with neurologic complication, with long-term current use of insulin: Will resume home diabetic management 8.5 hemoglobin A1c (13) Depression: Continue home trazodone (14) Transaminitis: mild and improving There is lot of care coordination as an outpatient to be had with this patient. Patient however distally wanted to go home he is on a significant mount of oxygen at this time. Hopeful we can coordinate with pulmonary medicine to get a defined diagnosis radiation oncology to begin treating his bulky mediastinal lymphadenopathy and following up with Jagdeep Damon to have cancer treatment plans for the future. Full code Total Time Total Time Spent Total Time Spent (In Minutes): It required greater than 30 minutes to prepare this patient for discharge Discharge Plan Discharge Items Patient Disposition: Home - Self-Care Reason For Visit: PNEUMONIA, HYPOXIA, NEW AFIB Discharge Diagnosis: lung mass post obstructive pneumonia atrial fibrillation Activity: Resume your previous activity Non-emergency contact: Primary Care Provider Call non-emergency contact if: your symptoms worsen and you have a fever Follow-up/Referrals: Willem Man MD [Physician] - (The pulmonology office will be in contact with you to schedule an appointment.) Amish Kamara DO [Primary Care Provider] - Diet: Carb Consistent or DM2 Addtl Attending Provider Instructions: we are suspicious that the fluid sample removed from you lung did contain cancer like cells, we will have you set up to see our cancer specialists here at the [facility]. There is Radiation treatment and oncology. Pending Studies at Discharge: Yes (final analysis of lung fluid) Stand-Alone Forms: My [facility], Smoking Cessation Medications and DC Order Prescriptions: New metoprolol tartrate 100 mg Tablet 100 mg PO BID Qty: 60 RF: 5 digoxin 250 mcg (0.25 mg) Tablet 250 mcg PO DAILY@1600 Qty: 30 RF: 5 amoxicillin-pot clavulanate [Augmentin] 875-125 mg tablet 1 tab PO BID Qty: 20 RF: 0 (DME) Oxygen Home Liters Per Minute See Rx Instructions .Route Qty: 3 RF: 0 Continued metformin 850 mg tablet 850 mg PO TID Qty: 270 RF: 3 trazodone 100 mg tablet 100 mg PO HS Qty: 30 RF: 11 Novolin R Regular U-100 Insuln 100 unit/mL solution 35 unit SQ TID 30 Days Qty: 40 RF: 5 Lantus U-100 Insulin 100 unit/mL solution 60 unit SQ BID Qty: 11 RF: 3 clopidogrel [Plavix] 75 mg tablet 75 mg PO QAM Qty: 90 RF: 3 simvastatin [Zocor] 80 mg tablet 80 mg PO HS Qty: 90 RF: 3 aspirin [Filiberto Aspirin] 325 mg Tablet 325 mg PO QAM RF: 0 cyanocobalamin (vitamin B-12) [Vitamin B-12] 1,000 mcg tablet 1,000 mcg PO QAM RF: 0 famotidine [Acid [employer] (famotidine)] 10 mg tablet 10 mg PO QAM RF: 0 amlodipine [Norvasc] 10 mg tablet 10 mg PO QAM RF: 0 losartan [Cozaar] 100 mg tablet 100 mg PO QAM RF: 0 fluoxetine [Prozac] 20 mg capsule 20 mg PO QAM RF: 0 Jardiance 10 mg tablet 10 mg PO QAM RF: 0 Discontinued metoprolol tartrate [Lopressor] 50 mg tablet 75 mg PO BID RF: 0 No Action (DME) insulin syringe-needle U-100 [BD Insulin Syringe Ultra-Fine] 0.5 mL 31 gauge x 5/16" syringe See Rx Instructions .ROUTE .MEDSUPPLY Qty: 600 RF: 3 Discharge Orders: Discharge Order (Routine); Ordered 09/29/21 Ordered By: Elbert Ness/Other Patient Handouts: Managing Type 2 Diabetes Admission Data Admit Date/Time: 09/26/21 14:10 Attending Provider: Elbert Carrera Admit Provider: Destiny Garza Primary Care Provider: Amish Kamara Other Providers: Karl Reddy ; Willem Man ; Destiny Garza ; Shraddha Damon Other Interventions: Discharge Summary Assessment (RN) Last Done: 09/29/21 13:14 Coding Level of Care Code D/C DAY MANAGEMENT >30 MINS Diagnoses Pneumonia J18.9 Pulmonary nodules/lesions, multiple R91.8 Pleural effusion J90 Hypoxia R09.02 Atrial fibrillation I48.91 Hypertension I10 Stage 2 chronic kidney disease N18.2 PAD (peripheral artery disease) I73.9 CAD (coronary artery disease) I25.10 Acid reflux disease K21.9 Hypercholesterolemia E78.00 Uncontrolled type 2 diabetes mellitus with neurologic complication, with long- term current use of insulin E11.49; E11.65; Z79.4 Depression F32.9 Transaminitis R74.01
== END 2021-09-29 14:51 | disposition home or self-care (01) | DRG 193 ==
LOC: ED 09:46 → EDINP 14:10 → SUATTDRO 14:10 → EDINP 16:46 → 2S 18:50

== ENCOUNTER 2021-10-18 16:11 | Inpatient (IN) ==
--- NOTE | 2021-10-18 16:34 | Emergency Department Note ---
Impression & Plan Cough with hemoptysis, Pleural effusion ED Provider Note NAME: DANIEL NOLAN AGE: 76 SEX: M : 1945 ARRIVES VIA: Ambulance INFORMANT: Patient, EMS ED PROVIDER(S): Desean Duffy DO CHIEF COMPLAINT: Hemoptysis HPI: The patient is a 76-year-old male who presented to the emergency department for an evaluation of hemoptysis. The patient noted cough over the last few days. He noticed zack mopped assist approximately 4-5 times. He denies having any abdominal pain. He said no vomiting. He notices some dark stool. He does note lower extremity swelling as well as weeping from his legs. He does have a history of cancer with metastatic disease to the chest. The patient does take blood thinners in the way of Plavix but does not take any other medications for blood thinner. The patient does have a history of diabetes. He called his family doctor and was referred to the emergency department emergently. He presented via ambulance. He was noted to have a borderline oxygen saturation prior to arrival. He has had no exposure to COVID-19. He states his symptoms are mildly improved at this time. He does note shortness of breath with exertion. ROS: See above HPI for pertinent positives & negatives. A total of 10 systems reviewed and were otherwise negative. PAST MEDICAL HISTORY: See Below PAST SURGICAL HISTORY: See Below FAMILY HISTORY: See Below SOCIAL HISTORY: See Below HOME MEDICATIONS: See Below ALLERGIES: See Below VITALS: See Below PHYSICAL EXAMINATION: GENERAL: The patient is awake and alert. He is somewhat anxious appearing. EYES: The conjunctivae are clear. The pupils are round and reactive. EARS, NOSE, MOUTH AND THROAT: The nose is without any evidence of any deformity. Some clotted blood was noted around the mouth. NECK: The neck is nontender and supple. RESPIRATORY: Diminished breath sounds noted throughout. There were scant wheezing noted. There is mild conversational dyspnea. CARDIOVASCULAR: Regular rate and rhythm noted there no murmurs rubs or gallops normal S1 normal S2. GASTROINTESTINAL: The abdomen is soft. Abdomen is nontender. MUSCULOSKELETAL/EXTREMITIES: There is no evidence of gross deformity full range of motion is noted in the hips and shoulders. SKIN: Skin is warm and dry. Pedal edema was noted bilaterally. NEUROLOGIC: Patient is awake alert and oriented x3. MEDICAL DECISION MAKING: Who presented to the emergency department for an evaluation of difficulty breathing and hemoptysis. The patient has a history of known pleural effusion on the left. He has had thoracentesis. There is been no formal diagnosis but this is felt to be secondary to a neoplastic process. The patient has worsening pleural effusion as well as shortness of breath. He is also experiencing hemoptysis. I discussed the patient's laboratory and radiographic studies with him. I also discussed this case with the on-call [facility] hospitalist. They have agreed to evaluate the patient in the emergency department for further management and disposition. Triage Nursing notes reviewed. Prior medical records reviewed Vital Signs: reviewed and remarkable for tachycardia and hypoxia. Differential diagnosis: Reactive airway disease, pneumonia, pneumothorax, COPD, CHF, infections, cardiac ischemia, pulmonary embolism, musculoskeletal, gastrointestinal, as well as other pathologies. ER treatment provided: See below Diagnostics interpreted by me: ECG: EKG was obtained in the emergency department. My interpretation is atrial fibrillation at 80 bpm. There is no PVCs noted. Inferior and lateral ST segment abnormalities with T wave inversions were noted. Low voltage was noted throughout. This was compared to a tracing from September 26, 2021. No significant changes were noted. Cardiac Monitoring: An order was placed for continuous cardiac monitoring. The monitor shows a rate of a 95 bpm with atrial fibrillation. Laboratory studies: As stated above and show below. Imaging studies: See below Consultation(s): I discussed this case with Dr. Sutton. They will evaluate the patient in the emergency department for further management and disposition. The patient is a 76-year-old male Past Med/Surg History Medical History Acid reflux disease Anxiety Atrial fibrillation CAD (coronary artery disease) Chronic kidney disease, stage II (mild) Depression Diabetic nephropathy Diabetic peripheral neuropathy Diabetic retinopathy DM (diabetes mellitus), type 2 Hypercholesterolemia Hypertension Hyponatremia PAD (peripheral artery disease) Prostate CA Treated with surgery and then radiation in 2001 Stage 2 chronic kidney disease Type 2 diabetes mellitus with stage 2 chronic kidney disease and hypertension Uncontrolled type 2 diabetes mellitus with neurologic complication, with long- term current use of insulin Surgical History History of angiography With right iliac stent placement History of appendectomy [place] [facility] [place] History of colonoscopy History of heart artery stent 1996--1 stent History of lumbar discectomy History of prostate biopsy malignant History of radical prostatectomy 2001 History of tooth extraction full upper denture History of wisdom tooth extraction S/P CABG x 3 d/t CAD 2007 [place] [facility] [place]follows with Dr. Small Family History Father Myocardial infarction Mother Myocardial infarction Family history of diabetes mellitus Sister Family history of diabetes mellitus Other No family history of adverse response to anesthesia Prostate cancer Denies family history of Ovarian cancer Breast cancer Colorectal cancer Social History Smoking Status: Former smoker Tobacco Type: Cigarettes Number of Years Since Quit: 21; Second Hand Exposure: No; Hx Alcohol Use: Yes Alcohol type: beer Alcohol Intake Frequency: 2-4 x/Month Hx Substance Use: No Preferred Language: [place] Communication Ability: Effective Welder Assistant Required: No Beliefs That Will Affect Care: None marital status: Current Living Situation: Spouse current occupational status: retired How many Children do You have: 2 Feels Safe at Home: Yes Childhood Exposure to Second-Hand Smoke: No caffeine: Yes Dental Care, Regularly: Yes Physical Activity Frequency: 1-2 Times per Week Seatbelt Use: always Sunscreen Use: No Assistive Devices: Cane, Denture - Upper, Glasses and Oxygen - Continuous Allergies Allergies Allergy/AdvReac Type Severity Reaction Status Date / Time Sulfa (Sulfonamide Allergy Mild Rash Verified 10/18/21 16:25 Antibiotics) sulfamethoxazole Allergy Mild Rash Verified 10/18/21 16:25 [From Bactrim] trimethoprim [From Bactrim] Allergy Mild Rash Verified 10/18/21 16:25 codeine AdvReac Mild Nausea/"wild Verified 10/18/21 16:25 dreams" Home Meds Home Medications Medication Instructions Recorded Confirmed aspirin 325 mg tablet (Filiberto 325 mg PO QAM 05/04/19 10/18/21 Aspirin) cyanocobalamin (vitamin B-12) 1,000 mcg PO QAM 08/09/20 10/18/21 1,000 mcg tablet (Vitamin B-12) amlodipine 10 mg tablet (Norvasc) 10 mg PO QAM 07/28/21 10/18/21 empagliflozin 10 mg tablet 10 mg PO QAM 07/28/21 10/18/21 (Jardiance) famotidine 10 mg tablet (Acid 10 mg PO QAM 07/28/21 10/18/21 Clip Riveter (famotidine)) fluoxetine 20 mg capsule (Prozac) 20 mg PO QAM 07/28/21 10/18/21 losartan 100 mg tablet (Cozaar) 100 mg PO QAM 07/28/21 10/18/21 doxazosin 1 mg tablet 1 mg PO HS 10/18/21 10/18/21 metoprolol tartrate 50 mg tablet 75 mg PO BID 10/18/21 10/18/21 Previous Rx's Medication Instructions Recorded insulin syringe-needle U-100 0.5 #600 ea 10/10/20 mL 31 gauge x 5/16" (BD Insulin Syringe Ultra-Fine) metformin 850 mg tablet 850 mg PO TID #270 tab 10/19/20 trazodone 100 mg tablet 100 mg PO HS #30 tab 02/13/21 insulin regular human 100 unit/mL 35 unit SQ TID 30 Days #40 ml 03/24/21 injection solution (Novolin R Regular U-100 Insulin) clopidogrel 75 mg tablet (Plavix) 75 mg PO QAM #90 tab 08/31/21 simvastatin 80 mg tablet (Zocor) 80 mg PO HS #90 tab 08/31/21 insulin glargine 100 unit/mL 60 unit SQ BID #11 vial 09/05/21 subcutaneous solution (Lantus U-100 Insulin) Oxygen Home #3 l 09/29/21 digoxin 250 mcg (0.25 mg) tablet 250 mcg PO DAILY@1600 #30 tab 09/29/21 furosemide 40 mg tablet 40 mg PO BID #60 tab 10/13/21 Results & Data (ED) Vital Signs Vital Signs - 24 hr 10/18/21 16:21 10/18/21 16:34 10/18/21 16:58 Temperature 36.5 C Temperature Source Oral Pulse Rate 94 H 90 Pulse Rate [Right Finger] Pulse Rhythm Regular Respiratory Rate 20 20 Respiratory Effort / Characteristics Non-Labored Labored Short of Breath Respiratory Depth Normal Respiratory Pattern Regular Tachypnea Blood Pressure 116/61 Blood Pressure [Right Arm] Blood Pressure Mean 79 Blood Pressure Mean [Right Arm] Pulse Oximetry 97 98 Oxygen Delivery Method Nasal Cannula Nasal Cannula Nasal Cannula Oxygen Flow Rate 6 6 2 Sepsis Recent Fever Within 48 Hours No Sepsis New/Unexplained Change in Mental Status No Sepsis Action Taken by Nursing No Action Required 10/18/21 20:35 10/18/21 22:35 Temperature Temperature Source Pulse Rate Pulse Rate [Right Finger] 95 H Pulse Rhythm Respiratory Rate 19 19 Respiratory Effort / Characteristics Respiratory Depth Respiratory Pattern Blood Pressure Blood Pressure [Right Arm] 131/68 Blood Pressure Mean Blood Pressure Mean [Right Arm] 89 Pulse Oximetry 96 93 Oxygen Delivery Method Nasal Cannula Nasal Cannula Oxygen Flow Rate 2 2 Sepsis Recent Fever Within 48 Hours Sepsis New/Unexplained Change in Mental Status Sepsis Action Taken by [facility] Medications Current Medication List: was personally reviewed by me Laboratory Data Attestation: I reviewed the patient's lab results. Result diagrams: 10/18/21 16:55 10/18/21 16:55 Lab Results 10/18/21 10/18/21 10/18/21 Range/Units 16:55 16:55 16:55 WBC 14.05 H (4.8-10.8) K/uL RBC 4.43 L (4.7-6.1) M/uL Hgb 12.3 L (14.0-18.0) g/dL POC Hgb (14.0-18.0) g/dl Hct 39.4 L (42-52) % POC Hct (42-52) % MCV 88.9 (80-100) fL MCH 27.8 (25-34) pg MCHC 31.2 L (32-36) g/dL RDW Std Deviation 49.4 H (36.4-46.3) fL RDW Coeff of Shlomo 15.2 H (11.5-14.5) % Plt Count 574 H (130-400) K/uL MPV 8.4 (7.4-10.4) fL Immature Gran % (Auto) 0.9 % Neut % (Auto) 85.2 % Lymph % (Auto) 3.4 % [place] % (Auto) 10.3 % Eos % (Auto) 0.1 % Baso % (Auto) 0.1 % Neut # (Auto) 11.97 H (1.4-6.5) K/uL Lymph # (Auto) 0.48 L (1.2-3.4) K/uL [place] # (Auto) 1.45 H (0.11-0.59) K/uL Eos # (Auto) 0.02 (0-0.5) K/uL Baso # (Auto) 0.01 (0-0.2) K/uL Immature Gran # (Auto) 0.12 H (0.00-0.02) K/uL PT (9.0-12.0) Seconds INR (0.9-1.1) APTT (21.0-31.0) Seconds PTT Ratio POC Sodium (135-144) mmol/L Sodium 133 L (136-145) mmol/L POC Potassium (3.3-5.0) mmol/L Potassium 5.1 (3.5-5.1) mmol/L POC Chloride (101-112) mmol/L Chloride 97 L (98-107) mmol/L Carbon Dioxide 26 (21-32) mmol/L POC Total CO2 (24-31) mmol/L Anion Gap 10.0 (3-11) POC Anion Gap (16-25) mmol/L POC BUN (7-18) mg/dl BUN 44 H (7-18) mg/dl Creatinine 1.26 (0.6-1.4) mg/dl POC Creatinine (0.6-1.3) mg/dl Est Cr Clr Drug Dosing 62.5 ml/min Est GFR ( Amer) 64.7 ml/min Est GFR (Non-Af Amer) 55.8 ml/min BUN/Creatinine Ratio 35.2 H (10-20) Glucose 358 H* (70-99) mg/dl POC Glucose (70-99) mg/dl POC Glucose (other) (70-99) mg/dl Calcium 9.4 (8.5-10.1) mg/dl POC Ioniz Calcium Luz (1.12-1.32) mmol/l Total Bilirubin 0.3 (0.2-1) mg/dl AST 56 H (15-37) U/L ALT 90 H (12-78) Alkaline Phosphatase 127 H (45-117) U/L Troponin I 0.028 (0-0.045) ng/ml Total Protein 6.9 (6.4-8.2) gm/dl Albumin 2.0 L (3.4-5.0) gm/dl Globulin 4.9 H (2.5-4.0) gm/dl Albumin/Globulin Ratio 0.4 L (0.9-2) Lipase 74 (73-393) U/L Beta-Hydroxybutyric Acd 5.97 H (0.2-2.81) mg/dl Digoxin (0.8-2.0) ng/ml SARS-CoV-2 (PCR) (Negative) Influenza Type A (PCR) (Neg) Influenza Type B (PCR) (Neg) RSV (RT-PCR) (Neg) Blood Type O Positive Antibody Screen NEGATIVE 10/18/21 10/18/21 10/18/21 Range/Units 16:55 16:55 17:12 WBC (4.8-10.8) K/uL RBC (4.7-6.1) M/uL Hgb (14.0-18.0) g/dL POC Hgb 13.9 L (14.0-18.0) g/dl Hct (42-52) % POC Hct 41 L (42-52) % MCV (80-100) fL MCH (25-34) pg MCHC (32-36) g/dL RDW Std Deviation (36.4-46.3) fL RDW Coeff of Shlomo (11.5-14.5) % Plt Count (130-400) K/uL MPV (7.4-10.4) fL Immature Gran % (Auto) % Neut % (Auto) % Lymph % (Auto) % [place] % (Auto) % Eos % (Auto) % Baso % (Auto) % Neut # (Auto) (1.4-6.5) K/uL Lymph # (Auto) (1.2-3.4) K/uL [place] # (Auto) (0.11-0.59) K/uL Eos # (Auto) (0-0.5) K/uL Baso # (Auto) (0-0.2) K/uL Immature Gran # (Auto) (0.00-0.02) K/uL PT 11.9 (9.0-12.0) Seconds INR 1.2 H (0.9-1.1) APTT 30.5 (21.0-31.0) Seconds PTT Ratio 1.2 POC Sodium 133 L (135-144) mmol/L Sodium (136-145) mmol/L POC Potassium 5.2 H (3.3-5.0) mmol/L Potassium (3.5-5.1) mmol/L POC Chloride 97 L (101-112) mmol/L Chloride (98-107) mmol/L Carbon Dioxide (21-32) mmol/L POC Total CO2 23 L (24-31) mmol/L Anion Gap (3-11) POC Anion Gap 19.0 (16-25) mmol/L POC BUN 42 H (7-18) mg/dl BUN (7-18) mg/dl Creatinine (0.6-1.4) mg/dl POC Creatinine 1.0 (0.6-1.3) mg/dl Est Cr Clr Drug Dosing ml/min Est GFR ( Amer) ml/min Est GFR (Non-Af Amer) ml/min BUN/Creatinine Ratio (10-20) Glucose (70-99) mg/dl POC Glucose (70-99) mg/dl POC Glucose (other) 369 H* (70-99) mg/dl Calcium (8.5-10.1) mg/dl POC Ioniz Calcium Luz 1.08 L (1.12-1.32) mmol/l Total Bilirubin (0.2-1) mg/dl AST (15-37) U/L ALT (12-78) Alkaline Phosphatase (45-117) U/L Troponin I (0-0.045) ng/ml Total Protein (6.4-8.2) gm/dl Albumin (3.4-5.0) gm/dl Globulin (2.5-4.0) gm/dl Albumin/Globulin Ratio (0.9-2) Lipase (73-393) U/L Beta-Hydroxybutyric Acd (0.2-2.81) mg/dl Digoxin 1.0 (0.8-2.0) ng/ml SARS-CoV-2 (PCR) (Negative) Influenza Type A (PCR) (Neg) Influenza Type B (PCR) (Neg) RSV (RT-PCR) (Neg) Blood Type Antibody Screen 10/18/21 10/18/21 Range/Units 17:30 22:07 WBC (4.8-10.8) K/uL RBC (4.7-6.1) M/uL Hgb (14.0-18.0) g/dL POC Hgb (14.0-18.0) g/dl Hct (42-52) % POC Hct (42-52) % MCV (80-100) fL MCH (25-34) pg MCHC (32-36) g/dL RDW Std Deviation (36.4-46.3) fL RDW Coeff of Shlomo (11.5-14.5) % Plt Count (130-400) K/uL MPV (7.4-10.4) fL Immature Gran % (Auto) % Neut % (Auto) % Lymph % (Auto) % [place] % (Auto) % Eos % (Auto) % Baso % (Auto) % Neut # (Auto) (1.4-6.5) K/uL Lymph # (Auto) (1.2-3.4) K/uL [place] # (Auto) (0.11-0.59) K/uL Eos # (Auto) (0-0.5) K/uL Baso # (Auto) (0-0.2) K/uL Immature Gran # (Auto) (0.00-0.02) K/uL PT (9.0-12.0) Seconds INR (0.9-1.1) APTT (21.0-31.0) Seconds PTT Ratio POC Sodium (135-144) mmol/L Sodium (136-145) mmol/L POC Potassium (3.3-5.0) mmol/L Potassium (3.5-5.1) mmol/L POC Chloride (101-112) mmol/L Chloride (98-107) mmol/L Carbon Dioxide (21-32) mmol/L POC Total CO2 (24-31) mmol/L Anion Gap (3-11) POC Anion Gap (16-25) mmol/L POC BUN (7-18) mg/dl BUN (7-18) mg/dl Creatinine (0.6-1.4) mg/dl POC Creatinine (0.6-1.3) mg/dl Est Cr Clr Drug Dosing ml/min Est GFR ( Amer) ml/min Est GFR (Non-Af Amer) ml/min BUN/Creatinine Ratio (10-20) Glucose (70-99) mg/dl POC Glucose 244 H (70-99) mg/dl POC Glucose (other) (70-99) mg/dl Calcium (8.5-10.1) mg/dl POC Ioniz Calcium Luz (1.12-1.32) mmol/l Total Bilirubin (0.2-1) mg/dl AST (15-37) U/L ALT (12-78) Alkaline Phosphatase (45-117) U/L Troponin I (0-0.045) ng/ml Total Protein (6.4-8.2) gm/dl Albumin (3.4-5.0) gm/dl Globulin (2.5-4.0) gm/dl Albumin/Globulin Ratio (0.9-2) Lipase (73-393) U/L Beta-Hydroxybutyric Acd (0.2-2.81) mg/dl Digoxin (0.8-2.0) ng/ml SARS-CoV-2 (PCR) NEGATIVE (Negative) Influenza Type A (PCR) Negative (Neg) Influenza Type B (PCR) Negative (Neg) RSV (RT-PCR) Negative (Neg) Blood Type Antibody Screen Administered Medications Morphine Sulfate (Morphine Sulfate 2 Mg/Ml Carp) 2 mg IV Q4 PRN PRN Reason: Pain Stop: 11/01/21 23:18 Last Admin: 10/19/21 00:09 Dose: 2 mg Documented by: [id number] Discontinued Medications Sodium Chloride (Nss 1000ml) 500 mls @ 999 mls/hr IV .Q31M ONE Stop: 10/18/21 23:34 Last Admin: 10/19/21 00:10 Dose: 999 mls/hr Documented by: [id number] Insulin Human Regular (Novolin-R Insulin Per Unit Charge) 12 units IV NOW STA Stop: 10/18/21 19:36 Last Admin: 10/18/21 19:45 Dose: 12 units Documented by: [id number] Cosigned by: [id number] Ioversol (Optiray 320 125ml) 120 ml IV ONCE ONE Stop: 10/18/21 17:53 Last Admin: 10/18/21 17:48 Dose: 120 ml Documented by: [id number] Morphine Sulfate (Morphine Sulfate 4 Mg/Ml 1 Ml Carp\\Vial) 4 mg IV NOW STA Stop: 10/18/21 19:36 Last Admin: 10/18/21 19:49 Dose: 4 mg Documented by: [id number] Ondansetron HCl (Ondansetron Inj 2 Mg/Ml 2 Ml Vial) 4 mg IV NOW STA Stop: 10/18/21 19:36 Last Admin: 10/18/21 19:49 Dose: 4 mg Documented by: [id number] Imaging Data Radiologist's Impression: Chest X-Ray 10/18/21 16:29 XR chest 1V portable HISTORY: 76 years-old Male Chest Pain Chest pain with history of lung cancer COMPARISON: Chest radiograph and CTA chest 09/26/2021 TECHNIQUE: Multiple AP view of the chest FINDINGS: Prior median sternotomy. There is progressive alveolar opacification of the left hemithorax. Subcentimeter nodule of the right midlung. Ill-defined interstitial coarsening with hazy opacities of the right lung. No pneumothorax or large right pleural effusion. Degenerative changes of the shoulders and spine. IMPRESSION: 1. Progressive now complete opacification of left hemithorax likely representing combination of pleural effusion with airspace disease. 2. Nodules of the right lung are better seen on comparison chest CT. ACT 112: Negative or not required by law. The above report was generated using voice recognition software. It may contain grammatical, syntax or spelling errors. Electronically signed by: Ruddy Ibanez M.D. 10/18/2021 5:29 PM Chest CTA 10/18/21 16:30 CT angio chest PE protocol CT DOSE: 846.82 mGy.cm HISTORY: 76 years-old Male with Chest Pain, eval for PE. Acute chest pain with shortness of breath TECHNIQUE: Multiple CTA images of the chest were obtained after the intravenous administration of 120 ml Optiray. Coronal and sagittal MIPS were obtained from the axial data set and were submitted for review. All measurements were obtained according to NASCET criteria. A dose lowering technique was utilized adhering to the principles of ALARA. COMPARISON: Chest radiograph of same day, CTA chest 09/26/2021 FINDINGS: CTA: The heart is mildly enlarged. There is mild mass effect the heart secondary to a large left pleural effusion has described below. Prior median sternotomy and CABG. Extensive [place] coronary artery calcifications. Atherosclerosis of the aorta with patency of the imaged great vessels. The segmental and subsegmental pulmonary arterial branches are suboptimally visualized secondary to respiratory motion artifact, notably within the right lung base. No pulmonary emboli are identified. CT CHEST: No thyroid nodule. Numerous pathologically enlarged mediastinal and bilateral hilar lymph nodes redemonstrated without significant change from prior. Pathologic periesophageal and pericardial lymph nodes are also unchanged. Large left pleural effusion. Pleural thickening and enhancement of the left h emithorax has progressed from prior with mild soft tissue nodularity. There is complete consolidation with volume loss of the left lung. Mucous plugging of the left mainstem bronchus with opacification of the left upper and lower lobe bronchi. Obscuration of the previously described suspicious left upper lobe nodule. Trace right pleural effusion. Respiratory motion artifact limits the study. Subpleural nodules throughout the right lung redemonstrated sebaceous for metastatic disease. Some of these appear to have mildly increased in size. Groundglass densities are noted throughout the right lung. No acute process of the imaged upper abdomen. Hepatic steatosis. Unremarkable soft tissues. No acute fracture or suspicious bone lesion is identified. IMPRESSION: 1. Study is degraded by respiratory motion artifact. No pulmonary emboli are identified. 2. Large left pleural effusion has increased in size from 09/26/2021. Additionally, there is mild associated pleural thickening. Findings are suggestive of a malignant pleural effusion with possible pleural metastatic disease. Superimposed infection could appear similarly. 3. Complete consolidation of the left lung with left-sided bronchial mucous plugging and opacification. 4. Trace right pleural effusion. 5. Numerous pathologic lymph nodes of the chest, most pronounced within the mediastinal and hilar distributions are redemonstrated suggestive of lymphatic metastatic disease. 6. Scattered right-sided pulmonary nodules suggestive of metastatic disease have increased in size from prior. ACT 112: Negative or not required by law. The above report was generated using voice recognition software. It may contain grammatical, syntax or spelling errors. Electronically signed by: Ruddy Ibanez M.D. 10/18/2021 6:23 PM Discharge Plan Visit Data Chief Complaint: Shortness of Breath/Dyspnea Stated Complaint: Illness, SOB ED Provider: Desean Duffy Discharge Problem: Cough with hemoptysis, Pleural effusion Patient Disposition: Being Evaluated by Hospitalist Forms Stand Alone Forms: My [employer] Prescriptions Prescriptions: No Action (DME) insulin syringe-needle U-100 [BD Insulin Syringe Ultra-Fine] 0.5 mL 31 gauge x 5/16" syringe See Rx Instructions .ROUTE .MEDSUPPLY Qty: 600 RF: 3 metformin 850 mg tablet 850 mg PO TID Qty: 270 RF: 3 trazodone 100 mg tablet 100 mg PO HS Qty: 30 RF: 11 Novolin R Regular U-100 Insuln 100 unit/mL solution 35 unit SQ TID 30 Days Qty: 40 RF: 5 Lantus U-100 Insulin 100 unit/mL solution 60 unit SQ BID Qty: 11 RF: 3 clopidogrel [Plavix] 75 mg tablet 75 mg PO QAM Qty: 90 RF: 3 simvastatin [Zocor] 80 mg tablet 80 mg PO HS Qty: 90 RF: 3 furosemide 40 mg tablet 40 mg PO BID Qty: 60 RF: 5 aspirin [Filiberto Aspirin] 325 mg Tablet 325 mg PO QAM RF: 0 cyanocobalamin (vitamin B-12) [Vitamin B-12] 1,000 mcg tablet 1,000 mcg PO QAM RF: 0 famotidine [Acid Clip Riveter (famotidine)] 10 mg tablet 10 mg PO QAM RF: 0 amlodipine [Norvasc] 10 mg tablet 10 mg PO QAM RF: 0 losartan [Cozaar] 100 mg tablet 100 mg PO QAM RF: 0 fluoxetine [Prozac] 20 mg capsule 20 mg PO QAM RF: 0 Jardiance 10 mg tablet 10 mg PO QAM RF: 0 digoxin 250 mcg (0.25 mg) Tablet 250 mcg PO DAILY@1600 Qty: 30 RF: 5 (DME) Oxygen Home Liters Per Minute See Rx Instructions .Route Qty: 3 RF: 0 doxazosin 1 mg tablet 1 mg PO HS RF: 0 metoprolol tartrate 50 mg tablet 75 mg PO BID RF: 0 Referrals Referrals: Jenna Kulkarni CRNP [Primary Care Provider] -
[2021-10-18 17:04] LABS: Basophils # (auto) 0.01 K/uL (0-0.2); Basophils % (auto) 0.1 %; Eosinophils # (auto) 0.02 K/uL (0-0.5); Eosinophils % (auto) 0.1 %; Hematocrit (blood only) 39.4 % (42-52); Hemoglobin 12.3 g/dL (14.0-18.0); Immature Granulocytes # (auto) 0.12 K/uL (0.00-0.02); Immature Granulocytes % (auto) 0.9 %; Lymphocytes # (auto) 0.48 K/uL (1.2-3.4); Lymphocytes % (auto) 3.4 %; Mean Corpuscular Hemoglobin 27.8 pg (25-34); Mean Corpuscular Hgb Conc 31.2 g/dL (32-36); Mean Corpuscular Volume 88.9 fL (80-100); Mean Platelet Volume 8.4 fL (7.4-10.4); Monocytes # (auto) 1.45 K/uL (0.11-0.59); Monocytes % (auto) 10.3 %; Neutrophils # (auto) 11.97 K/uL (1.4-6.5); Neutrophils % (auto) 85.2 %; Platelet Count 574 K/uL (130-400); RDW Coefficient of Variation 15.2 % (11.5-14.5); RDW Standard Deviation 49.4 fL (36.4-46.3); Red Blood Count 4.43 M/uL (4.7-6.1); White Blood Count 14.05 K/uL (4.8-10.8)
[2021-10-18 17:20] LABS: INR 1.2 (0.9-1.1); Partial Thromboplastin Ratio 1.2; Partial Thromboplastin Time 30.5 Seconds (21.0-31.0); Prothrombin Time 11.9 Seconds (9.0-12.0)
[2021-10-18 17:26] LABS: iSTAT Hemoglobin 13.9 g/dl (14.0-18.0); iSTAT Ionized Calcium 1.08 mmol/l (1.12-1.32); iSTAT Potassium 5.2 mmol/L (3.3-5.0)
--- NOTE | 2021-10-18 17:31 | XRay Report ---
XR chest 1V portable HISTORY: 76 years-old Male Chest Pain Chest pain with history of lung cancer COMPARISON: Chest radiograph and CTA chest 09/26/2021 TECHNIQUE: Multiple AP view of the chest FINDINGS: Prior median sternotomy. There is progressive alveolar opacification of the left hemithorax. Subcenti meter nodule of the right midlung. Ill-defined interstitial coarsening with hazy opacities of the rig ht lung. No pneumothorax or large right pleural effusion. Degenerative changes of the shoulders and s pine. IMPRESSION: 1. Progressive now complete opacification of left hemithorax likely representing combination of pleur al effusion with airspace disease. 2. Nodules of the right lung are better seen on comparison chest CT. ACT 112: Negative or not required by law. The above report was generated using voice recognition software. It may contain grammatical, syntax o r spelling errors. Electronically signed by: Ruddy Ibanez M.D. 10/18/2021 5:29 PM
[2021-10-18 17:35] LABS: Albumin Globulin Ratio 0.4 (0.9-2); BUN Creatinine Ratio 35.2 (10-20); Bilirubin,Total 0.3 mg/dl (0.2-1); Calcium 9.4 mg/dl (8.5-10.1); Creatinine Clr Calc Pharmacy 62.5 ml/min; Est GFR (African American) 64.7 ml/min; Est GFR (Non-African American) 55.8 ml/min; Globulin 4.9 gm/dl (2.5-4.0); Potassium 5.1 mmol/L (3.5-5.1); Total Protein 6.9 gm/dl (6.4-8.2); Troponin I 0.028 ng/ml (0-0.045)
[2021-10-18] MEDS ORDERED: OPTIRAY 320 125ml IV ONE (17:52)
[2021-10-18 17:53] LABS: Beta-Hydroxybutyrate 5.97 mg/dl (0.2-2.81)
[2021-10-18 18:20] LABS: Influenza A virus by PCR Negative (Neg); Influenza B virus by PCR Negative (Neg); RSV by PCR Negative (Neg); SARS CoV2 RNA(COVID-19) InHosp NEGATIVE (Negative)
--- NOTE | 2021-10-18 18:24 | CT Scan Report ---
CT angio chest PE protocol CT DOSE: 846.82 mGy.cm HISTORY: 76 years-old Male with Chest Pain, eval for PE. Acute chest pain with shortness of breath TECHNIQUE: Multiple CTA images of the chest were obtained after the intravenous administration of 120 ml Optiray. Coronal and sagittal MIPS were obtained from the axial data set and were submitted for review. All measurements were obtained according to NASCET criteria. A dose lowering technique was u tilized adhering to the principles of ALARA. COMPARISON: Chest radiograph of same day, CTA chest 09/26/2021 FINDINGS: CTA: The heart is mildly enlarged. There is mild mass effect the heart secondary to a large left pleural e ffusion has described below. Prior median sternotomy and CABG. Extensive [place] coronary artery calci fications. Atherosclerosis of the aorta with patency of the imaged great vessels. The segmental and s ubsegmental pulmonary arterial branches are suboptimally visualized secondary to respiratory motion a rtifact, notably within the right lung base. No pulmonary emboli are identified. CT CHEST: No thyroid nodule. Numerous pathologically enlarged mediastinal and bilateral hilar lymph nodes redem onstrated without significant change from prior. Pathologic periesophageal and pericardial lymph node s are also unchanged. Large left pleural effusion. Pleural thickening and enhancement of the left hemithorax has progressed from prior with mild soft tissue nodularity. There is complete consolidation with volume loss of the left lung. Mucous plugging of the left mainstem bronchus with opacification of the left upper and lo wer lobe bronchi. Obscuration of the previously described suspicious left upper lobe nodule. Trace ri ght pleural effusion. Respiratory motion artifact limits the study. Subpleural nodules throughout the right lung redemonstrated sebaceous for metastatic disease. Some of these appear to have mildly incr eased in size. Groundglass densities are noted throughout the right lung. No acute process of the imaged upper abdomen. Hepatic steatosis. Unremarkable soft tissues. No acute fracture or suspicious bone lesion is identified. IMPRESSION: 1. Study is degraded by respiratory motion artifact. No pulmonary emboli are identified. 2. Large left pleural effusion has increased in size from 09/26/2021. Additionally, there is mild ass ociated pleural thickening. Findings are suggestive of a malignant pleural effusion with possible ple ural metastatic disease. Superimposed infection could appear similarly. 3. Complete consolidation of the left lung with left-sided bronchial mucous plugging and opacificatio n. 4. Trace right pleural effusion. 5. Numerous pathologic lymph nodes of the chest, most pronounced within the mediastinal and hilar dis tributions are redemonstrated suggestive of lymphatic metastatic disease. 6. Scattered right-sided pulmonary nodules suggestive of metastatic disease have increased in size fr om prior. ACT 112: Negative or not required by law. The above report was generated using voice recognition software. It may contain grammatical, syntax o r spelling errors. Electronically signed by: Ruddy Ibanez M.D. 10/18/2021 6:23 PM
--- NOTE | 2021-10-18 19:31 | History & Physical Report ---
Date of Service October 18, 2021 History of Present Illness Primary Care Provider: ROBERT Espinal Dion Sky is a 76 year old male who presents to the ER with hemoptysis. Allergies Allergy/AdvReac Type Severity Reaction Status Date / Time Sulfa (Sulfonamide Allergy Mild Rash Verified 10/18/21 16:25 Antibiotics) sulfamethoxazole Allergy Mild Rash Verified 10/18/21 16:25 [From Bactrim] trimethoprim [From Bactrim] Allergy Mild Rash Verified 10/18/21 16:25 codeine AdvReac Mild Nausea/"wild Verified 10/18/21 16:25 dreams" Home Medications Medication Instructions Recorded Confirmed Type aspirin 325 mg tablet (Filiberto 325 mg PO QAM 05/04/19 10/18/21 History Aspirin) cyanocobalamin (vitamin B-12) 1,000 mcg PO QAM 08/09/20 10/18/21 History 1,000 mcg tablet (Vitamin B-12) insulin syringe-needle U-100 0.5 #600 ea 10/10/20 10/10/21 Rx mL 31 gauge x 5/16" (BD Insulin Syringe Ultra-Fine) metformin 850 mg tablet 850 mg PO TID #270 tab 10/19/20 10/18/21 Rx trazodone 100 mg tablet 100 mg PO HS #30 tab 02/13/21 10/18/21 Rx insulin regular human 100 unit/mL 35 unit SQ TID 30 Days #40 ml 03/24/21 10/18/21 Rx injection solution (Novolin R Regular U-100 Insulin) amlodipine 10 mg tablet (Norvasc) 10 mg PO QAM 07/28/21 10/18/21 History empagliflozin 10 mg tablet 10 mg PO QAM 07/28/21 10/18/21 History (Jardiance) famotidine 10 mg tablet (Acid 10 mg PO QAM 07/28/21 10/18/21 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)) fluoxetine 20 mg capsule (Prozac) 20 mg PO QAM 07/28/21 10/18/21 History losartan 100 mg tablet (Cozaar) 100 mg PO QAM 07/28/21 10/18/21 History clopidogrel 75 mg tablet (Plavix) 75 mg PO QAM #90 tab 08/31/21 10/18/21 Rx simvastatin 80 mg tablet (Zocor) 80 mg PO HS #90 tab 08/31/21 10/18/21 Rx insulin glargine 100 unit/mL 60 unit SQ BID #11 vial 09/05/21 10/18/21 Rx subcutaneous solution (Lantus U-100 Insulin) Oxygen Home #3 l 09/29/21 10/10/21 Rx digoxin 250 mcg (0.25 mg) tablet 250 mcg PO DAILY@1600 #30 tab 09/29/21 10/18/21 Rx furosemide 40 mg tablet 40 mg PO BID #60 tab 10/13/21 10/18/21 Rx doxazosin 1 mg tablet 1 mg PO HS 10/18/21 10/18/21 History metoprolol tartrate 50 mg tablet 75 mg PO BID 10/18/21 10/18/21 History Past Med/Surg History Medical History Acid reflux disease Anxiety Atrial fibrillation CAD (coronary artery disease) Chronic kidney disease, stage II (mild) Depression Diabetic nephropathy Diabetic peripheral neuropathy Diabetic retinopathy DM (diabetes mellitus), type 2 Hypercholesterolemia Hypertension Hyponatremia PAD (peripheral artery disease) Prostate CA Treated with surgery and then radiation in 2001 Stage 2 chronic kidney disease Type 2 diabetes mellitus with stage 2 chronic kidney disease and hypertension Uncontrolled type 2 diabetes mellitus with neurologic complication, with long- term current use of insulin Surgical History History of angiography With right iliac stent placement History of appendectomy [place] cardiac [place] [facility] [place] History of colonoscopy History of heart artery stent 1996--1 stent History of lumbar discectomy History of prostate biopsy malignant History of radical prostatectomy 2001 History of tooth extraction full upper denture History of wisdom tooth extraction S/P CABG x 3 d/t CAD 2006 [place] [facility] [place]follows with Dr. Small Family History Father Myocardial infarction Mother Myocardial infarction Family history of diabetes mellitus Sister Family history of diabetes mellitus Other No family history of adverse response to anesthesia Prostate cancer Denies family history of Ovarian cancer Breast cancer Colorectal cancer Social History Smoking Status: Former smoker Tobacco Type: Cigarettes Number of Years Since Quit: 21; Second Hand Exposure: No; Hx Alcohol Use: Yes Alcohol type: beer Alcohol Intake Frequency: 2-4 x/Month Hx Substance Use: No Preferred Language: Martiniquais Communication Ability: Effective Manager Transportation Planning Required: No Beliefs That Will Affect Care: None marital status: Current Living Situation: Spouse current occupational status: retired How many Children do You have: 2 Feels Safe at Home: Yes Childhood Exposure to Second-Hand Smoke: No caffeine: Yes Dental Care, Regularly: Yes Physical Activity Frequency: 1-2 Times per Week Seatbelt Use: always Sunscreen Use: No Assistive Devices: Cane, Denture - Upper, Glasses and Oxygen - Continuous Results & Data Results & Data ([facility]) Vital Signs (Past 12 Hours) Vital Signs Temp Pulse Resp BP Pulse Ox 10/18/21 16:34 90 20 98 10/18/21 16:21 36.5 C 94 H 20 116/61 97 PG Care Time/CCT Total # of Minutes Spent Total Time Spent with Patient: Total time spent is greater than 50% in coordination of care (as documented) at patient's floor/unit and/or counseling patient: Coding
[2021-10-18] MEDS ORDERED: NovoLIN-R INSULIN PER UNIT CHARGE IV STA (19:35)
[2021-10-18] MEDS ORDERED: MoRPHine SULFATE 4 MG/ML 1 ML CARP\\VIAL IV STA (19:35)
[2021-10-18] MEDS ORDERED: ONDANSETRON INJ 2 MG/ML 2 ML VIAL IV STA (19:35)
--- NOTE | 2021-10-18 22:27 | History & Physical Report ---
Date of Service October 18, 2021 Assessment & Plan (1) Acute respiratory failure with hypoxia: Plan: 76 year old male PMHx recent diagnosis metastatic adenocarcinoma, prostate cancer s/p prostatectomy, HTN, GERD, HLD, PAD, CAD s/p CABG on Plavix admitted for hemoptysis with pleural effusion. Acute respiratory failure with hypoxia: -Recent diagnosis of metastatic adenocarcinoma from 09/28/21. Seen by Dr. Damon. -CXR: Complete opacification left hemithorax. -CT Abd/pelv: Large left pleural effusion, increased in size from 09/26/21, mild associated pleural thickening. -EKG without ST elevations or depressions. -Most likely 2/2 metastatic adenocarcinoma vs pulmonary infection. -WBC 14.05. Ordered blood cultures, started empiric vancomycin and pip/tazo for possible lung infection. -Flutter valve for mucous plugging, duoneb PRN. -Continue to monitor vitals, AM CBC. -Consulted pulmonology. Uncontrolled type 2 diabetes mellitus: -Glucose 358 on arrival. -Repeat after 12 units lantus BSG 244. -Kept patient on home regimen of lantus 60 units bid, sliding scale PRN. -ACHS BSG checks. Hyponatremia: -Sodium 133 on entry, corrected to 139 given hyperglycemia. -Continue to monitor, AM BMP. Hyperkalemia: -Potassium of 5.2 on entry, most likely 2/2 dehydration. -Continue to monitor, AM BMP. Atrial fibrillation: -EKG on entry atrial fibrillation pattern. HR in 80's to 100's. -Continue home metoprolol tartrate 75mg BID. -Continue home Plavix, on heparin. -Continue to monitor symptoms and telemetry. Metastatic adenocarcinoma: -Cytology from pleural fluid 09/27/21 showed evidence of metastatic adenocarcinoma. -CT Abd/Pelv suggestive of lymphatic metastatic disease, scattered right sided pulmonary nodules suggestive of metastatic disease with increase in size from prior study. -Most likely cause of large pleural effusion. -Consulted pulmonology for possible fluid drainage. HTN: -Continue metoprolol tartrate, losartan. Monitor vitals. History of Prostate Cancer: -Continue doxazosin home regimen. Depression: -Continue Prozac home regimen. Dispo: Med/Surg Tele DVT Prophylaxis: Heparin Code Status: Full code. (2) Uncontrolled type 2 diabetes mellitus with neurologic complication, with long-term current use of insulin: (3) Lung cancer: (4) Atrial fibrillation: (5) Prostate CA: History of Present Illness Primary Care Provider: ROBERT Espinal 76 year old male with past medical history of recent diagnosis of metastatic adenocarcinoma 09/28/21, prostate cancer s/p prostatectomy, HTN, GERD, HLD, PAD, CAD s/p CABG on Plavix who came in to the ED for hemoptysis for the past 12 hours. Patient was previously admitted for pleural effusion thought to be due to metastatic disease. At the time cytology for the pleural effusion revealed malignant cells consistent with metastatic adenocarcinoma. Patient had seen Dr. Damon to go over the results and she had told him this was possibly related to upper GI or stomach metastasis. Prior to that admission patient had developed increased dyspnea on exertion and swelling in his bilateral lower extremities. Symptoms to the last admission are similar except for the addition of hemoptysis the patient first noticed at 11:00 today. He said he coughed up bloody sputum the size of his thumb at the first occurrence. He had a few more occurrences of bloody sputum that were smaller in size after that. He called his PCP to get an opinion on what to do and his PCP told him to come into the ER for further analysis and treatment. Patient has not had any fevers, chills, nausea, vomiting, chest pain. He does endorse a cough with sputum production that is usually clear to yellow in color, decreased inspiratory volume, increased fatigue, and generalized weakness. His weakness has been so bad he recently had a fall for which when he tried to stand up he fell down from weak knees (no head injury or syncope was experienced). He does have a past history of smoking for ~20 years, 2 packs per day (40 pack year history), and endorses he quit 23 years ago. He denies any history of diagnosed COPD or emphysema but does require home oxygen. Allergies Allergy/AdvReac Type Severity Reaction Status Date / Time Sulfa (Sulfonamide Allergy Mild Rash Verified 10/18/21 16:25 Antibiotics) sulfamethoxazole Allergy Mild Rash Verified 10/18/21 16:25 [From Bactrim] trimethoprim [From Bactrim] Allergy Mild Rash Verified 10/18/21 16:25 codeine AdvReac Mild Nausea/"wild Verified 10/18/21 16:25 dreams" Home Medications Medication Instructions Recorded Confirmed Type aspirin 325 mg tablet (Filiberto 325 mg PO QAM 05/04/19 10/18/21 History Aspirin) cyanocobalamin (vitamin B-12) 1,000 mcg PO QAM 08/09/20 10/18/21 History 1,000 mcg tablet (Vitamin B-12) insulin syringe-needle U-100 0.5 #600 ea 10/10/20 10/10/21 Rx mL 31 gauge x 5/16" (BD Insulin Syringe Ultra-Fine) metformin 850 mg tablet 850 mg PO TID #270 tab 10/19/20 10/18/21 Rx trazodone 100 mg tablet 100 mg PO HS #30 tab 02/13/21 10/18/21 Rx insulin regular human 100 unit/mL 35 unit SQ TID 30 Days #40 ml 03/24/21 10/18/21 Rx injection solution (Novolin R Regular U-100 Insulin) amlodipine 10 mg tablet (Norvasc) 10 mg PO QAM 07/28/21 10/18/21 History empagliflozin 10 mg tablet 10 mg PO QAM 07/28/21 10/18/21 History (Jardiance) famotidine 10 mg tablet (Acid 10 mg PO QAM 07/28/21 10/18/21 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)) fluoxetine 20 mg capsule (Prozac) 20 mg PO QAM 07/28/21 10/18/21 History losartan 100 mg tablet (Cozaar) 100 mg PO QAM 07/28/21 10/18/21 History clopidogrel 75 mg tablet (Plavix) 75 mg PO QAM #90 tab 08/31/21 10/18/21 Rx simvastatin 80 mg tablet (Zocor) 80 mg PO HS #90 tab 08/31/21 10/18/21 Rx insulin glargine 100 unit/mL 60 unit SQ BID #11 vial 09/05/21 10/18/21 Rx subcutaneous solution (Lantus U-100 Insulin) Oxygen Home #3 l 09/29/21 10/10/21 Rx digoxin 250 mcg (0.25 mg) tablet 250 mcg PO DAILY@1600 #30 tab 09/29/21 10/18/21 Rx furosemide 40 mg tablet 40 mg PO BID #60 tab 10/13/21 10/18/21 Rx doxazosin 1 mg tablet 1 mg PO HS 10/18/21 10/18/21 History metoprolol tartrate 50 mg tablet 75 mg PO BID 10/18/21 10/18/21 History Past Med/Surg History Medical History Acid reflux disease Anxiety Atrial fibrillation CAD (coronary artery disease) Chronic kidney disease, stage II (mild) Depression Diabetic nephropathy Diabetic peripheral neuropathy Diabetic retinopathy DM (diabetes mellitus), type 2 Hypercholesterolemia Hypertension Hyponatremia Lung cancer Malignant pleural effusion with metastatic adenocarcinoma PAD (peripheral artery disease) Pleural effusion Malignant pleural effusion with metastatic adenocarcinoma. Diagnostic centesis performed 09/26/2021 Prostate CA Treated with surgery and then radiation in 2001 Stage 2 chronic kidney disease Type 2 diabetes mellitus with stage 2 chronic kidney disease and hypertension Uncontrolled type 2 diabetes mellitus with neurologic complication, with long- term current use of insulin Surgical History History of angiography With right iliac stent placement History of appendectomy History of cardiac cath 1996 @ [facility] [place] 1 stent placed History of colonoscopy History of heart artery stent 1996--1 stent History of lumbar discectomy History of prostate biopsy malignant History of radical prostatectomy 2001 History of tooth extraction full upper denture History of wisdom tooth extraction S/P CABG x 3 d/t CAD 2006 @ [facility] [place]follows with Dr. Small Family History Father Myocardial infarction Mother Myocardial infarction Family history of diabetes mellitus Sister Family history of diabetes mellitus Other No family history of adverse response to anesthesia Prostate cancer Denies family history of Ovarian cancer Breast cancer Colorectal cancer Social History Smoking Status: Former smoker Tobacco Type: Cigarettes Number of Years Since Quit: 21; Second Hand Exposure: No; Do You Dip or Chew Tobacco: No; Tobacco Cessation Education Requested by Patient: No Hx Alcohol Use: Yes Alcohol type: beer Alcohol Intake Frequency: 2-4 x/Month Hx Substance Use: No Preferred Language: Greenlandic Communication Ability: Effective Mine 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 Required: No Beliefs That Will Affect Care: None marital status: Current Living Situation: Spouse current occupational status: retired How many Children do You have: 2 Other Information That Helps Us Care for You: No Feels Safe at Home: Yes Safety Concerns: Feels Safe At This Time Childhood Exposure to Second-Hand Smoke: No caffeine: Yes Dental Care, Regularly: Yes Physical Activity Frequency: 1-2 Times per Week Seatbelt Use: always Sunscreen Use: No Assistive Devices: Oxygen - Continuous Assistive Devices Comment: pt uses cane, wheelchair or walker at home Review of Systems Constitutional: + fatigue and + weakness Respiratory: + cough, + change in sputum and + hemoptysis Cardiovascular: + palpitations Gastrointestinal: + diarrhea/loose stools Genitourinary: + urinary incontinence (patient has required use of diapers for past year or two due to urinary incontinence. ) Physical Exam Constitutional: + ill appearing and + obese Eyes: PERRL, conjunctivae normal, anicteric sclerae Respiratory: Diminished lung sounds on the left, clear to auscultation on right. Patient with limited deep inspiration. Cardiovascular: Rate/Rhythm: + irregularly irregular Extremities: + pedal edema (2+ pitting edema bilaterally) Chest (Breasts): Additional Comments: Right chest mildly raised compared to left. Gastrointestinal (Abdomen): normal bowel sounds, soft, nontender, no hepatosplenomegaly Results & Data Results & Data ([facility]) Vital Signs (Past 12 Hours) Vital Signs Temp Pulse Resp BP Pulse Ox 10/18/21 16:34 90 20 98 10/18/21 16:21 36.5 C 94 H 20 116/61 97 Code Status & VTE Plan VTE Prophylaxis Plan VTE Prophylaxis will be ordered: Yes Supervising Physician Co-Signing Physician Notes Attending addendum: I have physically seen this patient, have supervised the medical residents activities, and agree with the H&P unless as otherwise noted. Assessment and Plan: Acute respiratory failure with hypoxia/progressive to complete opacification left hemithorax- Likely secondary to progressive malignant pleural effusion with possible underlying infection Empiric vancomycin and Zosyn IV Flutter valve Duonebs every 4 hours while awake and every 2 hours when necessary. Consult pulmonology Diabetes mellitus- Glucose 358 upon arrival Was given 12 units of regular insulin IV with improvement to [address] on Accu-Cheks before meals and at bedtime with NovoLog coverage per scale Remaining orders and notations as noted Resident Activity Tracking Resident Involvement: Resident Care Provided Care Provided: Adult [facility]
[2021-10-18] MEDS ORDERED: SODIUM CHLORIDE 0.9% 1000ML 500 ML IV ONE (23:04)
[2021-10-18] MEDS ORDERED: ACETAMINOPHEN 325 MG TAB PO PRN (23:19)
[2021-10-19] MEDS ORDERED: INSULIN GLARGINE SOLOSTAR 100 UNITS/ML 3 ML PEN SC ONE
[2021-10-19] MEDS: MoRPHine SULFATE 2 MG/ML CARP IV PRN ×6 (00:09→20:59)
[2021-10-19] MEDS ORDERED: PIPERACILL/TAZOBAC CONSULT ACTIVE PRN (03:42)
[2021-10-19] MEDS ORDERED: VANCOMYCIN CONSULT ACTIVE PRN (03:42)
[2021-10-19] MEDS ORDERED: CARBOHYDRATES FOR HYPOGLYCEMIA PO PRN (04:26)
[2021-10-19] MEDS ORDERED: GLUCOSE 10 TABS/TUBE PO PRN (04:26)
[2021-10-19] MEDS ORDERED: DEXTROSE 50% 50 ML SYRINGE IV PRN (04:26)
[2021-10-19] MEDS ORDERED: GLUCOSE 40% GEL 15 GM TUBE PO PRN (04:26)
[2021-10-19] MEDS ORDERED: GLUCAGON FOR INJ 1 MG VIAL SQ PRN (04:26)
[2021-10-19] MEDS ORDERED: VANCOMYCIN HCL 2,500 MG in SODIUM CHLORIDE 0.9% 500 ML IV ONE (04:30)
[2021-10-19] MEDS ORDERED: PIPERACILLIN/TAZOBACTAM 4.5 GM in 0.9 % SODIUM CHLORIDE 100 ML IV ONE (04:45)
[2021-10-19 05:25] LABS: Basophils # (auto) 0.01 K/uL (0-0.2); Basophils % (auto) 0.1 %; Eosinophils # (auto) 0.03 K/uL (0-0.5); Eosinophils % (auto) 0.2 %; Hematocrit (blood only) 41.4 % (42-52); Hemoglobin 12.7 g/dL (14.0-18.0); Immature Granulocytes % (auto) 0.6 %; Lymphocytes # (auto) 0.51 K/uL (1.2-3.4); Lymphocytes % (auto) 3.3 %; Mean Corpuscular Hemoglobin 27.6 pg (25-34); Mean Corpuscular Hgb Conc 30.7 g/dL (32-36); Mean Platelet Volume 8.3 fL (7.4-10.4); Monocytes # (auto) 1.89 K/uL (0.11-0.59); Monocytes % (auto) 12.1 %; Neutrophils # (auto) 13.06 K/uL (1.4-6.5); Neutrophils % (auto) 83.7 %; Platelet Count 566 K/uL (130-400); RDW Coefficient of Variation 15.3 % (11.5-14.5); RDW Standard Deviation 50.4 fL (36.4-46.3)
[2021-10-19 05:42] LABS: BUN Creatinine Ratio 36.5 (10-20); Calcium 9.4 mg/dl (8.5-10.1); Creatinine Clr Calc Pharmacy 70.9 ml/min; Est GFR (African American) 75.4 ml/min; Est GFR (Non-African American) 65.1 ml/min; Potassium 5.2 mmol/L (3.5-5.1)
--- NOTE | 2021-10-19 07:11 | Hospitalist Progress Note ---
Date of Service October 19, 2021 Assessment & Plan (1) Acute respiratory failure with hypoxia: Plan: 76 year old male PMHx recent diagnosis metastatic adenocarcinoma, prostate cancer s/p prostatectomy, HTN, GERD, HLD, PAD, CAD s/p CABG on Plavix admitted for hemoptysis with pleural effusion. Acute respiratory failure with hypoxia: Recent diagnosis of metastatic adenocarcinoma from 09/28/21. Seen by Dr. Damon. CXR: Complete opacification left hemithorax. CT Abd/pelv: Large left pleural effusion, increased in size from 09/26/21, mild associated pleural thickening. -Most likely 2/2 metastatic adenocarcinoma vs pulmonary infection. -WBC 14.05.->15 -Cx pending -started empiric vancomycin and pip/tazo for possible lung infection. -Flutter valve for mucous plugging, duoneb PRN. -Continue to monitor vitals, AM CBC. -Consulted pulmonology -Recommending placement of Pleurx catheter, patient plans undergo procedure later today -Any treatment at present will be palliative Metastatic adenocarcinoma: Cytology from pleural fluid 09/27/21 showed evidence of metastatic adenocarcinoma primary thought to be upper GI. CT Abd/Pelv suggestive of lymphatic metastatic disease, scattered right sided pulmonary nodules suggestive of metastatic disease with increase in size from prior study. -Most likely cause of large pleural effusion. -Consulted pulmonology appreciate recs -Consulted Heme/Onc appreciate recs Uncontrolled type 2 diabetes mellitus: -Glucose 358 on arrival. Repeat after 12 units lantus BSG 244. -Kept patient on home regimen of lantus 60 units bid, sliding scale PRN. -ACHS BSG checks. -BSG 182 am 10/19 Electrolyte imbalances: -Sodium 133 on entry, corrected to 139 given hyperglycemia. -Potassium of 5.2 on entry, most likely 2/2 dehydration. -Continue to monitor, AM BMP. Atrial fibrillation: EKG on entry atrial fibrillation pattern. HR in 80's to 100's. -Continue home metoprolol tartrate 75mg BID. -Continue home Plavix, on heparin. -Continue to monitor symptoms and telemetry. -EKG with chest pain HTN: -Continue metoprolol tartrate, losartan. Monitor vitals. History of Prostate Cancer: -Continue doxazosin home regimen. Depression: -Continue Prozac home regimen. FENa:DM2 Code Status:full code DVT PPX:Heparin PT/OT:consulted Case Management:consulted Dispo:Tele Rolando Almeida MD PGY 3, FCM This chart was completed utilizing [employer] voice recognition software. Grammatical errors, random word insertions, pronoun errors, and in complete sentences are an occasional consequence of the system. Any questions or concerns about the content, text, or information contained within the body of this dictation should be addressed directly to the physician for clarification. (2) Uncontrolled type 2 diabetes mellitus with neurologic complication, with long-term current use of insulin: (3) Lung cancer: (4) Atrial fibrillation: (5) Prostate CA: Admission and Anticipated Discharge Date Admission Date: October 18, 2021 Supervising Physician Co-Signing Physician Notes Patient seen and examined, chart reviewed, case discussed with Dr. Almeida and I agree with the assessment and plan as above except as otherwise noted 76-year-old male with a history of pleural effusion with prior diagnostic thoracentesis showing adenocarcinoma of unknown primary, suspicious for GI origin on pathology. Patient reports he is nervous about pain with the upcoming Pleurx placement. He notes that he present to the hospital with diarrhea, but does endorse that he has had shortness of breath for 1 week which has not changed much and with increased weakness. on admit found to have a malignant left pleural effusion with near complete whiteout of left hemithorax. CTA with no signs of pulmonary emboli. Pulmonary consulted. Undergoing Pleurx catheter placement this afternoon. On assessment patient is lying in bed, chronically ill but nontoxic-appearing. C hest rise symmetrical, on nasal cannula oxygen. Left breath sounds near absent. Pulse with irregular rhythm, normal rate. Moves all extremities equally. Acute respiratory failure with hypoxia: Suspect due to severe malignant effusion, Pleurx catheter pending. Continue antibiotics at this time. Adenocarcinoma: Diagnosed 09/26/21: Given extensive disease and metastasis patient appropriate for palliative. Follows with Dr. Damon. Patient is been evaluated for palliative radiation for mediastinal lung mass due to compression and follow-up PET/CT as outpatient. Patient appropriate candidate for ch emotherapy, may be a candidate for palliative chemotherapy, palliative radiation. DM: As above A. fib: Adequately rate controlled at this time, continue medications as above Diarrhea: No inflammatory change of Mesentery appreciated. Homogenous attenuation of pancreatic parenchyma and interval development of pancreatic cyst of 1.8 cm, patient not able to lay flat to tolerate a MRI at this time. On consulted for this and adenocarcinoma as above. pending additional goals of care discussion, patient reports his goal at this time are to get better enough to be considered for at least palliative chemotherapy. Subjective Patient lying in bed this morning in no acute distress. Relate a history is similar to that described in the H&P. Patient has no significant complaints at present with the exception of right-sided lower back pain. He denies any recent chest pressure chest pain nausea or vomiting fevers or chills. Patient reports he has been tolerating his diet, voiding and stooling, sleeping well. Acute concerns relate to underlying condition and Pleurx catheter placement versus thoracocentesis. Physical Exam Physical Exam: General: Lying in bed in no acute distress HEENT: Normocephalic atraumatic Neck: Normal to visual inspection Cardiac: Irregularly irregular rhythm, 1+ pedal edema bilaterally Respiratory: Diminished lung sounds on the left, deep inspiration is limited, symmetrical chest expansion, no respiratory distress GI: Distended abdomen is, soft, nontender, bowel sounds present MSK: Reports weakness Neuro: Alert and oriented x4 Psych: Calm and cooperative with interview Results & Data Results & Data ([facility]) Vital Signs (Past 12 Hours) Vital Signs Pulse Resp BP Pulse Ox Pulse Ox 10/19/21 06:07 98 10/19/21 06:00 86 L 10/19/21 04:26 103 H 20 144/85 H 4 L 10/18/21 22:35 95 H 19 131/68 93 10/18/21 20:35 19 96 10/18/21 19:55 87 17 116/61 97 Laboratory Results 10/19/21 10/19/21 10/18/21 Range/Units 05:05 05:05 22:07 WBC 15.60 H (4.8-10.8) K/uL RBC 4.60 L (4.7-6.1) M/uL Hgb 12.7 L (14.0-18.0) g/dL POC Hgb (14.0-18.0) g/dl Hct 41.4 L (42-52) % POC Hct (42-52) % MCV 90.0 (80-100) fL MCH 27.6 (25-34) pg MCHC 30.7 L (32-36) g/dL RDW Std Deviation 50.4 H (36.4-46.3) fL RDW Coeff of Shlomo 15.3 H (11.5-14.5) % Plt Count 566 H (130-400) K/uL MPV 8.3 (7.4-10.4) fL Immature Gran % (Auto) 0.6 % Neut % (Auto) 83.7 % Lymph % (Auto) 3.3 % Greene % (Auto) 12.1 % Eos % (Auto) 0.2 % Baso % (Auto) 0.1 % Neut # (Auto) 13.06 H (1.4-6.5) K/uL Lymph # (Auto) 0.51 L (1.2-3.4) K/uL Greene # (Auto) 1.89 H (0.11-0.59) K/uL Eos # (Auto) 0.03 (0-0.5) K/uL Baso # (Auto) 0.01 (0-0.2) K/uL Immature Gran # (Auto) 0.10 H (0.00-0.02) K/uL PT (9.0-12.0) Seconds INR (0.9-1.1) APTT (21.0-31.0) Seconds PTT Ratio POC Sodium (135-144) mmol/L Sodium 135 L (136-145) mmol/L POC Potassium (3.3-5.0) mmol/L Potassium 5.2 H (3.5-5.1) mmol/L POC Chloride (101-112) mmol/L Chloride 99 (98-107) mmol/L Carbon Dioxide 29 (21-32) mmol/L POC Total CO2 (24-31) mmol/L Anion Gap 7.0 (3-11) POC Anion Gap (16-25) mmol/L POC BUN (7-18) mg/dl BUN 41 H (7-18) mg/dl Creatinine 1.11 (0.6-1.4) mg/dl POC Creatinine (0.6-1.3) mg/dl Est Cr Clr Drug Dosing 70.9 ml/min Est GFR ( Amer) 75.4 ml/min Est GFR (Non-Af Amer) 65.1 ml/min BUN/Creatinine Ratio 36.5 H (10-20) Glucose 182 H (70-99) mg/dl POC Glucose 244 H (70-99) mg/dl POC Glucose (other) (70-99) mg/dl Calcium 9.4 (8.5-10.1) mg/dl POC Ioniz Calcium Luz (1.12-1.32) mmol/l Total Bilirubin (0.2-1) mg/dl AST (15-37) U/L ALT (12-78) Alkaline Phosphatase (45-117) U/L Troponin I (0-0.045) ng/ml Total Protein (6.4-8.2) gm/dl Albumin (3.4-5.0) gm/dl Globulin (2.5-4.0) gm/dl Albumin/Globulin Ratio (0.9-2) Lipase (73-393) U/L Beta-Hydroxybutyric Acd (0.2-2.81) mg/dl Digoxin (0.8-2.0) ng/ml SARS-CoV-2 (PCR) (Negative) Influenza Type A (PCR) (Neg) Influenza Type B (PCR) (Neg) RSV (RT-PCR) (Neg) Blood Type Antibody Screen 10/18/21 10/18/21 10/18/21 Range/Units 17:30 17:12 16:55 WBC (4.8-10.8) K/uL RBC (4.7-6.1) M/uL Hgb (14.0-18.0) g/dL POC Hgb 13.9 L (14.0-18.0) g/dl Hct (42-52) % POC Hct 41 L (42-52) % MCV (80-100) fL MCH (25-34) pg MCHC (32-36) g/dL RDW Std Deviation (36.4-46.3) fL RDW Coeff of Shlomo (11.5-14.5) % Plt Count (130-400) K/uL MPV (7.4-10.4) fL Immature Gran % (Auto) % Neut % (Auto) % Lymph % (Auto) % Greene % (Auto) % Eos % (Auto) % Baso % (Auto) % Neut # (Auto) (1.4-6.5) K/uL Lymph # (Auto) (1.2-3.4) K/uL Greene # (Auto) (0.11-0.59) K/uL Eos # (Auto) (0-0.5) K/uL Baso # (Auto) (0-0.2) K/uL Immature Gran # (Auto) (0.00-0.02) K/uL PT 11.9 (9.0-12.0) Seconds INR 1.2 H (0.9-1.1) APTT 30.5 (21.0-31.0) Seconds PTT Ratio 1.2 POC Sodium 133 L (135-144) mmol/L Sodium (136-145) mmol/L POC Potassium 5.2 H (3.3-5.0) mmol/L Potassium (3.5-5.1) mmol/L POC Chloride 97 L (101-112) mmol/L Chloride (98-107) mmol/L Carbon Dioxide (21-32) mmol/L POC Total CO2 23 L (24-31) mmol/L Anion Gap (3-11) POC Anion Gap 19.0 (16-25) mmol/L POC BUN 42 H (7-18) mg/dl BUN (7-18) mg/dl Creatinine (0.6-1.4) mg/dl POC Creatinine 1.0 (0.6-1.3) mg/dl Est Cr Clr Drug Dosing ml/min Est GFR ( Amer) ml/min Est GFR (Non-Af Amer) ml/min BUN/Creatinine Ratio (10-20) Glucose (70-99) mg/dl POC Glucose (70-99) mg/dl POC Glucose (other) 369 H* (70-99) mg/dl Calcium (8.5-10.1) mg/dl POC Ioniz Calcium Luz 1.08 L (1.12-1.32) mmol/l Total Bilirubin (0.2-1) mg/dl AST (15-37) U/L ALT (12-78) Alkaline Phosphatase (45-117) U/L Troponin I (0-0.045) ng/ml Total Protein (6.4-8.2) gm/dl Albumin (3.4-5.0) gm/dl Globulin (2.5-4.0) gm/dl Albumin/Globulin Ratio (0.9-2) Lipase (73-393) U/L Beta-Hydroxybutyric Acd (0.2-2.81) mg/dl Digoxin (0.8-2.0) ng/ml SARS-CoV-2 (PCR) NEGATIVE (Negative) Influenza Type A (PCR) Negative (Neg) Influenza Type B (PCR) Negative (Neg) RSV (RT-PCR) Negative (Neg) Blood Type Antibody Screen 10/18/21 10/18/21 10/18/21 Range/Units 16:55 16:55 16:55 WBC 14.05 H (4.8-10.8) K/uL RBC 4.43 L (4.7-6.1) M/uL Hgb 12.3 L (14.0-18.0) g/dL POC Hgb (14.0-18.0) g/dl Hct 39.4 L (42-52) % POC Hct (42-52) % MCV 88.9 (80-100) fL MCH 27.8 (25-34) pg MCHC 31.2 L (32-36) g/dL RDW Std Deviation 49.4 H (36.4-46.3) fL RDW Coeff of Shlomo 15.2 H (11.5-14.5) % Plt Count 574 H (130-400) K/uL MPV 8.4 (7.4-10.4) fL Immature Gran % (Auto) 0.9 % Neut % (Auto) 85.2 % Lymph % (Auto) 3.4 % Greene % (Auto) 10.3 % Eos % (Auto) 0.1 % Baso % (Auto) 0.1 % Neut # (Auto) 11.97 H (1.4-6.5) K/uL Lymph # (Auto) 0.48 L (1.2-3.4) K/uL Greene # (Auto) 1.45 H (0.11-0.59) K/uL Eos # (Auto) 0.02 (0-0.5) K/uL Baso # (Auto) 0.01 (0-0.2) K/uL Immature Gran # (Auto) 0.12 H (0.00-0.02) K/uL PT (9.0-12.0) Seconds INR (0.9-1.1) APTT (21.0-31.0) Seconds PTT Ratio POC Sodium (135-144) mmol/L Sodium 133 L (136-145) mmol/L POC Potassium (3.3-5.0) mmol/L Potassium 5.1 (3.5-5.1) mmol/L POC Chloride (101-112) mmol/L Chloride 97 L (98-107) mmol/L Carbon Dioxide 26 (21-32) mmol/L POC Total CO2 (24-31) mmol/L Anion Gap 10.0 (3-11) POC Anion Gap (16-25) mmol/L POC BUN (7-18) mg/dl BUN 44 H (7-18) mg/dl Creatinine 1.26 (0.6-1.4) mg/dl POC Creatinine (0.6-1.3) mg/dl Est Cr Clr Drug Dosing 62.5 ml/min Est GFR ( Amer) 64.7 ml/min Est GFR (Non-Af Amer) 55.8 ml/min BUN/Creatinine Ratio 35.2 H (10-20) Glucose 358 H* (70-99) mg/dl POC Glucose (70-99) mg/dl POC Glucose (other) (70-99) mg/dl Calcium 9.4 (8.5-10.1) mg/dl POC Ioniz Calcium Luz (1.12-1.32) mmol/l Total Bilirubin 0.3 (0.2-1) mg/dl AST 56 H (15-37) U/L ALT 90 H (12-78) Alkaline Phosphatase 127 H (45-117) U/L Troponin I 0.028 (0-0.045) ng/ml Total Protein 6.9 (6.4-8.2) gm/dl Albumin 2.0 L (3.4-5.0) gm/dl Globulin 4.9 H (2.5-4.0) gm/dl Albumin/Globulin Ratio 0.4 L (0.9-2) Lipase 74 (73-393) U/L Beta-Hydroxybutyric Acd 5.97 H (0.2-2.81) mg/dl Digoxin 1.0 (0.8-2.0) ng/ml SARS-CoV-2 (PCR) (Negative) Influenza Type A (PCR) (Neg) Influenza Type B (PCR) (Neg) RSV (RT-PCR) (Neg) Blood Type Antibody Screen 10/18/21 Range/Units 16:55 WBC (4.8-10.8) K/uL RBC (4.7-6.1) M/uL Hgb (14.0-18.0) g/dL POC Hgb (14.0-18.0) g/dl Hct (42-52) % POC Hct (42-52) % MCV (80-100) fL MCH (25-34) pg MCHC (32-36) g/dL RDW Std Deviation (36.4-46.3) fL RDW Coeff of Shlomo (11.5-14.5) % Plt Count (130-400) K/uL MPV (7.4-10.4) fL Immature Gran % (Auto) % Neut % (Auto) % Lymph % (Auto) % Greene % (Auto) % Eos % (Auto) % Baso % (Auto) % Neut # (Auto) (1.4-6.5) K/uL Lymph # (Auto) (1.2-3.4) K/uL Greene # (Auto) (0.11-0.59) K/uL Eos # (Auto) (0-0.5) K/uL Baso # (Auto) (0-0.2) K/uL Immature Gran # (Auto) (0.00-0.02) K/uL PT (9.0-12.0) Seconds INR (0.9-1.1) APTT (21.0-31.0) Seconds PTT Ratio POC Sodium (135-144) mmol/L Sodium (136-145) mmol/L POC Potassium (3.3-5.0) mmol/L Potassium (3.5-5.1) mmol/L POC Chloride (101-112) mmol/L Chloride (98-107) mmol/L Carbon Dioxide (21-32) mmol/L POC Total CO2 (24-31) mmol/L Anion Gap (3-11) POC Anion Gap (16-25) mmol/L POC BUN (7-18) mg/dl BUN (7-18) mg/dl Creatinine (0.6-1.4) mg/dl POC Creatinine (0.6-1.3) mg/dl Est Cr Clr Drug Dosing ml/min Est GFR ( Amer) ml/min Est GFR (Non-Af Amer) ml/min BUN/Creatinine Ratio (10-20) Glucose (70-99) mg/dl POC Glucose (70-99) mg/dl POC Glucose (other) (70-99) mg/dl Calcium (8.5-10.1) mg/dl POC Ioniz Calcium Luz (1.12-1.32) mmol/l Total Bilirubin (0.2-1) mg/dl AST (15-37) U/L ALT (12-78) Alkaline Phosphatase (45-117) U/L Troponin I (0-0.045) ng/ml Total Protein (6.4-8.2) gm/dl Albumin (3.4-5.0) gm/dl Globulin (2.5-4.0) gm/dl Albumin/Globulin Ratio (0.9-2) Lipase (73-393) U/L Beta-Hydroxybutyric Acd (0.2-2.81) mg/dl Digoxin (0.8-2.0) ng/ml SARS-CoV-2 (PCR) (Negative) Influenza Type A (PCR) (Neg) Influenza Type B (PCR) (Neg) RSV (RT-PCR) (Neg) Blood Type O Positive Antibody Screen NEGATIVE Medications Administered Current Inpatient Medications Acetaminophen (Acetaminophen 325 Mg Tab) 650 mg PO TID PRN PRN Reason: pain Stop: 11/17/21 23:18 Albuterol (Albut/Ipratrop 3mg/0.5mg Neb 3 Ml Vial) 3 ml NEB Q6R [facility]; Protocol Stop: 11/18/21 06:59 Aspirin (Aspirin 325 Mg Ectab) 325 mg PO [facility] Stop: 11/18/21 08:59 Last Admin: 10/19/21 07:54 Dose: 325 mg Documented by: Clopidogrel Bisulfate (Clopidogrel Bisulfate 75 Mg Tab) [facility] Stop: 11/18/21 08:59 Last Admin: 10/19/21 07:55 Dose: 75 mg Documented by: Dextrose (Dextrose 50% 50 Ml Syringe) 25 - 50 ml IV UD PRN; Protocol PRN Reason: Hypoglycemia Protocol Stop: 11/18/21 04:25 Digoxin (Digoxin 0.25 Mg Tab) 0.25 mg PO DAILY@1600 [facility] Stop: 11/18/21 15:59 Doxazosin Mesylate (Doxazosin Mesylate 1 Mg Tab) 1 mg PO HS [facility] Stop: 11/18/21 20:59 Famotidine (Famotidine 10 Mg Tablet) 10 mg PO [facility] Stop: 11/18/21 08:59 Last Admin: 10/19/21 07:54 Dose: 10 mg Documented by: Fluoxetine HCl (Fluoxetine Hcl 20 Mg Cap) [facility] Stop: 11/18/21 08:59 Last Admin: 10/19/21 07:53 Dose: 20 mg Documented by: Glucagon (Glucagon For Inj 1 Mg Vial) 1 mg SQ UD PRN; Protocol PRN Reason: Hypoglycemia Protocol Stop: 11/18/21 04:25 Glucose (Glucose 40% Gel 15 Gm Tube) 15 - 30 gm PO UD PRN; Protocol PRN Reason: Hypoglycemia Protocol Stop: 11/18/21 04:25 Glucose (Glucose 10 Tabs/Tube) 4 - 8 tabs PO UD PRN; Protocol PRN Reason: Hypoglycemia Protocol Stop: 11/18/21 04:25 Heparin Sodium (Porcine) (Heparin Sod 5,000 Unit/0.5 Ml Vial) 7,500 units SQ Q8 [facility] Stop: 11/18/21 05:59 Piperacillin Sod/Tazobactam (Sod 4.5 gm/ Dextrose) 120 mls @ 30 mls/hr IV Q8H [facility]; Protocol Stop: 10/26/21 09:59 Insulin Aspart (Insulin Aspart Per Unit) 0 units SC ACHS [facility] Stop: 11/18/21 07:29 Insulin Glargine (Insulin Glargine Solostar 100 Units/Ml 3 Ml Pen) 60 units SQ BID [facility] Stop: 11/18/21 08:59 Losartan Potassium (Losartan Potassium 50 Mg Tab) 100 mg PO [facility] Stop: 11/18/21 08:59 Last Admin: 10/19/21 07:53 Dose: 100 mg Documented by: Metoprolol Tartrate (Metoprolol Tartrate 25 Mg Tab) 75 mg PO BID [facility] Stop: 11/18/21 08:59 Last Admin: 10/19/21 07:54 Dose: 75 mg Documented by: Miscellaneous (Carbohydrates For Hypoglycemia ) 15 - 30 gm PO UD PRN PRN Reason: Hypoglycemia Protocol Stop: 11/18/21 04:25 Miscellaneous Information (Piperacill/Tazobac Consult Active) 1 ea N/A UD PRN PRN Reason: Consult Stop: 11/18/21 03:41 Miscellaneous Information (Vancomycin Consult Active) 1 ea N/A UD PRN PRN Reason: Consult Stop: 11/18/21 03:41 Morphine Sulfate (Morphine Sulfate 2 Mg/Ml Carp) 2 mg IV Q3H PRN PRN Reason: Pain Stop: 11/01/21 23:18 Last Admin: 10/19/21 07:40 Dose: 2 mg Documented by: Trazodone HCl (Trazodone Hcl 100 Mg Tab) 100 mg PO HS [facility] Stop: 11/18/21 20:59
[2021-10-19] MEDS: LOSARTAN POTASSIUM 50 MG TAB PO SCH (07:53)
[2021-10-19] MEDS: FLUoxetine HCL 20 MG CAP PO SCH (07:53)
[2021-10-19] MEDS: ASPIRIN 325 MG ECTAB PO SCH (07:54)
[2021-10-19] MEDS: METOPROLOL TARTRATE 25 MG TAB PO SCH ×2 (07:54→21:02)
[2021-10-19] MEDS: FAMOTIDINE 10 MG TABLET PO SCH (07:54)
[2021-10-19] MEDS: CLOPIDOGREL BISULFATE 75 MG TAB PO SCH (07:55)
--- NOTE | 2021-10-19 07:58 | CT Scan Report ---
CT abd pelvis IV con only CLINICAL HISTORY: elevated LFTs. History of metastatic adenocarcinoma COMPARISON STUDY: 01/13/2007 CT DOSE: 1272.25 mGy.cm TECHNIQUE: Standard CT of the Abdomen and Pelvis was performed with IV contrast. A dose lowering mariluz hnique was utilized adhering to the principles of ALARA. Contrast Volume: Optiray 320, 95 ml. The patient did not receive oral contrast. FINDINGS: Lung base: There is left lower lobe collapse with pleural fluid seen throughout the imaged portion of the left lung base. This is probably related to the patient's malignant process. The imaged right he mithorax is clear. There is subcarinal and right hilar adenopathy present characteristic of metastati c disease. The heart size is within normal limits status post mitral valve replacement. Abdominal cavity: There is no evidence for abdominal mass, adenopathy or ascites. Liver: There is homogeneous attenuation of the liver parenchyma. There is no evidence for enhancing m ass lesion. Spleen: There is homogeneous attenuation of the splenic parenchyma. There is no enhancing mass lesion . Pancreas: There is homogeneous attenuation of the pancreatic parenchyma. However, there has been inte rval development of a cyst within the head of the pancreas measuring 1.8 cm. No other pancreatic mass is identified. Follow-up MRI would be the study of choice for further evaluation. Gall Bladder: The gallbladder is well distended with no evidence for intraluminal calculi, wall thick ening or pericholecystic edema. Adrenal glands: The adrenal glands are normal in size and attenuation. There is no evidence for enhan cing mass lesion. Kidneys: There is homogeneous attenuation of the renal parenchyma bilaterally. There is no evidence f or renal calculus or hydronephrosis. There is no evidence for enhancing mass. There is a large exophy tic cyst extending from the lower pole of the right kidney. This has increased in size from the previ ous study. However, it represents a benign process. Bowel: The bowel loops are normally placed within the abdomen and pelvis without evidence for dilatat ion or obstruction. There is no evidence for mass lesion. There are no inflammatory changes present. There is no evidence for free air. The appendix is not visualized. Bladder: A Castillo catheter is in place. However, there is diffuse thickening of the bladder wall. : There is no evidence for pelvic mass or adenopathy. There is no evidence for pelvic ascites. Vasculature: There is no evidence for aneurysmal dilatation of the abdominal aorta. Atherosclerotic c alcification is present. Osseous structures: There is no acute osseous pathology. There is no compression fracture involving t he superior endplate of L3. Degenerative changes are seen within the lumbar spine. IMPRESSION: 1. Evidence for left lower lobe collapse with large left pleural effusion as described. This probably relates to the patient's malignant process. 2. There is evidence for metastatic disease within the mediastinum. 3. Interval development of a cyst within the head of the pancreas. Follow-up is recommended as descri bed above 4. Additional nonacute findings are delineated above.. ACT 112: Negative or not required by law. Electronically signed by: Frankie Pavon M.D. 10/19/2021 7:57 AM
[2021-10-19] MEDS: HEPARIN SOD 5,000 UNIT/0.5 ML VIAL SQ SCH ×2 (07:59→09:10)
[2021-10-19] MEDS: ALBUT/IPRATROP 3MG/0.5MG NEB 3 ML VIAL NEB SCH ×4 (08:02→19:27)
[2021-10-19] MEDS ORDERED: PHARMACY GLYCEMIC MGMT CONSULT PRN (08:43)
[2021-10-19] MEDS ORDERED: INSULIN GLARGINE SOLOSTAR 100 UNITS/ML 3 ML PEN SQ SCH (09:00)
--- NOTE | 2021-10-19 09:27 | Pharmacy Report ---
Pharmacy Glycemic Short Note 2 - Date of Service October 19, 2021 - Glycemic Short BSG Results (Last 24 hours): 10/18/21 10/18/21 10/18/21 16:55 17:12 22:07 Glucose 358 H* POC Glucose 244 H POC Glucose (other) 369 H* 10/19/21 10/19/21 05:05 08:24 Glucose 182 H POC Glucose 173 H POC Glucose (other) OUTPATIENT ANTIDIABETIC REGIMEN: * Lantus 60 units BID * Regular insulin 35 units TID meals * A1c 8.5% 09/27/21 ASSESSMENT: * 76 year old male admitted with acute respiratory failure, pleural effusion, recent metastatic adenocarcinoma diagnosis (09/28), uncontrolled type 2 diabeti c, pulmonary consult, IV vancomycin + zosyn. * Hyperglycemic on admission, recent admission earlier this month patient required about half of his outpatient insulin doses, will begin with similar insulin dosing and titrate to goal. PLAN FOR INPATIENT GLYCEMIC CONTROL: * Basal insulin * Lantus 30 units SQ BID * Bolus insulin * NovoLog per scale ACHS or Q6hrs while NPO * Goal Range: Low 110 mg/dL - High 140 mg/dL * Correction Factor: 20 mg/dL/unit * Nutritional / Prandial insulin per carb ratio of 1 unit per 6 grams CHO consumed PLAN FOR DISCHARGE: * to be determined
[2021-10-19] MEDS: PIPERACILLIN/TAZOBACTAM 4.5 GM in DEXTROSE 5% 100 ML IV SCH ×2 (09:29→18:10)
[2021-10-19] MEDS: guaiFENesin/CODEINE 100MG/10MG 5ML UDC PO SCH ×3 (09:33→21:01)
[2021-10-19] MEDS: INSULIN ASPART PER UNIT SC SCH ×4 (09:35→21:15)
[2021-10-19] MEDS: INSULIN GLARGINE SOLOSTAR 100 UNITS/ML 3 ML PEN SQ SCH ×2 (09:36→21:15)
--- NOTE | 2021-10-19 10:31 | Pulmonary Consultation ---
Date of Consultation October 19, 2021 Assessment & Plan (1) Pleural effusion: (2) Lung cancer: (3) Abnormal CT of the chest: (4) PAD (peripheral artery disease): (5) Pulmonary nodules/lesions, multiple: Attending: Dr. Hutton Impression: This is a 76-year-old male known to our service from previous admission 09/26/2021. Patient has a pleural effusion that we did a diagnostic centesis on last admission which revealed metastatic adenocarcinoma of unclear etiology. Patient has a history of prostate cancer and is currently on Lupron every 3 months. This was restarted in February 2021. Patient is also on supplemental oxygen at 3 L/min via nasal cannula at home. He is oxygenating well at his base rate at this time. Patient has no significant shortness of breath. Reason for admission of the hospital was uncontrolled diarrhea and weakness resulting in inability to use the toilet at home. 1. Malignant left pleural effusion: * Diagnostic left centesis performed in the emergency department 09/26/2021 revealing malignant pleural effusion * Patient with pulmonary mass and pleural nodules compressing the pulmonary artery * Patient presents for diarrhea. CTA reveals no pulmonary emboli but shows increasing pleural effusion with compressive atelectasis * Discussed option of thoracentesis versus Pleurx catheter with patient. Significant risk and bleeding due to clopidogrel. Risk he does stop clopidogrel as patient has varying temperature and pulse to right foot. Shoul d theoretically hold clopidogrel for 5 days prior to procedure. Patient understands that there is significant risk to any procedure of bleeding. * He would like to think about options and discuss with his . I expressed that we could do procedure at 3 PM this afternoon and would be glad to have conference with him and his when visiting hours begin at 2 PM. 2. Metastatic lung cancer: * Diagnosed with diagnostic thoracentesis 09/26/2021 * Will again consider option of palliative radiation as there is compression on the pulmonary artery * At this time, Dr. Huttno will consider Pleurx catheter insertion versus thoracentesis later today * Patient has established with Dr. Jagdeep Damon at [facility]. Please refer to comments in HPI * Any treatment at this time would most likely be palliative and not curative * Consider palliative consult and changing CODE STATUS from full code to DNR/DNI 3. Multiple pulmonary nodules: * No futility and future screening as patient has diagnosed lung cancer * No surgical options at this time 4. History of tobacco abuse: * Patient quit smoking 10/28/1996 after 30 years of 2.5 pack/day history 5. Vaccination status: * Covid vaccination with Pfizer x2+ a booster * Pneumococcal vaccination x2 * Influenza vaccination 06/2021 Thank you very much for including us in the care of this patient. We will follow along with you at this time. Pulmonary role would be limited to thoracentesis versus Pleurx catheter. Will discuss with patient and . Supervising Physician Co-Signing Physician Notes I saw and evaluated the patient with Rommel Vaca, and agree with findings and plan as documented in the note. In distress secondary to pain in the back. Does complain of shortness of breath especially when he is laying flat Denies any significant chest pain No nausea or vomiting On physical exam patient had significant decrease in left-sided breath sounds Patient had thoracentesis done earlier this month which showed metastatic adenocarcinoma Overall prognosis of the patient is very poor. Case was discussed in front of the . They are willing to go ahead with a Pleurx catheter other than drainage. He is on Plavix. Risk of bleeding was explained to the patient he understands and agrees to go ahead with it. I do think patient likely has trapped lung because of the chronic pleural effusion as well as cancer. We will put place catheter later today. Please note the above document was generated using voice recognition software. It may contain grammatical, syntax or spelling errors.Any formal questions or concerns about the content, text or information contained within the body of this dictation should be directly addressed to the provider for clarification. History of Present Illness Reason for Consultation: Malignant pleural effusion Attending Physician: Rock Rodriguez MD History of Present Illness Attending: Dr. Hutton This is a 76-year-old male known to us from previous admission 09/26/2021. At that time the patient was found to have a pleural effusion. A centesis was performed and sampling was withdrawn for cytology. A thoracentesis was not performed as patient is chronically on clopidogrel (Plavix) for severe vascular disease. Pleural fluid grew out no bacteria or acid-fast bacilli but was positive for malignant cells consistent with metastatic adenocarcinoma. The tumor immunophenotype (CK7, CDX2 positive) is not entirely specific but could be consistent with upper gastrointestinal or stomach primaries. This immunophenotype is not consistent with most lung, breast, colorectal, kidney, thyroid or prostate primaries. Patient was seen by Dr. Shraddha Damon from radiation oncology and felt that there was no acute role for radiation therapy and suggested that treatment plan be developed with outpatient medical oncology. Patient was then seen by Dr. Jagdeep Damon at [facility] oncology on 10/18/2021. His notes were reviewed. Patient with history of prostate cancer initially diagnosed in 2001 with radical prostatectomy. He had a gradual rise in his PSA level and was started on Lupron therapy in March 2015. Lupron was then stopped August 2016 and restarted March 08, 2021 when his PSA level again increase. He currently receives Lupron every [address] Damon suggested consideration of palliative radiation treatment to the left lung mediastinum mass due to compressive effect. Dr. Damon is suggesting a PET CT scan with follow-up in his office after that. He would also like to check cancer cells per foundation 1 including PD-L1. He states that there may be a role for systemic chemotherapy for palliation but that it would not be curative. He is not sure that the patient would be a good candidate for any kind of chemotherapy at this time due to comorbid conditions and declining performance status. Patient states that he does have some shortness of breath that is not worse over the last several days. Patient is on supplemental oxygen at this time at 3 L/min by nasal cannula at home. He is weaker than typical. Over the last several days he has had increased diarrhea and right lower back pain. CT imaging on admission showed no evidence of pulmonary emboli. He does have a large left pleural effusion which is increased in size from 09/26/2021. There is also appreciation of mild up associated pleural thickening. Likely suggestive of malignant pleural effusion with possible pleural metastatic diseas e. There also appears to be consolidation of left lung with left side bronchial mucus plugging and opacification. Previous imaging also revealed compression on the pulmonary artery. Patient has a past history of tobacco abuse. He quit smoking 10/28/1996. Had a 2.5-pack-year history for 30 years. Patient received Pfizer vaccination for Covid on 08/26/2021, 01/24/2021, and 12/28/2020. Influenza vaccination 07/10/2021 Pneumococcal vaccination 04/18/2010 and 12/07/2014 Allergies Allergy/AdvReac Type Severity Reaction Status Date / Time Sulfa (Sulfonamide Allergy Mild Rash Verified 10/18/21 16:25 Antibiotics) sulfamethoxazole Allergy Mild Rash Verified 10/18/21 16:25 [From Bactrim] trimethoprim [From Bactrim] Allergy Mild Rash Verified 10/18/21 16:25 codeine AdvReac Mild Nausea/"wild Verified 10/18/21 16:25 dreams" Home Medications Medication Instructions Recorded Confirmed Type aspirin 325 mg tablet (Filiberto 325 mg PO QAM 05/04/19 10/18/21 History Aspirin) cyanocobalamin (vitamin B-12) 1,000 mcg PO QAM 08/09/20 10/18/21 History 1,000 mcg tablet (Vitamin B-12) insulin syringe-needle U-100 0.5 #600 ea 10/10/20 10/10/21 Rx mL 31 gauge x 5/16" (BD Insulin Syringe Ultra-Fine) metformin 850 mg tablet 850 mg PO TID #270 tab 10/19/20 10/18/21 Rx trazodone 100 mg tablet 100 mg PO HS #30 tab 02/13/21 10/18/21 Rx insulin regular human 100 unit/mL 35 unit SQ TID 30 Days #40 ml 03/24/21 10/18/21 Rx injection solution (Novolin R Regular U-100 Insulin) amlodipine 10 mg tablet (Norvasc) 10 mg PO QAM 07/28/21 10/18/21 History empagliflozin 10 mg tablet 10 mg PO QAM 07/28/21 10/18/21 History (Jardiance) famotidine 10 mg tablet (Acid 10 mg PO QAM 07/28/21 10/18/21 History Manager Account Management (famotidine)) fluoxetine 20 mg capsule (Prozac) 20 mg PO QAM 07/28/21 10/18/21 History losartan 100 mg tablet (Cozaar) 100 mg PO QAM 07/28/21 10/18/21 History clopidogrel 75 mg tablet (Plavix) 75 mg PO QAM #90 tab 08/31/21 10/18/21 Rx simvastatin 80 mg tablet (Zocor) 80 mg PO HS #90 tab 08/31/21 10/18/21 Rx insulin glargine 100 unit/mL 60 unit SQ BID #11 vial 09/05/21 10/18/21 Rx subcutaneous solution (Lantus U-100 Insulin) Oxygen Home #3 l 09/29/21 10/10/21 Rx digoxin 250 mcg (0.25 mg) tablet 250 mcg PO DAILY@1600 #30 tab 09/29/21 10/18/21 Rx furosemide 40 mg tablet 40 mg PO BID #60 tab 10/13/21 10/18/21 Rx doxazosin 1 mg tablet 1 mg PO HS 10/18/21 10/18/21 History metoprolol tartrate 50 mg tablet 75 mg PO BID 10/18/21 10/18/21 History Patient History Medical History Acid reflux disease Anxiety Atrial fibrillation CAD (coronary artery disease) Chronic kidney disease, stage II (mild) Depression Diabetic nephropathy Diabetic peripheral neuropathy Diabetic retinopathy DM (diabetes mellitus), type 2 Hypercholesterolemia Hypertension Hyponatremia Lung cancer Malignant pleural effusion with metastatic adenocarcinoma PAD (peripheral artery disease) Pleural effusion Malignant pleural effusion with metastatic adenocarcinoma. Diagnostic centesis performed 09/26/2021 Prostate CA Treated with surgery and then radiation in 2001 Stage 2 chronic kidney disease Type 2 diabetes mellitus with stage 2 chronic kidney disease and hypertension Uncontrolled type 2 diabetes mellitus with neurologic complication, with long- term current use of insulin Surgical History History of angiography With right iliac stent placement History of appendectomy History of cardiac cath 1996 @ [facility] [place] with 1 stent placed History of colonoscopy History of heart artery stent 1996--1 stent History of lumbar discectomy History of prostate biopsy malignant History of radical prostatectomy 2001 History of tooth extraction full upper denture History of wisdom tooth extraction S/P CABG x 3 d/t CAD 2006 @ [facility] [place]--follows with Dr. Small Family History Father Myocardial infarction Mother Myocardial infarction Family history of diabetes mellitus Sister Family history of diabetes mellitus Other No family history of adverse response to anesthesia Prostate cancer Denies family history of Ovarian cancer Breast cancer Colorectal cancer Social History Smoking Status: Former smoker Tobacco Type: Cigarettes Number of Years Since Quit: 21; Second Hand Exposure: No; Do You Dip or Chew Tobacco: No; Tobacco Cessation Education Requested by Patient: No Hx Alcohol Use: Yes Alcohol type: beer Alcohol Intake Frequency: 2-4 x/Month Hx Substance Use: No Preferred Language: Slovak Communication Ability: Effective Talking Books Library Clerk Required: No Beliefs That Will Affect Care: None marital status: Current Living Situation: Spouse current occupational status: retired How many Children do You have: 2 Other Information That Helps Us Care for You: No Feels Safe at Home: Yes Safety Concerns: Feels Safe At This Time Childhood Exposure to Second-Hand Smoke: No caffeine: Yes Dental Care, Regularly: Yes Physical Activity Frequency: 1-2 Times per Week Seatbelt Use: always Sunscreen Use: No Assistive Devices: Walker Assistive Devices Comment: pt uses cane, wheelchair or walker at home Review of Systems Review of Systems: All systems reviewed & are unremarkable except as noted in Subjective Physical Exam Physical Exam: GENERAL : No acute distress. No use of accessory muscles. EYES: No icterus, gaze conjugate NOSE: No evidence of epistaxis. Nasal cannula is in place and secure MOUTH: No lesions or candidiasis. Mucosa moist NECK: Supple LUNGS: Scattered wheezes. Decreased breath sounds on the left. No appreciation of rhonchi. HEART: Regular, rate controlled ABDOMEN: Soft, NT, ND, BS Present EXTREMITIES: No LE edema, pedal pulses are weak in the left foot. Unable to appreciate palpable pulse in the right foot. Nursing to assess with Doppler. Right foot is cold but not mottled. Left foot is warm. NEURO: A&OX3 Results & Data Results & Data ([facility]) Vital Signs (Past 12 Hours) Vital Signs Temp Pulse Resp BP BP Pulse Ox Pulse Ox 10/19/21 09:20 80 24 131/80 95 10/19/21 07:28 36.8 C 111 H 18 160/96 H 93 10/19/21 06:07 98 10/19/21 06:00 86 L 10/19/21 04:26 103 H 20 144/85 H 4 L 10/18/21 22:35 95 H 19 131/68 93 Laboratory Results 10/19/21 05:05 10/19/21 05:05 INR 1.2 (0.9-1.1) H 10/18/21 16:55 COVID-19 Results 10/18/21 17:30 SARS-CoV-2 (PCR) NEGATIVE Diagnostic Findings Chest X-Ray 10/18/21 16:29 XR chest 1V portable HISTORY: 76 years-old Male Chest Pain Chest pain with history of lung cancer COMPARISON: Chest radiograph and CTA chest 09/26/2021 TECHNIQUE: Multiple AP view of the chest FINDINGS: Prior median sternotomy. There is progressive alveolar opacification of the left hemithorax. Subcentimeter nodule of the right midlung. Ill-defined interstitial coarsening with hazy opacities of the right lung. No pneumothorax or large right pleural effusion. Degenerative changes of the shoulders and spine. IMPRESSION: 1. Progressive now complete opacification of left hemithorax likely representing combination of pleural effusion with airspace disease. 2. Nodules of the right lung are better seen on comparison chest CT. ACT 112: Negative or not required by law. The above report was generated using voice recognition software. It may contain grammatical, syntax or spelling errors. Electronically signed by: Ruddy Ibanez M.D. 10/18/2021 5:29 PM Chest CTA 10/18/21 16:30 CT angio chest PE protocol CT DOSE: 846.82 mGy.cm HISTORY: 76 years-old Male with Chest Pain, eval for PE. Acute chest pain with shortness of breath TECHNIQUE: Multiple CTA images of the chest were obtained after the intravenous administration of 120 ml Optiray. Coronal and sagittal MIPS were obtained from the axial data set and were submitted for review. All measurements were obtained according to NASCET criteria. A dose lowering technique was utilized adhering to the principles of ALARA. COMPARISON: Chest radiograph of same day, CTA chest 09/26/2021 FINDINGS: CTA: The heart is mildly enlarged. There is mild mass effect the heart secondary to a large left pleural effusion has described below. Prior median sternotomy and CABG. Extensive [place] coronary artery calcifications. Atherosclerosis of the aorta with patency of the imaged great vessels. The segmental and subsegmental pulmonary arterial branches are suboptimally visualized secondary to respiratory motion artifact, notably within the right lung base. No pulmonary emboli are identified. CT CHEST: No thyroid nodule. Numerous pathologically enlarged mediastinal and bilateral hilar lymph nodes redemonstrated without significant change from prior. Pathologic periesophageal and pericardial lymph nodes are also unchanged. Large left pleural effusion. Pleural thickening and enhancement of the left hemithorax has progressed from prior with mild soft tissue nodularity. There is complete consolidation with volume loss of the left lung. Mucous plugging of the left mainstem bronchus with opacification of the left upper and lower lobe bronchi. Obscuration of the previously described suspicious left upper lobe nodule. Trace right pleural effusion. Respiratory motion artifact limits the study. Subpleural nodules throughout the right lung redemonstrated sebaceous for metastatic disease. Some of these appear to have mildly increased in size. Groundglass densities are noted throughout the right lung. No acute process of the imaged upper abdomen. Hepatic steatosis. Unremarkable soft tissues. No acute fracture or suspicious bone lesion is identified. IMPRESSION: 1. Study is degraded by respiratory motion artifact. No pulmonary emboli are identified. 2. Large left pleural effusion has increased in size from 09/26/2021. Additionally, there is mild associated pleural thickening. Findings are suggestive of a malignant pleural effusion with possible pleural metastatic disease. Superimposed infection could appear similarly. 3. Complete consolidation of the left lung with left-sided bronchial mucous plugging and opacification. 4. Trace right pleural effusion. 5. Numerous pathologic lymph nodes of the chest, most pronounced within the mediastinal and hilar distributions are redemonstrated suggestive of lymphatic metastatic disease. 6. Scattered right-sided pulmonary nodules suggestive of metastatic disease have increased in size from prior. ACT 112: Negative or not required by law. The above report was generated using voice recognition software. It may contain grammatical, syntax or spelling errors. Electronically signed by: Ruddy Ibanez M.D. 10/18/2021 6:23 PM Abdomen/Pelvis CT 10/18/21 21:42 CT abd pelvis IV con only CLINICAL HISTORY: elevated LFTs. History of metastatic adenocarcinoma COMPARISON STUDY: 01/13/2007 CT DOSE: 1272.25 mGy.cm TECHNIQUE: Standard CT of the Abdomen and Pelvis was performed with IV contrast. A dose lowering technique was utilized adhering to the principles of ALARA. Contrast Volume: Optiray 320, 95 ml. The patient did not receive oral contrast. FINDINGS: Lung base: There is left lower lobe collapse with pleural fluid seen throughout the imaged portion of the left lung base. This is probably related to the patient's malignant process. The imaged right hemithorax is clear. There is subcarinal and right hilar adenopathy present characteristic of metastatic disease. The heart size is within normal limits status post mitral valve replacement. Abdominal cavity: There is no evidence for abdominal mass, adenopathy or ascites. Liver: There is homogeneous attenuation of the liver parenchyma. There is no evidence for enhancing mass lesion. Spleen: There is homogeneous attenuation of the splenic parenchyma. There is no enhancing mass lesion. Pancreas: There is homogeneous attenuation of the pancreatic parenchyma. However, there has been interval development of a cyst within the head of the pancreas measuring 1.8 cm. No other pancreatic mass is identified. Follow-up MRI would be the study of choice for further evaluation. Gall Bladder: The gallbladder is well distended with no evidence for intraluminal calculi, wall thickening or pericholecystic edema. Adrenal glands: The adrenal glands are normal in size and attenuation. There is no evidence for enhancing mass lesion. Kidneys: There is homogeneous attenuation of the renal parenchyma bilaterally. There is no evidence for renal calculus or hydronephrosis. There is no evidence for enhancing mass. There is a large exophytic cyst extending from the lower pole of the right kidney. This has increased in size from the previous study. However, it represents a benign process. Bowel: The bowel loops are normally placed within the abdomen and pelvis without evidence for dilatation or obstruction. There is no evidence for mass lesion. There are no inflammatory changes present. There is no evidence for free air. The appendix is not visualized. Bladder: A Casitllo catheter is in place. However, there is diffuse thickening of the bladder wall. : There is no evidence for pelvic mass or adenopathy. There is no evidence for pelvic ascites. Vasculature: There is no evidence for aneurysmal dilatation of the abdominal aorta. Atherosclerotic calcification is present. Osseous structures: There is no acute osseous pathology. There is no compression fracture involving the superior endplate of L3. Degenerative changes are seen within the lumbar spine. IMPRESSION: 1. Evidence for left lower lobe collapse with large left pleural effusion as described. This probably relates to the patient's malignant process. 2. There is evidence for metastatic disease within the mediastinum. 3. Interval development of a cyst within the head of the pancreas. Follow-up is recommended as described above 4. Additional nonacute findings are delineated above.. ACT 112: Negative or not required by law. Electronically signed by: Frankie Pavon M.D. 10/19/2021 7:57 AM PG Care Time/CCT Total # of Minutes Spent Total Time Spent with Patient: Total time spent is greater than 50% in coordination of care (as documented) at patient's floor/unit and/or counseling patient:45 Coding [place] [address] Inpt Consult Level 4 Patient Type Established Diagnoses Pleural effusion J90 Lung cancer C34.[address] of the chest R93.89 PAD (peripheral artery disease) I73.9 Pulmonary nodules/lesions, multiple R91.8 Time Spent (min) 45 Comment 45 minutes spent by this provider independent of any procedures.
--- NOTE | 2021-10-19 12:50 | Pharmacy Report ---
Pharmacy Abx Dose Short Note - Date of Service October 19, 2021 - Assessment & Plan Assessment * 76 year old M receiving Zosyn and vancomycin for treatment of HAP * PMH: recently diagnosed metastatic lung CA during recent hospitalization, diabetes * Negative MRSA nasal swab, but this can be falsely negative with lung CA. No procal ordered, but this too can be falsely elevated with lung CA * Suggest changing to cefepime/vanco for now to avoid more nephrotoxic combo of Zosyn/vanco. Also - please consider discontinuing vanco after 24-48 hours if improvement noted (very unlikely to be MRSA PNA if so). Dr. Almeida to consider. Vancomycin * 21 mg/kg load already given * Will continue with dosing via AUC estimate Plan * Vancomycin 750 mg IV q12h * Trough 10/20 @ 1730 Pharmacy will continue to follow and will adjust dose/frequency as necessary. Thank you.
[2021-10-19] MEDS: DIGOXIN 0.25 MG TAB PO SCH (14:57)
[2021-10-19] MEDS ORDERED: LIDOCAINE 1% LOCAL 20 ML VIAL ONE (15:09)
--- NOTE | 2021-10-19 16:52 | Billing Data ---
Date of Service October 19, 2021 Coding Level of Care Code 23822 Subseq Hosp Care Lvl 2
--- NOTE | 2021-10-19 18:01 | XRay Report ---
XR chest 1V portable CLINICAL HISTORY: sp pleurex cath placement TECHNIQUE: Single frontal radiograph of the chest was obtained. Comparison: Comparison is made to chest one view 10/18/2021 FINDINGS: Median sternotomy wires are stable. There is interval placement of a left pleural drain. The cardiome diastinal silhouette is obscured. Minimally improved aeration of the left lung. The large left pleura l effusion is minimally decreased from prior exam. IMPRESSION: Interval placement of left pleural drain with minimal improvement in left pleural effusion and left l aaron opacification. No evidence of pneumothorax. ACT 112: Negative or not required by law. Electronically signed by: Kostas Abernathy M.D. 10/19/2021 5:59 PM
--- NOTE | 2021-10-19 18:19 | Procedure Note ---
Procedure Note Date of Service October 19, 2021 Note PREOPERATIVE DIAGNOSIS: Recurrent left pleural effusion. POSTOPERATIVE DIAGNOSIS: Recurrent left pleural effusion. PROCEDURE PERFORMED: Left PleurX catheter placement. ANESTHESIA: Local 1% Lidocaine without Epinephrine COMPLICATIONS: None. INDICATION FOR PROCEDURE: Malignant left-sided pleural effusion DESCRIPTION OF PROCEDURE: The patient was placed in a semirecumbent position. I evaluated the left pleura with the ultrasound and located an adequate spot above the diaphragm. The left chest and upper abdomen were prepped and draped in the usual sterile fashion. Lidocaine 1% was used to infiltrate two areas; one in the left upper quadrant where the tube would exit and the other along the anterior axillary line one intercostal space below. A small counterincision was made in the left upper quadrant area. Through the anterior axillary line area, the pleural space was accessed by Seldinger technique. The counterincision was made around the guidewire and then the PleurX catheter was tunneled from the right upper quadrant small incision to the one overlying the ribs. A sheath introducer was then passed over the wire and then the PleurX catheter was placed through the sheath introducer. There was good return of fluid. 1700 ml of serosanguineous fluid was withdrawn slowly as the small counterincision was closed with Monocryl stitch. The catheter was capped off, and sterile dressings were applied. The patient tolerated the procedure well without any complications. Chest Xray to follow. Complications: None Blood Loss: < 3cc Coding CPT Codes Pulmonary/Thoracic - Pulmonary and Thoracic: 60775 Insert pleural cathereter w/cuff ([id number]) Pulmonary/Thoracic - Pulmonary and Thoracic: 53454 Pleural drainage w/o imaging ([id number]) Pulmonary/Thoracic - Pulmonary and Thoracic: 05343 US, Chest, real time with imaging documentation ([id number]) [facility] Procedure Codes (Charges) Pulmonary/Thoracic Procedure 1: Pulmonary and Thoracic: 72410 Insert pleural cathereter w/cuff Procedure 2: Pulmonary and Thoracic: 39312 Pleural drainage w/o imaging Procedure 3: Pulmonary and Thoracic: 03080 US, Chest, real time with imaging documentation
[2021-10-19] MEDS ORDERED: DOXAZOSIN MESYLATE 1 MG TAB PO SCH (21:00)
[2021-10-19] MEDS: traZODone HCL 100 MG TAB PO SCH (21:02)
[2021-10-19] MEDS: DOXAZosin MESYLATE TAB 2 MG TAB PO SCH (21:03)
[2021-10-20] MEDS: ALBUT/IPRATROP 3MG/0.5MG NEB 3 ML VIAL NEB SCH ×2 (00:22→07:39)
[2021-10-20] MEDS: MoRPHine SULFATE 2 MG/ML CARP IV PRN ×4 (01:02→10:43)
[2021-10-20] MEDS: PIPERACILLIN/TAZOBACTAM 4.5 GM in DEXTROSE 5% 100 ML IV SCH ×3 (01:47→17:43)
[2021-10-20] MEDS: guaiFENesin/CODEINE 100MG/10MG 5ML UDC PO SCH ×4 (01:50→20:12)
[2021-10-20] MEDS: HEPARIN SOD 5,000 UNIT/0.5 ML VIAL SQ SCH ×3 (06:00→21:58)
--- NOTE | 2021-10-20 07:13 | Electrocardiogram Report ---
Test Reason : Blood Pressure : / mmHG Vent. Rate : 088 BPM Atrial Rate : 326 BPM P-R Int : 000 ms QRS Dur : 076 ms QT Int : 350 ms P-R-T Axes : 000 010 190 degrees QTc Int : 423 ms Atrial fibrillation Cannot rule out Anterior infarct , age undetermined Abnormal ECG When compared with ECG of 26-SEP-2021 11:53, No significant change was found Confirmed by Sebastian Villagran ([id number]) on 10/20/2021 7:13:47 AM Referred By: Jenna Kulkarni Confirmed By:Sebastian Villagran
[2021-10-20] MEDS: ASPIRIN 325 MG ECTAB PO SCH (07:34)
[2021-10-20] MEDS: CLOPIDOGREL BISULFATE 75 MG TAB PO SCH (07:34)
[2021-10-20] MEDS: FLUoxetine HCL 20 MG CAP PO SCH (07:34)
[2021-10-20] MEDS: METOPROLOL TARTRATE 25 MG TAB PO SCH ×2 (07:35→20:13)
[2021-10-20] MEDS: FAMOTIDINE 10 MG TABLET PO SCH (07:35)
[2021-10-20] MEDS: INSULIN GLARGINE SOLOSTAR 100 UNITS/ML 3 ML PEN SQ SCH (07:35)
[2021-10-20] MEDS: LOSARTAN POTASSIUM 50 MG TAB PO SCH (07:35)
[2021-10-20 07:36] LABS: BUN Creatinine Ratio 27.3 (10-20); Calcium 9.1 mg/dl (8.5-10.1); Creatinine Clr Calc Pharmacy 44.3 ml/min; Est GFR (Non-African American) 38.9 ml/min
--- NOTE | 2021-10-20 07:43 | Hospitalist Progress Note ---
Date of Service October 20, 2021 Assessment & Plan (1) Acute respiratory failure with hypoxia: Plan: 76 year old male PMHx recent diagnosis metastatic adenocarcinoma, prostate cancer s/p prostatectomy, HTN, GERD, HLD, PAD, CAD s/p CABG on Plavix admitted for hemoptysis with pleural effusion. #Acute respiratory failure with hypoxia 2/2 malignant left pleural effusion Recent diagnosis of metastatic adenocarcinoma from 09/28/21. Seen by Dr. Damon. CXR: Complete opacification left hemithorax. CT Abd/pelv: Large left pleural effusion, increased in size from 09/26/21, mild associated pleural thickening. -Most likely 2/2 metastatic adenocarcinoma vs pulmonary infection. -WBC 14.05.->15 ->15.94 -Cx pending -started empiric vancomycin and pip/tazo for possible lung infection. -Flutter valve for mucous plugging, duoneb PRN. -Continue to monitor vitals, AM CBC. -Consulted pulmonology -Pleurx catheter placed POD 1 -Drained 1700 ml serosanguineous fluid -Any treatment at present will be palliative -Pulm signed off #Metastatic adenocarcinoma: Cytology from pleural fluid 09/27/21 showed evidence of metastatic adenocarcinoma primary thought to be upper GI. CT Abd/Pelv suggestive of lymphatic metastatic disease, scattered right sided pulmonary nodules suggestive of metastatic disease with increase in size from prior study. -poor prognosis #Uncontrolled type 2 diabetes mellitus: -glycemic cx -ACHS BSG checks. -BSG 104 pm 10/20 #Electrolyte imbalances: -Sodium 133 on entry, corrected to 139 given hyperglycemia. -Potassium of 5.2 on entry, most likely 2/2 dehydration. -Continue to monitor, AM BMP. #Atrial fibrillation: EKG on entry atrial fibrillation pattern. HR in 80's to 100's. -Continue home metoprolol tartrate 75mg BID. -Continue home Plavix, on heparin. -Continue to monitor symptoms and telemetry. -EKG with chest pain #HTN: -Continue metoprolol tartrate, losartan. Monitor vitals. #History of Prostate Cancer: -Continue doxazosin home regimen. #Depression: -Continue Prozac home regimen. FENa:DM2 Code Status:full code DVT PPX:Heparin PT/OT:consulted Case Management:consulted Dispo:Tele Rolando Almeida MD PGY 3, FCM This chart was completed utilizing [employer] voice recognition software. Grammatical errors, random word insertions, pronoun errors, and in complete sentences are an occasional consequence of the system. Any questions or concerns about the content, text, or information contained within the body of this dictation should be addressed directly to the physician for clarification. (2) Uncontrolled type 2 diabetes mellitus with neurologic complication, with long-term current use of insulin: (3) Lung cancer: (4) Atrial fibrillation: (5) Prostate CA: Admission and Anticipated Discharge Date Admission Date: October 18, 2021 Supervising Physician Co-Signing Physician Notes Patient seen and examined, chart reviewed, case discussed with Dr. Almeida and I agree with the assessment and plan as above except as otherwise noted 76-year-old male with a history of pleural effusion with prior diagnostic thoracentesis showing adenocarcinoma of unknown primary, suspicious for GI origin on pathology. Patient subjectively feels similar to yesterday. Has not noticed a big change in his breathing, notes not a lot of fluid was initially removed but that he is expecting removal of fluid shortly this morning. Reports he has not had any bowel movements today, has not had the diarrhea that initially made him present this morning. Endorses some left sided rib pain at site of Pleurx placement, otherwise denies pain. Continues to have shortness of breath and difficulty especially when laying flat. On exam patient sitting up in chair, no acute distress, appears chronically ill. Left Pleurx in place, no surrounding bleeding/purulence/discharge. Dressing in place C/C/I. Greatly diminished left breath sounds, right breath sounds with moderate air movement and without wheezing. Abdomen nontender. Acute respiratory failure with hypoxia: Suspect due to severe malignant effusion, Pleurx catheter placed. Pending fluid removal today at bedside, and to be taught how to do this tomorrow. Patient remains with shortness of breath and difficulty laying flat. Adenocarcinoma: Diagnosed 09/26/21: Given extensive disease and metastasis patient appropriate for palliative Radiation/chemo. follows with Dr. Damon. Patient is been evaluated for palliative radiation for mediastinal lung mass due to compression and follow-up PET/CT pending as outpatient. Following prolonged discussion between patient and pulmonary team today patient moved to DNR/DNI status. Pancreatic cyst: Pancreatic cyst 1.8 cm as below. Patient unable to lay flat to tolerate MRI at this time, may consider additional follow-up once pleural effusion fluid removed and orthopnea improved DM: As above A. fib: Adequately rate controlled at this time, continue medications as above Diarrhea: Improving, no BMs today. CTabdomen no inflammatory change of Mesentery appreciated. Homogenous attenuation of pancreatic parenchyma and interval development of pancreatic cyst of 1.8 cm, patient not able to lay flat to tolerate a MRI at this time. If diarrhea recurs can consider symptomatic treatment, also? Pancreatic insufficiency given findings above. Subjective Patient lying in bed this morning in no acute stress. Still reporting right- sided back pain. Denying any chest pressure, chest pain or worsening of short ness of breath. Tolerating his diet, reports diarrhea has resolved, voiding, slept last night. Physical Exam Physical Exam: General: Lying in bed in no acute distress HEENT: Normocephalic atraumatic Neck: Normal to visual inspection Cardiac: Irregularly irregular rhythm, 1+ pedal edema bilaterally Respiratory: Scattered crackles otherwise clear to auscultation bilaterally improving air movement no wheezes or rhonci GI: Distended abdomen is, soft, nontender, bowel sounds present MSK: Reports weakness Neuro: Alert and oriented x4 Psych: Calm and cooperative with interview Results & Data Results & Data ([facility]) Vital Signs (Past 12 Hours) Vital Signs Temp Pulse Pulse Resp BP BP Pulse Ox 10/20/21 03:00 36.4 C L 90 18 106/63 93 10/19/21 23:45 36.3 C L 74 18 97/56 L 93 10/19/21 23:28 76 10/19/21 19:44 36.3 C L 87 18 132/70 91 Laboratory Results 10/20/21 10/20/21 10/20/21 Range/Units 16:53 11:17 09:36 WBC (4.8-10.8) K/uL RBC (4.7-6.1) M/uL Hgb (14.0-18.0) g/dL Hct (42-52) % MCV (80-100) fL MCH (25-34) pg MCHC (32-36) g/dL RDW Std Deviation (36.4-46.3) fL RDW Coeff of Shlomo (11.5-14.5) % Plt Count (130-400) K/uL MPV (7.4-10.4) fL Immature Gran % (Auto) % Neut % (Auto) % Lymph % (Auto) % [place] % (Auto) % Eos % (Auto) % Baso % (Auto) % Neut # (Auto) (1.4-6.5) K/uL Lymph # (Auto) (1.2-3.4) K/uL [place] # (Auto) (0.11-0.59) K/uL Eos # (Auto) (0-0.5) K/uL Baso # (Auto) (0-0.2) K/uL Immature Gran # (Auto) (0.00-0.02) K/uL Absolute Nucleated RBC (0-0) K/uL Nucleated RBC % (auto) % Polychromasia Anisocytosis Macrocytosis Sodium (136-145) mmol/L Potassium (3.5-5.1) mmol/L Chloride (98-107) mmol/L Carbon Dioxide (21-32) mmol/L Anion Gap (3-11) BUN (7-18) mg/dl Creatinine (0.6-1.4) mg/dl Est Cr Clr Drug Dosing ml/min Est GFR ( Amer) ml/min Est GFR (Non-Af Amer) ml/min BUN/Creatinine Ratio (10-20) Glucose (70-99) mg/dl POC Glucose 104 H 153 H (70-99) mg/dl Calcium (8.5-10.1) mg/dl Random Vancomycin 16.7 mcg/ml 10/20/21 10/20/21 10/20/21 Range/Units 07:30 06:49 06:49 WBC 15.94 H (4.8-10.8) K/uL RBC 4.34 L (4.7-6.1) M/uL Hgb 12.0 L (14.0-18.0) g/dL Hct 38.4 L (42-52) % MCV 88.5 (80-100) fL MCH 27.6 (25-34) pg MCHC 31.3 L (32-36) g/dL RDW Std Deviation 49.7 H (36.4-46.3) fL RDW Coeff of Shlomo 15.4 H (11.5-14.5) % Plt Count 508 H (130-400) K/uL MPV 8.5 (7.4-10.4) fL Immature Gran % (Auto) 0.6 % Neut % (Auto) 85.5 % Lymph % (Auto) 2.6 % [place] % (Auto) 10.9 % Eos % (Auto) 0.3 % Baso % (Auto) 0.1 % Neut # (Auto) 13.63 H (1.4-6.5) K/uL Lymph # (Auto) 0.42 L (1.2-3.4) K/uL [place] # (Auto) 1.74 H (0.11-0.59) K/uL Eos # (Auto) 0.05 (0-0.5) K/uL Baso # (Auto) 0.01 (0-0.2) K/uL Immature Gran # (Auto) 0.09 H (0.00-0.02) K/uL Absolute Nucleated RBC 0.07 H (0-0) K/uL Nucleated RBC % (auto) 0.5 % Polychromasia 1+ Anisocytosis Present Macrocytosis Present Sodium 132 L (136-145) mmol/L Potassium 5.0 (3.5-5.1) mmol/L Chloride 98 (98-107) mmol/L Carbon Dioxide 27 (21-32) mmol/L Anion Gap 8.0 (3-11) BUN 46 H (7-18) mg/dl Creatinine 1.70 H D (0.6-1.4) mg/dl Est Cr Clr Drug Dosing 44.3 ml/min Est GFR ( Amer) 45.0 ml/min Est GFR (Non-Af Amer) 38.9 ml/min BUN/Creatinine Ratio 27.3 H (10-20) Glucose 88 (70-99) mg/dl POC Glucose 90 (70-99) mg/dl Calcium 9.1 (8.5-10.1) mg/dl Random Vancomycin mcg/ml 10/19/21 Range/Units 20:07 WBC (4.8-10.8) K/uL RBC (4.7-6.1) M/uL Hgb (14.0-18.0) g/dL Hct (42-52) % MCV (80-100) fL MCH (25-34) pg MCHC (32-36) g/dL RDW Std Deviation (36.4-46.3) fL RDW Coeff of Shlomo (11.5-14.5) % Plt Count (130-400) K/uL MPV (7.4-10.4) fL Immature Gran % (Auto) % Neut % (Auto) % Lymph % (Auto) % [place] % (Auto) % Eos % (Auto) % Baso % (Auto) % Neut # (Auto) (1.4-6.5) K/uL Lymph # (Auto) (1.2-3.4) K/uL [place] # (Auto) (0.11-0.59) K/uL Eos # (Auto) (0-0.5) K/uL Baso # (Auto) (0-0.2) K/uL Immature Gran # (Auto) (0.00-0.02) K/uL Absolute Nucleated RBC (0-0) K/uL Nucleated RBC % (auto) % Polychromasia Anisocytosis Macrocytosis Sodium (136-145) mmol/L Potassium (3.5-5.1) mmol/L Chloride (98-107) mmol/L Carbon Dioxide (21-32) mmol/L Anion Gap (3-11) BUN (7-18) mg/dl Creatinine (0.6-1.4) mg/dl Est Cr Clr Drug Dosing ml/min Est GFR ( Amer) ml/min Est GFR (Non-Af Amer) ml/min BUN/Creatinine Ratio (10-20) Glucose (70-99) mg/dl POC Glucose 180 H (70-99) mg/dl Calcium (8.5-10.1) mg/dl Random Vancomycin mcg/ml Medications Administered Current Inpatient Medications Acetaminophen (Acetaminophen 325 Mg Tab) 650 mg PO TID PRN PRN Reason: pain Stop: 11/17/21 23:18 Albuterol (Albut/Ipratrop 3mg/0.5mg Neb 3 Ml Vial) 3 ml NEB Q6R PRN; Protocol PRN Reason: Shortness Of Breath Or Wheezing Stop: 11/18/21 06:59 Aspirin (Aspirin 325 Mg Ectab) 325 mg PO [facility] Stop: 11/18/21 08:59 Last Admin: 10/20/21 07:34 Dose: 325 mg Documented by: Clopidogrel Bisulfate (Clopidogrel Bisulfate 75 Mg Tab) 75 mg PO [facility] Stop: 11/18/21 08:59 Last Admin: 10/20/21 07:34 Dose: 75 mg Documented by: Dextrose (Dextrose 50% 50 Ml Syringe) 25 - 50 ml IV UD PRN; Protocol PRN Reason: Hypoglycemia Protocol Stop: 11/18/21 04:25 Digoxin (Digoxin 0.25 Mg Tab) 0.25 mg PO DAILY@1600 [facility] Stop: 11/18/21 15:59 Last Admin: 10/20/21 15:57 Dose: 0.25 mg Documented by: Doxazosin Mesylate (Doxazosin Mesylate Tab 2 Mg Tab) 1 mg PO HS [facility] Stop: 11/18/21 20:59 Last Admin: 10/19/21 21:03 Dose: 1 mg Documented by: Famotidine (Famotidine 10 Mg Tablet) [facility] Stop: 11/18/21 08:59 Last Admin: 10/20/21 07:35 Dose: 10 mg Documented by: Fluoxetine HCl (Fluoxetine Hcl 20 Mg Cap) [facility] Stop: 11/18/21 08:59 Last Admin: 10/20/21 07:34 Dose: 20 mg Documented by: Glucagon (Glucagon For Inj 1 Mg Vial) 1 mg SQ UD PRN; Protocol PRN Reason: Hypoglycemia Protocol Stop: 11/18/21 04:25 Glucose (Glucose 40% Gel 15 Gm Tube) 15 - 30 gm PO UD PRN; Protocol PRN Reason: Hypoglycemia Protocol Stop: 11/18/21 04:25 Glucose (Glucose 10 Tabs/Tube) 4 - 8 tabs PO UD PRN; Protocol PRN Reason: Hypoglycemia Protocol Stop: 11/18/21 04:25 Guaifenesin/Codeine Phosphate (Guaifenesin/Codeine 100mg/10mg 5ml Udc) 5 ml PO Q6H [facility] Stop: 11/18/21 08:14 Last Admin: 10/20/21 13:33 Dose: 5 ml Documented by: Heparin Sodium (Porcine) (Heparin Sod 5,000 Unit/0.5 Ml Vial) 5,000 units SQ Q8 [facility] Stop: 11/19/21 05:59 Last Admin: 10/20/21 13:33 Dose: 5,000 units Documented by: Hydromorphone HCl (Hydromorphone Inj 0.5 Mg/0.5 Ml Syr) 0.5 mg IV Q6H PRN PRN Reason: Pain Stop: 11/03/21 15:19 Last Admin: 10/20/21 15:57 Dose: 0.5 mg Documented by: Piperacillin Sod/Tazobactam (Sod 4.5 gm/ Dextrose) 120 mls @ 30 mls/hr IV Q8H [facility]; Protocol Stop: 10/26/21 09:59 Last Infusion: 10/20/21 14:34 Dose: Infused Documented by: Insulin Aspart (Insulin Aspart Per Unit) 0 units SC ACHS [facility] Stop: 11/18/21 07:29 Last Admin: 10/20/21 17:00 Dose: Not Given Documented by: Insulin Glargine (Insulin Glargine Solostar 100 Units/Ml 3 Ml Pen) 10 units SQ HS [facility]; Protocol Stop: 10/20/21 23:59 Insulin Glargine (Insulin Glargine Solostar 100 Units/Ml 3 Ml Pen) 20 units SQ BID [facility]; Protocol Stop: 11/20/21 08:59 Losartan Potassium (Losartan Potassium 50 Mg Tab) 100 mg PO QAM [facility] Stop: 11/18/21 08:59 Last Admin: 10/20/21 07:35 Dose: 100 mg Documented by: Metoprolol Tartrate (Metoprolol Tartrate 25 Mg Tab) 75 mg PO BID [facility] Stop: 11/18/21 08:59 Last Admin: 10/20/21 07:35 Dose: 75 mg Documented by: Miscellaneous (Carbohydrates For Hypoglycemia ) 15 - 30 gm PO UD PRN PRN Reason: Hypoglycemia Protocol Stop: 11/18/21 04:25 Miscellaneous Information (Piperacill/Tazobac Consult Active) 1 ea N/A UD PRN PRN Reason: Consult Stop: 11/18/21 03:41 Miscellaneous Information (Vancomycin Consult Active) 1 ea N/A UD PRN PRN Reason: Consult Stop: 11/18/21 03:41 Miscellaneous Information (Pharmacy Glycemic Mgmt Consult) 1 ea N/A UD PRN PRN Reason: Consult Stop: 11/18/21 08:42 Morphine Sulfate (Morphine Sulfate 2 Mg/Ml Carp) 2 mg IV Q3H PRN PRN Reason: Pain Stop: 11/01/21 23:18 Last Admin: 10/20/21 10:43 Dose: 2 mg Documented by: Trazodone HCl (Trazodone Hcl 100 Mg Tab) 100 mg PO HS [facility] Stop: 11/18/21 20:59 Last Admin: 10/19/21 21:02 Dose: 100 mg Documented by: Resident Activity Tracking Resident Involvement: Resident Care Provided Care Provided: Adult Hospital Medicine
[2021-10-20 07:52] LABS: Mean Corpuscular Hgb Conc 31.3 g/dL (32-36); Mean Platelet Volume 8.5 fL (7.4-10.4); Platelet Count 508 K/uL (130-400)
[2021-10-20 07:54] LABS: Anisocytosis Present; Basophils # (auto) 0.01 K/uL (0-0.2); Basophils % (auto) 0.1 %; Eosinophils # (auto) 0.05 K/uL (0-0.5); Eosinophils % (auto) 0.3 %; Hematocrit (blood only) 38.4 % (42-52); Immature Granulocytes # (auto) 0.09 K/uL (0.00-0.02); Immature Granulocytes % (auto) 0.6 %; Lymphocytes # (auto) 0.42 K/uL (1.2-3.4); Lymphocytes % (auto) 2.6 %; Macrocytosis Present; Mean Corpuscular Hemoglobin 27.6 pg (25-34); Mean Corpuscular Volume 88.5 fL (80-100); Monocytes # (auto) 1.74 K/uL (0.11-0.59); Monocytes % (auto) 10.9 %; Neutrophils # (auto) 13.63 K/uL (1.4-6.5); Neutrophils % (auto) 85.5 %; Nucleated RBC # (auto) 0.07 K/uL (0-0); Nucleated RBC % (auto) 0.5 %; Polychromasia 1+; RDW Coefficient of Variation 15.4 % (11.5-14.5); RDW Standard Deviation 49.7 fL (36.4-46.3); Red Blood Count 4.34 M/uL (4.7-6.1); White Blood Count 15.94 K/uL (4.8-10.8)
[2021-10-20] MEDS: INSULIN ASPART PER UNIT SC SCH ×4 (08:13→21:56)
[2021-10-20] MEDS ORDERED: ALBUT/IPRATROP 3MG/0.5MG NEB 3 ML VIAL NEB PRN (10:10)
--- NOTE | 2021-10-20 10:33 | Pharmacy Report ---
Pharmacy [facility] Short Note - Date of Service October 20, 2021 - Assessment & Plan Assessment 76 year old M receiving vancomycin/zosyn for treatment of HAP. Prelim blood cultures negative thus far Plan Vancomycin * Patient's Scr trending up quickly today, from 1.1 to 1.7 mg/dL. Received loading dose of vancomycin yesterday morning * Ordered stat vancomycin random level for now to assess clearance. Vancomycin level therapeutic at ~16 mcg/ml * Due to GIA, will plan to dose by levels for vancomycin for now. Will order vancomycin 1250 mg x 1 now, then will order another random level in the AM to assist with further dosing Zosyn * 4.5 gm iv q 8 hr - appropriate for Crcl >20, no change Pharmacy will continue to follow and will adjust dose/frequency as necessary. Thank you.
[2021-10-20] MEDS ORDERED: VANCOMYCIN HCL 1,250 MG in SODIUM CHLORIDE 0.9% 250 ML IV ONE (11:00)
--- NOTE | 2021-10-20 14:00 | Pulmonology Progress Note ---
Date of Service October 20, 2021 Assessment & Plan (1) Pleural effusion: (2) Lung cancer: (3) Abnormal CT of the chest: (4) PAD (peripheral artery disease): (5) Pulmonary nodules/lesions, multiple: Plan: Attending: Dr. Hutton Impression: This is a 76-year-old male known to our service from previous admission 09/26/2021. Patient has a pleural effusion that we did a diagnostic centesis on last admission which revealed metastatic adenocarcinoma of unclear etiology. Patient has a history of prostate cancer and is currently on Lupron every 3 months. This was restarted in February 2021. Patient is also on supplemental oxygen at 3 L/min via nasal cannula at home. He is oxygenating well at his base rate at this time. Patient has no significant shortness of breath. Reason for admission of the hospital was uncontrolled diarrhea and weakness resulting in inability to use the toilet at home. 1. Malignant left pleural effusion: * Diagnostic left centesis performed in the emergency department 09/26/2021 revealing malignant pleural effusion * Patient with pulmonary mass and pleural nodules compressing the pulmonary artery * Patient presents for diarrhea. CTA reveals no pulmonary emboli but shows increasing pleural effusion with compressive atelectasis * PleurX catheter placed by Dr. Hutton 10/19/2021. 1700 mL of serosanguineous fluid removed. Awaiting lab results. 2. Metastatic lung cancer: * Patient has established with Dr. Jagdeep Damon at [facility]. Please refer to comments in HPI * Any treatment at this time would most likely be palliative and not curative * Consider palliative consult and changing CODE STATUS from full code to DNR/DNI -will discuss with patient and today 3. Multiple pulmonary nodules: * No futility in future screening as patient has diagnosed lung cancer * No surgical options at this time 4. History of tobacco abuse: * Patient quit smoking 10/28/1996 after 30 years of 2.5 pack/day history 5. Vaccination status: * Covid vaccination with Pfizer x2+ a booster * Pneumococcal vaccination x2 * Influenza vaccination 06/2021 Thank you very much for including us in the care of this patient. The pulmonary service will sign off today after draining the Pleurx catheter. Please feel free to reconsult or call with questions. Paperwork will be submitted through case management for supplies for the Pleurx catheter for the patient by the pulmonary team. Admission and Anticipated Discharge Date Admission Date: October 18, 2021 Supervising Physician Co-Signing Physician Notes I saw and evaluated the patient with Rommel Vaca, and agree with findings and plan as documented in the note. In distress secondary to pain in the back. Does complain of shortness of breath especially when he is laying flat Denies any significant chest pain No nausea or vomiting On physical exam patient had significant decrease in left-sided breath sounds Patient had thoracentesis done earlier this month which showed metastatic adenocarcinoma Overall prognosis of the patient is very poor. Case was discussed in front of the . They are willing to go ahead with a Pleurx catheter other than drainage. He is on Plavix. Risk of bleeding was explained to the patient he understands and agrees to go ahead with it. I do think patient likely has trapped lung because of the chronic pleural effusion as well as cancer. We will put place catheter later today. Please note the above document was generated using voice recognition software. It may contain grammatical, syntax or spelling errors.Any formal questions or concerns about the content, text or information contained within the body of this dictation should be directly addressed to the provider for clarification. Subjective Attending: Dr. Hutton 76-year-old male with malignant pleural effusion diagnosed 09/26/2021. Pleurx catheter placed yesterday on the left side by Dr. Hutton. 1700 mL of serosanguineous fluid was removed. Patient states his shortness of breath is improved. He has some irritation at the tunneling site of the Pleurx catheter. He has no fever or chills. No hemoptysis. Other than discomfort at the site he has no new complaints. Review of Systems Review of Systems: All systems reviewed & are unremarkable except as noted in Subjective Physical Exam Physical Exam: GENERAL : No acute distress. Patient is somewhat anxious EYES: No icterus, gaze conjugate NOSE: No evidence of epistaxis. Nasal cannula in place MOUTH: No lesions or candidiasis NECK: Supple LUNGS: Crackles bilaterally. There is better air movement on the left side. Patient able to take deep inspiration of breath with minimal cough. HEART: Regular, rate controlled ABDOMEN: Soft, NT, ND, BS Present EXTREMITIES: Bilateral LE edema, pedal pulses soft. NEURO: A&OX3 Results & Data Results & Data ([facility]) Vital Signs (Past 12 Hours) Vital Signs Temp Pulse Resp BP Pulse Ox 10/20/21 11:38 36.8 C 79 20 111/74 95 10/20/21 07:40 84 18 91 10/20/21 03:00 36.4 C L 90 18 106/63 93 Laboratory Results 10/20/21 06:49 10/20/21 06:49 10/18/21 16:55 Troponin I 0.028 COVID-19 Results 10/18/21 17:30 SARS-CoV-2 (PCR) NEGATIVE PG Care Time/CCT Total # of Minutes Spent Total Time Spent with Patient: Total time spent is greater than 50% in coordination of care (as documented) at patient's floor/unit and/or counseling patient: 30 minutes Coding Level of Care Code 59145 Subseq Hosp Care Lvl 2 Diagnoses Pleural effusion J90 Lung cancer C34.[address] of the chest R93.89 PAD (peripheral artery disease) I73.9 Pulmonary nodules/lesions, multiple R91.8 Time Spent (min) 30
[2021-10-20] MEDS: DIGOXIN 0.25 MG TAB PO SCH (15:57)
[2021-10-20] MEDS: HYDROmorphone INJ 0.5 MG/0.5 ML SYR IV PRN (15:57)
[2021-10-20] MEDS ORDERED: VANCOMYCIN TROUGH ONE (17:30)
--- NOTE | 2021-10-20 17:54 | Billing Data ---
Date of Service October 20, 2021 Coding Level of Care Code 02916 Subseq Hosp Care Lvl 2
[2021-10-20] MEDS ORDERED: HYDROmorphone INJ 0.5 MG/0.5 ML SYR IV STA (19:40)
[2021-10-20] MEDS: DOXAZosin MESYLATE TAB 2 MG TAB PO SCH (20:13)
[2021-10-20] MEDS: traZODone HCL 100 MG TAB PO SCH (20:13)
[2021-10-20] MEDS ORDERED: INSULIN GLARGINE SOLOSTAR 100 UNITS/ML 3 ML PEN SQ SCH (21:00)
[2021-10-21] MEDS: HYDROmorphone INJ 0.5 MG/0.5 ML SYR IV PRN ×2 (01:05→10:53)
[2021-10-21] MEDS: PIPERACILLIN/TAZOBACTAM 4.5 GM in DEXTROSE 5% 100 ML IV SCH (02:34)
[2021-10-21] MEDS: guaiFENesin/CODEINE 100MG/10MG 5ML UDC PO SCH ×4 (02:34→20:58)
--- NOTE | 2021-10-21 04:42 | Billing Data ---
Date of Service October 21, 2021 Coding Level of Care Code 71906 Initial Inpt Care Lvl 3
--- NOTE | 2021-10-21 05:11 | Hospitalist Progress Note ---
Date of Service October 21, 2021 Assessment & Plan (1) Acute respiratory failure with hypoxia: Plan: 76 year old male PMHx recent diagnosis metastatic adenocarcinoma, prostate cancer s/p prostatectomy, HTN, GERD, HLD, PAD, CAD s/p CABG on Plavix admitted for hemoptysis with pleural effusion. Acute Hypoxic Respiratory Failure -- baseline 3L O2 requirement; mildly improving -Primarily secondary to large left-sided malignant pleural effusion (in setting of recently diagnosed metastatic adenocarcinoma) -Also possible contributory from superimposed pulmonary infection? -Continues to require over-home requirement - about at 5L right now. Ween as tolerated. -Will require 2-Step prior to discharge -Continue antimicrobials, PleurX drain care - care described below -Continue mucociliary clearance: flutter valve, DuoNeb -Will recheck CXR Malignant Pleural Effusion -With concurrent AHRF, as described above, in the setting of newly diagnosed metastatic adenocarcinoma and pulmonary mass -Pulmonary previously consulted: PleurX catheter 10/19 - drained approx. 1700cc -Education provided re: home management -Continue draining qAM Possible Superimposed PNA -CXR demonstrating large L-sided pleural effusion, possibly with superimposed opacities concerning for infection -Work-up as follows: -Persistent and elevating leukocytosis - now upwards of 20 -MRSA nare negative -- vancomycin discontinued -Procal NEGATIVE -Transition from Zosyn -> cefepime given ongoing GIA -Discontinue vancomycin given (-) MRSA nares GIA -- BUN 54 / Cr 2.5 (BUN/Cr=22) on 10/21 - Baseline creatinine 1.1-1.3 on review of records - Worsening from yesterday - Likely secondary to intravascular volume depletion and hypoalbuminemia - Proceed with NSS 500cc x 1 at 80cc/hr - Can consider 25g of 25% albumin for further intravascular expansion - PO fluid goals set and reviewed with patient - UOP adequate; monitor. - Check FENa Leukocytosis - Worsening leukocytosis (20) in setting of the above issues; predominantly with PMNs and +L shift - Procalcitonin negative, BCX - NGTD - Unclear etiology: possibly stress demargination and component from ?PNA; no evidence of cellulitis, bowel issues. - Check UA and send for UCX with catheter in-place - Continue cefepime for now. MRSA nare negative - no current indication for MRSA coverage Hyponatremia - Persistently hyponatremic throughout stay, though some of the values - when corrected for BSGs - are normal - Likely mixed etiology: hypoalbuminemia, dehydration (GI + hyperglycemia), possible component of SIADH in setting of metastatic disease - Check FENa, sOsm to further elucidate cause - Monitor, asymptomatic Atrial Fibrillation with RVR - New-onset during last admission earlier this month admission ECG c/w AFib - Rates elevated overnight in setting of worsening GIA, suspect secondary to intravascular depletion. Proceed with NSS, PO intake. - Continue metoprolol at current dosing. - [id number] = 4. Patient not currently on oral anticoagulation. Will discuss. Opt to continue Plavix but d/c ASA if initiated. - Continue heparin for now - Maintain K > 4, Mg > 2, Phos > 3 Metastatic Adenocarcinoma - Primary source unclear at this time. Concern for upper GI as source. Patient also has known history of prostate adenocarcinoma s/p TURP - With evidence of numerous pathologic LNs within the lungs and chest, as well as a pulmonary mass that is compressing pulmonary artery - Follows with Dr. Damon at [facility] [place] - appropriate for palliative chemo/radiation upon discharge - Unfortunately, prognosis seems quite guarded at this point - Code status discussed by pulmonary team, changed to DNR/DNI Type 2 Diabetes Mellitus - Glycemic consult ongoing - appreciate adjustments and recommendations - Continue ACHS BSG checks, SSI - goal 110-140 HTN - Continue metoprolol tartrate, losartan History of Prostate Cancer -Continue doxazosin home regimen. Depression -Continue Prozac home regimen. Diet:DM2 Code Status: DNR/DNI DVT PPX:Heparin PT/OT:consulted Case Management:consulted Dispo:Tele (2) Uncontrolled type 2 diabetes mellitus with neurologic complication, with long-term current use of insulin: (3) Lung cancer: (4) Atrial fibrillation: (5) Prostate CA: Admission and Anticipated Discharge Date Admission Date: October 18, 2021 Supervising Physician Co-Signing Physician Notes Patient seen and examined, chart reviewed, case discussed with Dr. Almeida and I agree with the assessment and plan as above except as otherwise noted 76-year-old male with a history of pleural effusion with prior diagnostic thoracentesis showing adenocarcinoma of unknown primary, suspicious for GI origin on pathology. Patient subjectively reports no change . g. Endorses some left sided rib pain at site of Pleurx placement, otherwise denies pain. Continues to have shortness of breath and difficulty especially when laying flat. On exam patient sitting up in chair, no acute distress, appears chronically ill. Left Pleurx in place, no surrounding bleeding/purulence/discharge. Dressing in place C/C/I. Greatly diminished left breath sounds, right breath sounds with moderate air movement and without wheezing. Abdomen nontender. Acute respiratory failure with hypoxia: Suspect due to severe malignant effusion, Pleurx catheter placed. Pending fluid removal today at bedside, and to be taught how to do this today.. Patient remains with shortness of breath and difficulty laying flat. Will remove fluid today and will place daily order to remove fluid from pleurex. Removed about 300 ml on 10/21 Adenocarcinoma: Diagnosed 09/26/21: Given extensive disease and metastasis patient appropriate for palliative Radiation/chemo. follows with Dr. Damon. Patient is been evaluated for palliative radiation for mediastinal lung mass due to compression and follow-up PET/CT pending as outpatient. Following prolonged discussion between patient and pulmonary team today patient moved to DNR/DNI status. Pancreatic cyst: Pancreatic cyst 1.8 cm as below. Patient unable to lay flat to tolerate MRI at this time, may consider additional follow-up once pleural effusion fluid removed and orthopnea improved DM: As above A. fib: Adequately rate controlled at this time, continue medications as above Diarrhea: Improving, no BMs today. CTabdomen no inflammatory change of Mesentery appreciated. Homogenous attenuation of pancreatic parenchyma and interval development of pancreatic cyst of 1.8 cm, patient not able to lay flat to tolerate a MRI at this time. If diarrhea recurs can consider symptomatic treatment, also? Pancreatic insufficiency given findings above. Subjective Continued to require elevated O2 overnight at approx. 6L. Says he's feeling lousy this morning - appetite isn't strong, but pain isn't particularly bad. Says his left side is comfortable. Breathing comfortably. No chest pain or pressure. No nausea or vomiting. Review of Systems Review of Systems: as per HPI Physical Exam Physical Exam: General: Tired-appearing 76yoM with nasal cannula in place, fully A&O, NAD. Cardiac: Tachycardic with irregular rhythm. S1/S2 present without m/r/g. Pulmonary: Expiratory wheezes heard predominantly throughout R lung. Significantly diminished lung sounds through L lung. Abdominal: NABS, soft, nontender, nondistended. Extremities: 3+ pitting edema in the lower extremities bilaterally. Back: Bandage in place over lumbar spine. There is evidence of erythema at the gluteal cleft with clear demargination. Results & Data Results & Data ([facility]) Vital Signs (Past 12 Hours) Vital Signs Temp Pulse Pulse Resp BP Pulse Ox 10/21/21 03:24 37.4 C 116 H 18 127/71 92 10/21/21 03:22 98 H 10/21/21 00:14 37.4 C 87 16 98/63 L 94 10/20/21 19:29 37.0 C 99 H 18 86/41 L 95 10/20/21 17:41 36.7 C 88 20 113/67 94 Resident Activity Tracking Resident Involvement: Resident Care Provided Care Provided: Adult Hospital Medicine
[2021-10-21 06:06] LABS: Eosinophils # (auto) 0.02 K/uL (0-0.5); Eosinophils % (auto) 0.1 %; Hematocrit (blood only) 36.2 % (42-52); Hemoglobin 11.2 g/dL (14.0-18.0); Immature Granulocytes % (auto) 0.5 %; Lymphocytes # (auto) 1.09 K/uL (1.2-3.4); Lymphocytes % (auto) 5.3 %; Mean Corpuscular Hemoglobin 27.7 pg (25-34); Mean Corpuscular Hgb Conc 30.9 g/dL (32-36); Mean Corpuscular Volume 89.6 fL (80-100); Mean Platelet Volume 8.2 fL (7.4-10.4); Monocytes # (auto) 1.28 K/uL (0.11-0.59); Monocytes % (auto) 6.2 %; Neutrophils # (auto) 18.07 K/uL (1.4-6.5); Neutrophils % (auto) 87.9 %; Platelet Count 526 K/uL (130-400); RDW Coefficient of Variation 15.5 % (11.5-14.5); RDW Standard Deviation 51.2 fL (36.4-46.3); Red Blood Count 4.04 M/uL (4.7-6.1); White Blood Count 20.56 K/uL (4.8-10.8)
[2021-10-21] MEDS: HEPARIN SOD 5,000 UNIT/0.5 ML VIAL SQ SCH ×3 (06:33→21:10)
[2021-10-21 06:52] LABS: Albumin Globulin Ratio 0.3 (0.9-2); Albumin Level 1.4 gm/dl (3.4-5.0); BUN Creatinine Ratio 21.6 (10-20); Bilirubin,Total 0.4 mg/dl (0.2-1); Est GFR (African American) 28.1 ml/min; Est GFR (Non-African American) 24.3 ml/min; Globulin 4.5 gm/dl (2.5-4.0); Total Protein 5.9 gm/dl (6.4-8.2)
[2021-10-21] MEDS: CLOPIDOGREL BISULFATE 75 MG TAB PO SCH (08:07)
[2021-10-21] MEDS: FAMOTIDINE 10 MG TABLET PO SCH (08:07)
[2021-10-21] MEDS: FLUoxetine HCL 20 MG CAP PO SCH (08:07)
[2021-10-21] MEDS: ASPIRIN 325 MG ECTAB PO SCH (08:07)
[2021-10-21] MEDS: METOPROLOL TARTRATE 25 MG TAB PO SCH ×2 (08:07→20:57)
[2021-10-21] MEDS ORDERED: SODIUM CHLORIDE 0.9% 500 ML IV SCH (08:30)
[2021-10-21] MEDS: INSULIN ASPART PER UNIT SC SCH ×4 (08:31→20:59)
[2021-10-21] MEDS ORDERED: INSULIN GLARGINE SOLOSTAR 100 UNITS/ML 3 ML PEN SQ SCH (09:00)
[2021-10-21] MEDS: CEFEPIME 2,000 MG in SYRINGE 0 ML IV SCH ×2 (10:43→21:08)
--- NOTE | 2021-10-21 11:26 | XRay Report ---
XR chest 1V portable CLINICAL HISTORY: pleural effusion, oxygen req TECHNIQUE: Single frontal radiograph of the chest was obtained. Comparison: Comparison is made to chest one view 10/19/2021 FINDINGS: No lines and tubes are seen. Rightward mediastinal shift is seen. Opacification of left hemithorax is again seen. There is prominence of the pulmonary vasculature. No right pneumothorax or pleural effus ion. IMPRESSION: Interval enlargement of the left pleural effusion with increased rightward mediastinal shift. The lef t lung is opacified likely due to atelectasis, superimposed airspace disease cannot be excluded. Ther e is moderate pulmonary edema. ACT 112: Negative or not required by law. Electronically signed by: Kostas Abernathy M.D. 10/21/2021 11:25 AM
[2021-10-21 13:10] LABS: Appearance Urine Turbid (Clear); Bilirubin Urine Negative (Negative); Blood Urine 3+ (Negative); Color Urine Dark Yellow; Epithelial Cell Urine Auto >30 /lpf (0-5); Glucose Urine UA Trace (Negative); Ketones Urine Trace (Negative); Leukocyte Esterase Urine 2+ (Negative); Nitrite Urine Negative (Negative); Protein Urine 2+ (Negative); Urobilinogen Urine Negative (Negative); WBC Urine Automated >30 /hpf (0-5)
[2021-10-21 13:27] LABS: RBC Urine Automated >30 /hpf (0-4)
[2021-10-21 13:30] LABS: Bacteria Urine Automated 1+ (Negative)
[2021-10-21 16:21] LABS: BUN Creatinine Ratio 20.9 (10-20); Calcium 8.7 mg/dl (8.5-10.1); Creatinine Clr Calc Pharmacy 26.9 ml/min; Est GFR (African American) 24.6 ml/min; Est GFR (Non-African American) 21.3 ml/min; Potassium 5.3 mmol/L (3.5-5.1)
[2021-10-21] MEDS: DIGOXIN 0.25 MG TAB PO SCH (17:14)
[2021-10-21] MEDS: traZODone HCL 100 MG TAB PO SCH (20:56)
[2021-10-21] MEDS: DOXAZosin MESYLATE TAB 2 MG TAB PO SCH (20:59)
[2021-10-21] MEDS: INSULIN GLARGINE SOLOSTAR 100 UNITS/ML 3 ML PEN SQ SCH (21:00)
[2021-10-21] MEDS: MoRPHine SULFATE 2 MG/ML CARP IV PRN (21:07)
[2021-10-21] MEDS: MELATONIN 3 MG TAB PO PRN (23:22)
[2021-10-22] MEDS: guaiFENesin/CODEINE 100MG/10MG 5ML UDC PO SCH ×4 (05:12→19:50)
[2021-10-22] MEDS: HEPARIN SOD 5,000 UNIT/0.5 ML VIAL SQ SCH ×3 (05:13→20:30)
[2021-10-22] MEDS: HYDROmorphone INJ 0.5 MG/0.5 ML SYR IV PRN ×3 (05:19→19:50)
--- NOTE | 2021-10-22 06:14 | Hospitalist Progress Note ---
Date of Service October 22, 2021 Assessment & Plan (1) Acute respiratory failure with hypoxia: Plan: 76 year old male PMHx recent diagnosis metastatic adenocarcinoma, prostate cancer s/p prostatectomy, HTN, GERD, HLD, PAD, CAD s/p CABG on Plavix who presented to weakness and diarrhea, subsequently found to have worsening AHRF in setting of known malignant pleural effusion and pulmonary mass compressing the pulmonary artery. Unfortunately, throughout his course, he has developed a worsening GIA that has been difficult to treat in the setting of his hypervolemia Metastatic Adenocarcinoma - Primary source unclear at this time. Concern for upper GI as source. Patient also has known history of prostate adenocarcinoma s/p TURP - With evidence of numerous pathologic LNs within the lungs and chest, as well as a pulmonary mass that is compressing pulmonary artery - Follows with Dr. Damon at [facility] [place] - per chart review, was planning for palliative chemo/radiation upon discharge - Anticipate holding goals of care discussion today -- prognosis seems quite guarded with worsening GIA, pleural effusion, general deconditioning, and deteriorating QOL - Code status discussed by pulmonary team, changed to DNR/DNI Acute Hypoxic Respiratory Failure -- baseline 3L O2 requirement; mildly improving -Primarily secondary to large left-sided malignant pleural effusion (in setting of recently diagnosed metastatic adenocarcinoma) -Also possible contributory from superimposed pulmonary infection, known pulmonary metastatic disease, and pulmonary edema -Continues to require over-home requirement - about at 5-6L consistently - ween as able -Continue antimicrobials, PleurX drain care -Continue mucociliary clearance: flutter valve, DuoNeb Malignant Pleural Effusion -With concurrent AHRF, as described above, in the setting of newly diagnosed metastatic adenocarcinoma and pulmonary mass -Pulmonary previously consulted: PleurX catheter 10/19 - drained approx. 1700cc, on 10/21 drained approx. 250cc -CXR (10/22) - Interval enlargement of effusion, no true mediastinal shift -Likely will always have degree of effusion given trapped lung at LEFT base -Drain q48h - education provided to by nursing yesterday -Pleural effusion will almost always recur despite drainage - no further indicated therapies at this time after speaking with Pulmonary GIA -- FENa = 0.1% - Baseline creatinine 1.1-1.3 on review of records - Hypervolemic on exam: 3+ bilateral pitting edema, palmar prominence, +JVD, pulmonary edema on CXR - Continues to deteriorate: BUN 66, Cr 3.34 (from 54, 2.5 yesterday), eGFR 17.2 (from 21), UOP at 0.1cc/kg/hr - Evidence of rising potassium on daily labs (5.7 today) - In setting of hypervolemic exam, likely secondary to intravascular volume depletion from hypoalbuminemia - Nephrology consultation placed: appreciate insight on fluid therapies (if indicated right now) vs. diuresis - Avoid nephrotoxic medications - Renal diet Leukocytosis - Worsening leukocytosis (20) in setting of the above issues; predominantly with PMNs and +L shift - Procalcitonin negative, BCX - NGTD - Unclear etiology: possibly stress demargination and component from ?PNA; no evidence of cellulitis, bowel issues. - UA possibly supportive of infection - Continue cefepime for now - Await UCX Possible Superimposed PNA -CXR demonstrating large L-sided pleural effusion, possibly with superimposed opacities concerning for infection -Work-up as follows: -Persistent leukocytosis x 2 days at around ~20 with L shift -MRSA nare negative -- vancomycin discontinued -Procal NEGATIVE -On cefepime -Vancomycin discontinued - negative MRSA nares Hyponatremia (~129-130) - Persistently hyponatremic throughout stay, though some of the values - when corrected for BSGs - are normal - Likely mixed etiology: hypervolemia from hypoalbuminemia, dehydration (GI + hyperglycemia), possible component of SIADH in setting of metastatic disease - Serum osmolarity normal - Monitor, asymptomatic Atrial Fibrillation -- RVR now resolved - New-onset during last admission earlier this month admission ECG c/w AFib - Rates elevated overnight in setting of worsening GIA, suspect secondary to i ntravascular depletion. Proceed with NSS, PO intake. - Continue metoprolol at current dosing. - Not previously started on anticoagulation given risk of additional procedures due to lung malignancy - Continue heparin PPX for now - Maintain K > 4, Mg > 2, Phos > 3 Type 2 Diabetes Mellitus - Glycemic consult ongoing - appreciate adjustments and recommendations - Continue ACHS BSG checks, SSI - goal 110-140 HTN - Continue metoprolol tartrate, losartan with hold parameters in place History of Prostate Cancer -Continue doxazosin home regimen. Depression -Continue Prozac home regimen Pancreatic Cyst - Incidentally noted on CT-A/P on 10/18: "...cyst within the head of the pancreas measuring 1.8cm. No other pancreatic mass identified" - Recommend MRI once AHRF is improved -- would be unable to tolerate at this time secondary to orthopnea, pending further goals of care discussion Diarrhea -- seems to be chronic, noted in outpatient PCP notes - Etiology unclear. Intermittent. C. diff negative, enteric pathogen panel negative (10/04) - CT-A/P noting no significant inflammatory findings, though the attenuation of the pancreatic parenchyma is noted - Consider symptomatic treatment +/- pancreatic enzymes for ?pancreatic insufficiency p.r.n. Diet:DM2 Code Status: DNR/DNI DVT PPX:Heparin PT/OT:consulted Case Management:consulted Dispo:Tele (2) Uncontrolled type 2 diabetes mellitus with neurologic complication, with long-term current use of insulin: (3) Lung cancer: (4) Atrial fibrillation: (5) Prostate CA: Admission and Anticipated Discharge Date Admission Date: October 18, 2021 Supervising Physician Co-Signing Physician Notes Patient seen and examined, chart reviewed, case discussed with Dr. Jiang and I agree with the assessment and plan as above except as otherwise noted 76-year-old male with a history of pleural effusion with prior diagnostic thoracentesis showing adenocarcinoma of unknown primary, suspicious for GI origin on pathology. Patient subjectively reports no change . g. Endorses some left sided rib pain at site of Pleurx placement, otherwise denies pain. Continues to have shortness of breath and difficulty especially when laying flat. On exam patient sitting up in chair, no acute distress, appears chronically ill. Left Pleurx in place, no surrounding bleeding/purulence/discharge. Dressing in place C/C/I. Greatly diminished left breath sounds, right breath sounds with moderate air movement and without wheezing. Abdomen nontender. Acute respiratory failure with hypoxia: Suspect due to severe malignant effusion, Pleurx catheter placed. Pending fluid removal today at bedside, and to be taught how to do this today.. Patient remains with shortness of breath and difficulty laying flat. Continue daily drainage from pleurex cath Due to worsening kidney function and third spacing, consulted nephrology. will order bolus of albumin and gentle diuresis. Albumin 25 g 25% now and in AM. Adenocarcinoma: Diagnosed 09/26/21: Given extensive disease and metastasis patient appropriate for palliative Radiation/chemo. follows with Dr. Damon. Sylwia martinez is been evaluated for palliative radiation for mediastinal lung mass due to compression and follow-up PET/CT pending as outpatient. Following prolonged discussion between patient and pulmonary team today patient moved to DNR/DNI status. Pancreatic cyst: Pancreatic cyst 1.8 cm as below. Patient unable to lay flat to tolerate MRI at this time, may consider additional follow-up once pleural e ffusion fluid removed and orthopnea improved DM: As above A. fib: Adequately rate controlled at this time, continue medications as above Due to reduced creatine clearance, decreased dig to 62.5 mcg. Diarrhea: Improving, no BMs today. CTabdomen no inflammatory change of Mesentery appreciated. Homogenous attenuation of pancreatic parenchyma and interval development of pancreatic cyst of 1.8 cm, patient not able to lay flat to tolerate a MRI at this time. If diarrhea recurs can consider symptomatic treatment, also? Pancreatic insufficiency given findings above. Subjective Not feeling too great this morning. Reports being in pain around the spot he showed to me yesterday (sacral region). Says his breathing actually feels OK - 250cc drained yesterday afternoon, 75cc overnight. Unfortunately BMs started again last night - multiple loose stools that continued into this morning. We did discuss his current status - kidney functioning is worsening in the context of this enlarging pleural effusion. Thankfully, his oxygen requirement has not increased, and his vitals have remained stable. However, I asked him abo ut preliminary plans for the outpatient setting, and he said "something about radiation but we haven't set that up yet." I did ask him if the goal of this radiation was to improve quality and quantity of life, which he confirmed yes. I shared that I am concerned that his kidney function continues to worsen and that, in the context of his above problems, his hypervolemic status, and worsening electrolytes, his case is worrisome. I opened the idea of the role of medicines and procedures in cases like this -- on one hand, to extend life in the aim of fighting disease, and in the other, improving quality of life/decreasing pain and air hunger with understanding/knowledge that disease course may take their natural course and worsen. He is amenable to me calling the to introduce these ideas. Review of Systems Review of Systems: As per HPI Physical Exam Physical Exam: General: Tired-appearing 76yoM with nasal cannula in place, fully A&O, NAD. Neck: No evidence of tracheal deviation. There is notable jugular venous pulsation approx. ~3 fingerbreadths above the R clavicle. +Hepatojugular reflux. Cardiac: Normal rate with irregular rhythm. S1/S2 present without m/r/g. Pulmonary: Expiratory wheezes heard predominantly throughout R lung. Significantly diminished lung sounds through L lung. Abdominal: NABS, soft, nontender, nondistended. Extremities: 3+ pitting edema in the lower extremities bilaterally. Results & Data Results & Data ([facility]) Vital Signs (Past 12 Hours) Vital Signs Temp Pulse Pulse Resp BP BP Pulse Ox 10/22/21 04:00 36.6 C 89 18 132/69 93 10/22/21 00:00 37.9 C H 81 81 120/70 92 10/21/21 19:13 36.4 C L 91 H 20 117/73 92 Resident Activity Tracking Resident Involvement: Resident Care Provided Care Provided: Adult Hospital Medicine
[2021-10-22 08:25] LABS: Basophils # (auto) 0.01 K/uL (0-0.2); Eosinophils # (auto) 0.02 K/uL (0-0.5); Eosinophils % (auto) 0.1 %; Hematocrit (blood only) 37.7 % (42-52); Hemoglobin 11.5 g/dL (14.0-18.0); Immature Granulocytes # (auto) 0.09 K/uL (0.00-0.02); Immature Granulocytes % (auto) 0.4 %; Lymphocytes # (auto) 1.12 K/uL (1.2-3.4); Lymphocytes % (auto) 5.4 %; Mean Corpuscular Hemoglobin 27.6 pg (25-34); Mean Corpuscular Hgb Conc 30.5 g/dL (32-36); Mean Corpuscular Volume 90.4 fL (80-100); Mean Platelet Volume 8.3 fL (7.4-10.4); Monocytes % (auto) 6.7 %; Neutrophils # (auto) 18.26 K/uL (1.4-6.5); Neutrophils % (auto) 87.4 %; Platelet Count 630 K/uL (130-400); RDW Coefficient of Variation 15.8 % (11.5-14.5); RDW Standard Deviation 52.4 fL (36.4-46.3); Red Blood Count 4.17 M/uL (4.7-6.1)
[2021-10-22 08:33] LABS: Partial Thromboplastin Time 25.4 Seconds (21.0-31.0)
[2021-10-22 08:42] LABS: Albumin Level 1.4 gm/dl (3.4-5.0); BUN Creatinine Ratio 19.8 (10-20); Creatinine Clr Calc Pharmacy 22.8 ml/min; Est GFR (African American) 19.9 ml/min; Est GFR (Non-African American) 17.2 ml/min; Potassium 5.6 mmol/L (3.5-5.1)
[2021-10-22 08:45] LABS: Albumin Globulin Ratio 0.3 (0.9-2); Globulin 5.1 gm/dl (2.5-4.0); Total Protein 6.5 gm/dl (6.4-8.2)
[2021-10-22] MEDS: FAMOTIDINE 10 MG TABLET PO SCH (08:48)
[2021-10-22] MEDS: ASPIRIN 325 MG ECTAB PO SCH (08:48)
[2021-10-22] MEDS: CLOPIDOGREL BISULFATE 75 MG TAB PO SCH (08:50)
[2021-10-22] MEDS: FLUoxetine HCL 20 MG CAP PO SCH (08:50)
[2021-10-22] MEDS: METOPROLOL TARTRATE 25 MG TAB PO SCH ×2 (08:51→20:31)
[2021-10-22 08:55] LABS: Bilirubin,Total 0.3 mg/dl (0.2-1)
[2021-10-22] MEDS ORDERED: INSULIN GLARGINE SOLOSTAR 100 UNITS/ML 3 ML PEN SQ SCH (09:00)
[2021-10-22] MEDS: INSULIN ASPART PER UNIT SC SCH ×4 (09:05→20:27)
[2021-10-22] MEDS: CEFEPIME 2,000 MG in SYRINGE 0 ML IV SCH (09:07)
[2021-10-22] MEDS ORDERED: SODIUM CHLORIDE 0.9% 500 ML IV SCH ×2 (09:30→10:45)
--- NOTE | 2021-10-22 09:58 | Pharmacy Report ---
Pharmacy Glycemic Short Note 2 - Date of Service October 22, 2021 - Glycemic Short BSG Results (Last 24 hours): 10/21/21 10/21/21 10/21/21 11:13 15:56 16:44 Glucose 73 POC Glucose 158 H 73 10/21/21 10/22/21 10/22/21 20:51 04:49 07:10 Glucose 142 H POC Glucose 119 H 153 H 10/22/21 07:26 Glucose POC Glucose 232 H OUTPATIENT ANTIDIABETIC REGIMEN: * Lantus 60 units BID * Regular insulin 35 units TID meals * A1c 8.5% 09/27/21 ASSESSMENT: 10/22 * Pt with LOW BSG yesterday AM. Scr trending upwards. Insulin "sensitivity" increases with GIA therefore all basal held yesterday. * BSGs trending upwards now without basal insulin on board. Will conservatively resume basal insulin and titrate based on BSG trends. 10/19 * 76 year old male admitted with acute respiratory failure, pleural effusion, recent metastatic adenocarcinoma diagnosis (09/28), uncontrolled type 2 diabetic, pulmonary consult, IV vancomycin + zosyn. * Hyperglycemic on admission, recent admission earlier this month patient required about half of his outpatient insulin doses, will begin with similar insulin dosing and titrate to goal. PLAN FOR INPATIENT GLYCEMIC CONTROL: * Basal insulin * Lantus 10 units SQ x 1 dose this AM * Lantus 0-10 units SQ HS this evening * Will continue to re-evaluate dosing on a daily basis * Bolus insulin * NovoLog per scale ACHS or Q6hrs while NPO * Goal Range: Low 110 mg/dL - High 140 mg/dL * Correction Factor: 20 mg/dL/unit * Nutritional / Prandial insulin per carb ratio of 1 unit per 6 grams CHO consumed PLAN FOR DISCHARGE: * to be determined
--- NOTE | 2021-10-22 10:18 | Billing Data ---
Date of Service October 21, 2021 Coding Level of Care Code 38830 Subseq Hosp Care Lvl 2
--- NOTE | 2021-10-22 11:16 | XRay Report ---
XR chest 1V portable CLINICAL HISTORY: Increased oxygen requirement, known pleural eff. COMPARISON STUDY: 10/21/2021 TECHNIQUE: 1 view of the chest FINDINGS: Single frontal view of the chest demonstrates almost complete opacification of left hemithorax which is unchanged. There is displacement of the heart mediastinum to the right. There is previous sternoto my sutures. Right hemithorax is clear. There is no evidence for right pleural effusion. There is no e vidence for vascular congestion. There is no acute osseous pathology. IMPRESSION: Compared to the previous study, there is again almost complete opacification left hemitho rax related to pleural effusion with mild displacement heart and mediastinal structures to the right. Right hemithorax remains clear. ACT 112: Negative or not required by law. Electronically signed by: Frankie Pavon M.D. 10/22/2021 11:15 AM
--- NOTE | 2021-10-22 14:15 | Nephrology Consultation ---
Date of Consultation October 22, 2021 Assessment & Plan (1) GIA (acute kidney injury): Clinically consistent with prerenal azotemia and ATN. Granular casts in urine following recent Ct with contrast suggest a component of ATN despite notably low urine sodium. TBW high but intravascularly dry. EAV low. Suggest holding NSS infusion. Consider intermittent boluses of colloid/albumin as needed. Loop diuretics with colloid to encourage urine output. Despite notable third spacing of fluid, the patient is relatively comfortably. I do feel aggressive diuresis is required at this time. Start patiromer 8.4 grams daily for hyperkalemia. I would hold antihypertensives including doxazosin, as tolerated. Encourage dietary protein intake. Document strict I/O's. Repeat metabolic profile tomorrow AM. I did not discuss dialysis in detail with the patient today. Unfortunately, due to multiple medical comorbidities including metastatic cancer and poor functional status, Mr. 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 Hold Jardiance, losartan, and metformin. Medications appropriate for kidney dysfunction. Suspect Q 24 hour dosing of cefepime would be acceptable. Monitor for signs of digoxin toxicity. (2) Peripheral edema: Hold IVF. Colloid and loop diuretics PRN to encourage urine output. Monitor urine sodium as reference for anticipated potential response to diuretics. (3) Hypotension: (4) Pleural effusion: Prognosis is unfortunately very poor. Consider palliative care consultation to assist with goals of care. I discussed the plan of care in detail with Dr. Jiang today. History of Present Illness Reason for Consultation: GIA Requesting Physician: Leobardo Servin Attending Physician: Leobardo Servin History of Present Illness Mr. Dion Sky is a 76-year-old male with a history of prostate cancer and metastatic adenocarcinoma of unknown primary (favoring stomach or GI). He is s/p prostatectomy in '02 followed by XRT in and then Lupron started in . Earlier this month, he presented with a malignant pleural effusion on the right. Imaging continues to demonstrate a substantial effusion despite minimal recent drainage from indwelling chest tube. Mr. Sky was recently admitted with increasing dyspnea and BL LE edema. Prior to admission, he had seen Dr. Small in the cardiology clinic and furosemide was increased and amlodipine stopped. Mr. Ashley then presented to [facility] on 10/18 with hemoptysis. Medical history is also notable for hypertension, PAF, diabetes mellitus, CAD s/p CABG x 1 v, and being a former smoker. Creatinine was 1.1 mg/dL on admission and has progressively risen to 3.3 mg/dL. Urine output has now notably dropped off. I/O yesterday 970/685. An infusion of NSS was then provided to encourage urine output. Urine sodium notably low at 7. Laboratory studies demonstrating hyponatremia and hyperkalemia. UA demonstrating 2+ protein and trace glucose and well as trace ketones 3+ blood, >30 RBC, >30 WBC, and 1-[address] with contrast obtained on 10/18 demonstrated unobstructed kidneys with a cyst in the pancreatic head. Imaging also demonstrating increased in right hilar and subcarinal adenopathy as well as moderate pulmonary edema. BP has been persistent low. Heart rate ~100. Metoprolol has been held due to low BP. TTE in August demonstrated mild cLVH and normal LVEF. During my evaluation this afternoon. Mr. Sky reported breathing comfortably but noted he has been very weak. Appetite is poor. He has notable edema of the upper and lower extremities as well as increasing abdominal girth. He was despondent and feeling pessimistic about his overall prognosis. Allergies Allergy/AdvReac Type Severity Reaction Status Date / Time Sulfa (Sulfonamide Allergy Mild Rash Verified 10/18/21 16:25 Antibiotics) sulfamethoxazole Allergy Mild Rash Verified 10/18/21 16:25 [From Bactrim] trimethoprim [From Bactrim] Allergy Mild Rash Verified 10/18/21 16:25 codeine AdvReac Mild Nausea/"wild Verified 10/18/21 16:25 dreams" Home Medications Medication Instructions Recorded Confirmed Type aspirin 325 mg tablet (Filiberto 325 mg PO QAM 05/04/19 10/18/21 History Aspirin) cyanocobalamin (vitamin B-12) 1,000 mcg PO QAM 08/09/20 10/18/21 History 1,000 mcg tablet (Vitamin B-12) insulin syringe-needle U-100 0.5 #600 ea 10/10/20 10/10/21 Rx mL 31 gauge x 5/16" (BD Insulin Syringe Ultra-Fine) metformin 850 mg tablet 850 mg PO TID #270 tab 10/19/20 10/18/21 Rx trazodone 100 mg tablet 100 mg PO HS #30 tab 02/13/21 10/18/21 Rx insulin regular human 100 unit/mL 35 unit SQ TID 30 Days #40 ml 03/24/21 10/18/21 Rx injection solution (Novolin R Regular U-100 Insulin) amlodipine 10 mg tablet (Norvasc) 10 mg PO QAM 07/28/21 10/18/21 History empagliflozin 10 mg tablet 10 mg PO QAM 07/28/21 10/18/21 History (Jardiance) famotidine 10 mg tablet (Acid 10 mg PO QAM 07/28/21 10/18/21 History Resistor Inspector (famotidine)) fluoxetine 20 mg capsule (Prozac) 20 mg PO QAM 07/28/21 10/18/21 History losartan 100 mg tablet (Cozaar) 100 mg PO QAM 07/28/21 10/18/21 History clopidogrel 75 mg tablet (Plavix) 75 mg PO QAM #90 tab 08/31/21 10/18/21 Rx simvastatin 80 mg tablet (Zocor) 80 mg PO HS #90 tab 08/31/21 10/18/21 Rx insulin glargine 100 unit/mL 60 unit SQ BID #11 vial 09/05/21 10/18/21 Rx subcutaneous solution (Lantus U-100 Insulin) Oxygen Home #3 l 09/29/21 10/10/21 Rx digoxin 250 mcg (0.25 mg) tablet 250 mcg PO DAILY@1600 #30 tab 09/29/21 10/18/21 Rx furosemide 40 mg tablet 40 mg PO BID #60 tab 10/13/21 10/18/21 Rx doxazosin 1 mg tablet 1 mg PO HS 10/18/21 10/18/21 History metoprolol tartrate 50 mg tablet 75 mg PO BID 10/18/21 10/18/21 History Patient History Medical History Acid reflux disease Anxiety Atrial fibrillation CAD (coronary artery disease) Chronic kidney disease, stage II (mild) Depression Diabetic nephropathy Diabetic peripheral neuropathy Diabetic retinopathy DM (diabetes mellitus), type 2 Hypercholesterolemia Hypertension Hyponatremia Lung cancer Malignant pleural effusion with metastatic adenocarcinoma PAD (peripheral artery disease) Pleural effusion Malignant pleural effusion with metastatic adenocarcinoma. Diagnostic centesis performed 09/26/2021 Prostate CA Treated with surgery and then radiation in 2001 Stage 2 chronic kidney disease Type 2 diabetes mellitus with stage 2 chronic kidney disease and hypertension Uncontrolled type 2 diabetes mellitus with neurologic complication, with long- term current use of insulin Surgical History History of angiography With right iliac stent placement History of appendectomy History of cardiac cath 1996 @ [facility] with 1 stent placed History of colonoscopy History of heart artery stent 1996--1 stent History of lumbar discectomy History of prostate biopsy malignant History of radical prostatectomy 2001 History of tooth extraction full upper denture History of wisdom tooth extraction S/P CABG x 3 d/t CAD 2006 @ [facility]--follows with Dr. Small Family History Father Myocardial infarction Mother Myocardial infarction Family history of diabetes mellitus Sister Family history of diabetes mellitus Other No family history of adverse response to anesthesia Prostate cancer Denies family history of Ovarian cancer Breast cancer Colorectal cancer Social History Smoking Status: Former smoker Tobacco Type: Cigarettes Number of Years Since Quit: 21; Second Hand Exposure: No; Do You Dip or Chew Tobacco: No; Tobacco Cessation Education Requested by Patient: No Hx Alcohol Use: Yes Alcohol type: beer Alcohol Intake Frequency: 2-4 x/Month Hx Substance Use: No Preferred Language: Montenegrin Communication Ability: Effective Natural Resources Instructor Required: No Beliefs That Will Affect Care: None marital status: Current Living Situation: Spouse current occupational status: retired How many Children do You have: 2 Other Information That Helps Us Care for You: No Feels Safe at Home: Yes Safety Concerns: Feels Safe At This Time Childhood Exposure to Second-Hand Smoke: No caffeine: Yes Dental Care, Regularly: Yes Physical Activity Frequency: 1-2 Times per Week Seatbelt Use: always Sunscreen Use: No Assistive Devices: Glasses and Oxygen - Continuous Assistive Devices Comment: pt uses cane, wheelchair or walker at home Review of Systems Review of Systems: All systems reviewed & are unremarkable except as noted in HPI & below Physical Exam Constitutional: well developed, + obese and + edematous Eyes: + anicteric sclerae; no conjunctival abnormality ENMT: Mouth: no oral mucosal abnormality and oral mucous membranes not dry Neck: normal visual inspection and trachea midline Respiratory: normal respiratory effort Auscultation: + diminished lung sounds Chest tube Cardiovascular: Rate/Rhythm: + tachycardic Heart Sounds: normal S1 and normal S2 Extremities: + edema Gastrointestinal (Abdomen): Inspection/Auscultation: + abdomen distended Percussion/Palpation: abdomen soft; abdomen nontender Musculoskeletal: Extremities: no cyanosis and no clubbing Skin: no rashes and no jaundice Neurologic: Motor/Sensory: no tremor and no asterixis Psychiatric: Orientation: alert and oriented x 3 Genitourinary: Castillo draining dark yellow urine Results & Data ([facility]) Vital Signs (Past 12 Hours) Vital Signs Temp Pulse Pulse Resp BP Pulse Ox 10/22/21 11:48 36.6 C 99 H 20 108/61 91 10/22/21 07:57 36.8 C 89 20 99/59 L 90 10/22/21 07:30 87 10/22/21 04:00 36.6 C 89 18 132/69 93 Laboratory Results Laboratory Results - last 24 hr 10/21/21 10/21/21 10/21/21 15:56 16:44 20:51 WBC RBC Hgb Hct MCV MCH MCHC RDW Std Deviation RDW Coeff of Shlomo Plt Count MPV Immature Gran % (Auto) Neut % (Auto) Lymph % (Auto) Linn % (Auto) Eos % (Auto) Baso % (Auto) Neut # (Auto) Lymph # (Auto) Linn # (Auto) Eos # (Auto) Baso # (Auto) Immature Gran # (Auto) APTT PTT Ratio Sodium 130 L Potassium 5.3 H Chloride 96 L Carbon Dioxide 25 Anion Gap 9.0 BUN 59 H Creatinine 2.80 H Est Cr Clr Drug Dosing 26.9 Est GFR ( Amer) 24.6 Est GFR (Non-Af Amer) 21.3 BUN/Creatinine Ratio 20.9 H Glucose 73 POC Glucose 73 119 H Calcium 8.7 Total Bilirubin AST ALT Alkaline Phosphatase Total Protein Albumin Globulin Albumin/Globulin Ratio 10/22/21 10/22/21 10/22/21 04:49 07:10 07:10 WBC 20.90 H RBC 4.17 L Hgb 11.5 L Hct 37.7 L MCV 90.4 MCH 27.6 MCHC 30.5 L RDW Std Deviation 52.4 H RDW Coeff of Shlomo 15.8 H Plt Count 630 H MPV 8.3 Immature Gran % (Auto) 0.4 Neut % (Auto) 87.4 Lymph % (Auto) 5.4 Linn % (Auto) 6.7 Eos % (Auto) 0.1 Baso % (Auto) 0.0 Neut # (Auto) 18.26 H Lymph # (Auto) 1.12 L Linn # (Auto) 1.40 H Eos # (Auto) 0.02 Baso # (Auto) 0.01 Immature Gran # (Auto) 0.09 H APTT 25.4 PTT Ratio 1.0 Sodium Potassium Chloride Carbon Dioxide Anion Gap BUN Creatinine Est Cr Clr Drug Dosing Est GFR ( Amer) Est GFR (Non-Af Amer) BUN/Creatinine Ratio Glucose POC Glucose 153 H Calcium Total Bilirubin AST ALT Alkaline Phosphatase Total Protein Albumin Globulin Albumin/Globulin Ratio 10/22/21 10/22/21 10/22/21 07:10 07:26 11:39 WBC RBC Hgb Hct MCV MCH MCHC RDW Std Deviation RDW Coeff of Shlomo Plt Count MPV Immature Gran % (Auto) Neut % (Auto) Lymph % (Auto) Linn % (Auto) Eos % (Auto) Baso % (Auto) Neut # (Auto) Lymph # (Auto) Linn # (Auto) Eos # (Auto) Baso # (Auto) Immature Gran # (Auto) APTT PTT Ratio Sodium 129 L Potassium 5.6 H Chloride 94 L Carbon Dioxide 23 Anion Gap 12.0 H BUN 66 H Creatinine 3.34 H D Est Cr Clr Drug Dosing 22.8 Est GFR ( Amer) 19.9 Est GFR (Non-Af Amer) 17.2 BUN/Creatinine Ratio 19.8 Glucose 142 H POC Glucose 232 H 191 H Calcium 9.0 Total Bilirubin 0.3 AST 68 H ALT 60 Alkaline Phosphatase 120 H Total Protein 6.5 Albumin 1.4 L Globulin 5.1 H Albumin/Globulin Ratio 0.3 L PG Care Time/CCT Total # of Minutes Spent Total Time Spent with Patient: Total time spent is greater than 50% in coordination of care (as documented) at patient's floor/unit and/or counseling patient: Coding Level of Care Code 62073 Inpt Consult Level 5 Diagnoses Peripheral edema R60.9 GIA (acute kidney injury) N17.9 Hypotension I95.9 Pleural effusion J90
[2021-10-22] MEDS ORDERED: PATIROMER CALCIUM SORBITEX 8.4 GM PACK PO SCH (15:30)
[2021-10-22] MEDS ORDERED: ALBUMIN 25% 100 mL 25 GM/100 ML VIAL IV ONE (15:45)
[2021-10-22] MEDS ORDERED: DIGOXIN 0.125 MG TAB PO SCH (16:00)
[2021-10-22] MEDS ORDERED: DIGOXIN 0.25 MG TAB PO SCH (16:00)
[2021-10-22] MEDS: INSULIN GLARGINE SOLOSTAR 100 UNITS/ML 3 ML PEN SQ SCH (20:29)
[2021-10-22] MEDS: traZODone HCL 100 MG TAB PO SCH (20:30)
--- NOTE | 2021-10-22 21:29 | Billing Data ---
Date of Service October 22, 2021 Coding Level of Care Code 30686 Subseq Hosp Care Lvl 3 Time Spent (min) 35
[2021-10-23] MEDS: MoRPHine SULFATE 2 MG/ML CARP IV PRN ×2 (00:12→07:07)
[2021-10-23] MEDS: MELATONIN 3 MG TAB PO PRN (00:12)
[2021-10-23] MEDS ORDERED: LORazepam 1 MG TAB PO STA (01:38)
[2021-10-23] MEDS: guaiFENesin/CODEINE 100MG/10MG 5ML UDC PO SCH ×2 (01:43→07:09)
[2021-10-23] MEDS: HEPARIN SOD 5,000 UNIT/0.5 ML VIAL SQ SCH (05:52)
--- NOTE | 2021-10-23 06:33 | Hospitalist Progress Note ---
Date of Service October 23, 2021 Assessment & Plan (1) Acute respiratory failure with hypoxia: Plan: 76 year old male PMHx recent diagnosis metastatic adenocarcinoma, prostate cancer s/p prostatectomy, HTN, GERD, HLD, PAD, CAD s/p CABG on Plavix who presented to weakness and diarrhea, subsequently found to have worsening AHRF in setting of known malignant pleural effusion and pulmonary mass compressing the pulmonary artery. Unfortunately, throughout his course, he has developed a worsening GIA that has been difficult to treat in the setting of his hypervolemia Comfort Focused Care - 10/23 patient and family electing to move to comfort measures - All medications/orders adjusted accordingly - Pain control with Dilaudid going forward - We will reassess if patient stable into tomorrow to explore possibility of hospice at home vs facility Metastatic Adenocarcinoma - Primary source unclear at this time. Concern for upper GI as source. Patient also has known history of prostate adenocarcinoma s/p TURP - With evidence of numerous pathologic LNs within the lungs and chest, as well as a pulmonary mass that is compressing pulmonary artery - Follows with Dr. Damon at [facility] - per chart review, was planning for palliative chemo/radiation upon discharge - Anticipate holding goals of care discussion today -- prognosis seems quite guarded with worsening GIA, pleural effusion, general deconditioning, and det eriorating QOL - Code status discussed by pulmonary team, changed to DNR/DNI Acute Hypoxic Respiratory Failure -- baseline 3L O2 requirement; mildly improving -Primarily secondary to large left-sided malignant pleural effusion (in setting of recently diagnosed metastatic adenocarcinoma) -Also possible contributory from superimposed pulmonary infection, known pulmonary metastatic disease, and pulmonary edema -Continues to require over-home requirement - about at 5-6L consistently - wean as able Malignant Pleural Effusion -With concurrent AHRF, as described above, in the setting of newly diagnosed metastatic adenocarcinoma and pulmonary mass -Pulmonary previously consulted: PleurX catheter 10/19 - drained approx. 1700cc, on 10/21 drained approx. 250cc -CXR (10/22) - Interval enlargement of effusion, no true mediastinal shift -Likely will always have degree of effusion given trapped lung at LEFT base -Drain q48h - education provided to by nursing yesterday -Pleural effusion will almost always recur despite drainage - no further indicated therapies at this time after speaking with Pulmonary -PleurX in place -- can drain for comfort GIA -- FENa = 0.1% - Baseline creatinine 1.1-1.3 on review of records - Continues to deteriorate with worsening kidney function - Nephrology consultation -- unlikely to benefit from INSPECTOR AND MENDER - Avoid nephrotoxic medications - Renal diet Possible Superimposed PNA -CXR demonstrating large L-sided pleural effusion, possibly with superimposed opacities concerning for infection -Work-up as follows: -Persistent leukocytosis x 2 days at around ~20 with L shift -MRSA nare negative -- vancomycin discontinued -Procal NEGATIVE -Vancomycin discontinued - negative MRSA nares - DC 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 Proceed with NSS, PO intake. - Continue metoprolol at current dosing. - Not previously started on anticoagulation given risk of additional procedures due to lung malignancy - Continue metoprolol for controlling his rate as this could become uncomfortable for patient HTN - Continue metoprolol tartrate, all other meds DC'd Depression -Continue Prozac to avoid SSRI withdrawal symptoms, which could be uncomfortable as well Pancreatic Cyst - Incidentally noted on CT-A/P on 10/18: "...cyst within the head of the pancreas measuring 1.8cm. No other pancreatic mass identified" - Recommend MRI once AHRF is improved -- would be unable to tolerate at this time secondary to orthopnea, pending further goals of care discussion - Comfort measures in place, no further workup Diarrhea -- seems to be chronic, noted in outpatient PCP notes - Etiology unclear. Intermittent. C. diff negative, enteric pathogen panel negative (10/04) - CT-A/P noting no significant inflammatory findings, though the attenuation of the pancreatic parenchyma is noted - Consider symptomatic treatment +/- pancreatic enzymes for ?pancreatic insufficiency p.r.n. Diet: DM2, renal Code Status: DNR/DNI DVT PPX: DC'd as now ORCHID SUPERINTENDENT PT/OT: consulted Case Management: consulted Dispo: MedSurg -- ORCHID SUPERINTENDENT (2) Uncontrolled type 2 diabetes mellitus with neurologic complication, with long-term current use of insulin: (3) Lung cancer: (4) Atrial fibrillation: (5) Prostate CA: Admission and Anticipated Discharge Date Admission Date: October 18, 2021 Supervising Physician Co-Signing Physician Notes I also saw the patient and confirmed núñez portions of the clinical history and exam. I agree with the impression and plan as noted in the resident documentation. at bed side and updated. She voiced understanding. At time of our initial examination, the patient was resting comfortably. Since that time, reports of increased pain and Dilaudid to be changed from as needed to drip. Continue comfort care. Titrate Dilaudid to symptom control. Looking for private room. Subjective Patient seen at bedside. He is belly-breathing and very somnolent. He does awake to voice and is able to converse. He understands he is in the hospital and that his prognosis is poor. Says he is not in pain at the moment. Relays that he just wants to be kept comfortable and to not be in pain. I reiteratr and explain that going to comfort measures would mean retiring other treatment and just keeping him comfortable. He agrees with this. Talked to his on the phone and later in person and she was agreeable with this as well. Review of Systems Review of Systems: As per subjective Physical Exam Physical Exam: General: Somnolent, nasal cannula in place. Cardiac: Normal rate with irregular rhythm. S1/S2 present without m/r/g. Pulmonary: Expiratory wheezes heard predominantly throughout R lung. Significantly diminished lung sounds through L lung. Abdominal: NABS, soft, nontender, nondistended. Extremities: 3+ pitting edema in the lower extremities bilaterally. Results & Data Results & Data ([facility]) Vital Signs (Past 12 Hours) Vital Signs Temp Pulse Pulse Resp BP Pulse Ox 10/23/21 01:05 78 10/23/21 00:42 90 20 90 10/22/21 23:28 36.4 C L 80 22 132/78 90 10/22/21 19:12 36.5 C 96 H 18 131/77 91 Resident Activity Tracking Resident Involvement: Resident Care Provided Care Provided: Adult Hospital Medicine
[2021-10-23 07:46] LABS: BUN Creatinine Ratio 21.9 (10-20); Calcium 9.4 mg/dl (8.5-10.1); Creatinine Clr Calc Pharmacy 21.1 ml/min; Est GFR (African American) 18.2 ml/min; Est GFR (Non-African American) 15.7 ml/min; Potassium 5.3 mmol/L (3.5-5.1)
--- NOTE | 2021-10-23 07:57 | XRay Report ---
XR chest 1V portable CLINICAL HISTORY: pleural effusion, o2 req COMPARISON STUDY: Chest CT October 18, 2021. Chest radiograph October 22, 2021. FINDINGS: There are median sternotomy wires. Near complete opacification of the left hemithorax is ag ain noted with rightward displacement of mediastinal structures. Left basilar pleural catheter is in place. Cardiomegaly is noted. There is a small right pleural effusion. No pneumothorax is present. In terstitial thickening within the right lung is noted. In addition, there are suspected airspace opaci ties within the right lung. IMPRESSION: 1. Persistent near complete opacification of the left hemithorax. Left basilar pleural catheter in pl elly. This suggests a left pleural effusion with left lung atelectasis. 2. Small right pleural effusion. 3. Interstitial thickening within the right lung which favors mild pulmonary edema. 4. Mild right lung airspace opacities. ACT 112: Negative or not required by law. Electronically signed by: Az Cortes M.D. 10/23/2021 7:56 AM
[2021-10-23 08:14] LABS: Basophils # (auto) 0.01 K/uL (0-0.2); Basophils % (auto) 0.1 %; Eosinophils # (auto) 0.02 K/uL (0-0.5); Eosinophils % (auto) 0.1 %; Hematocrit (blood only) 36.5 % (42-52); Hemoglobin 11.5 g/dL (14.0-18.0); Immature Granulocytes # (auto) 0.15 K/uL (0.00-0.02); Immature Granulocytes % (auto) 0.9 %; Lymphocytes # (auto) 0.79 K/uL (1.2-3.4); Lymphocytes % (auto) 4.6 %; Mean Corpuscular Hemoglobin 27.8 pg (25-34); Mean Corpuscular Hgb Conc 31.5 g/dL (32-36); Mean Corpuscular Volume 88.4 fL (80-100); Mean Platelet Volume 8.3 fL (7.4-10.4); Monocytes # (auto) 1.22 K/uL (0.11-0.59); Monocytes % (auto) 7.1 %; Neutrophils # (auto) 14.89 K/uL (1.4-6.5); Neutrophils % (auto) 87.2 %; Platelet Count 590 K/uL (130-400); RDW Coefficient of Variation 15.7 % (11.5-14.5); RDW Standard Deviation 51.1 fL (36.4-46.3); Red Blood Count 4.13 M/uL (4.7-6.1); White Blood Count 17.08 K/uL (4.8-10.8)
[2021-10-23 08:35] LABS: Partial Thromboplastin Ratio 1.2; Partial Thromboplastin Time 32.2 Seconds (21.0-31.0)
[2021-10-23] MEDS ORDERED: LORazepam 0.5 MG TAB PO PRN (08:38)
[2021-10-23] MEDS ORDERED: ONDANSETRON INJ 2 MG/ML 2 ML VIAL IV PRN (08:38)
[2021-10-23] MEDS ORDERED: LORazepam 2 MG/4 ML VIAL IV PRN (08:38)
[2021-10-23] MEDS ORDERED: GLYCOPYRROLATE 0.2 MG/ML VIAL IV PRN (08:38)
[2021-10-23] MEDS ORDERED: LORazepam 0.5 MG/1 ML VIAL IV PRN (08:38)
[2021-10-23] MEDS ORDERED: HYDROmorphone INJ 0.5 MG/0.5 ML SYR IV PRN (08:38)
[2021-10-23] MEDS ORDERED: ONDANSETRON 4 MG OD TAB SL PRN (08:38)
[2021-10-23] MEDS: INSULIN ASPART PER UNIT SC SCH (08:40)
[2021-10-23] MEDS: FAMOTIDINE 10 MG TABLET PO SCH (08:59)
[2021-10-23] MEDS: METOPROLOL TARTRATE 25 MG TAB PO SCH ×2 (08:59→20:33)
[2021-10-23] MEDS: FLUoxetine HCL 20 MG CAP PO SCH (08:59)
[2021-10-23] MEDS ORDERED: CEFEPIME 2,000 MG in SYRINGE 0 ML IV SCH (09:00)
[2021-10-23] MEDS ORDERED: ALBUMIN 25% 100 mL 25 GM/100 ML VIAL IV ONE (09:00)
--- NOTE | 2021-10-23 10:32 | Nephrology Progress Note ---
Date of Service October 23, 2021 Assessment & Plan (1) GIA (acute kidney injury): Plan: Clinically consistent with prerenal azotemia and ATN. Prognosis is very poor. Condition was discussed with patient and his this morning. Plan to transition to EMERY GRINDER. (2) Peripheral edema: Plan: Diuretics to encourage urine output PRN for comfort. (3) Hypotension: (4) Pleural effusion: Plan: Nephrology will sign-off. Please call with questions or concerns. Admission and Anticipated Discharge Date Admission Date: October 18, 2021 Subjective Mr. Sky was seen and evaluated with his at the bedside. They confirmed plan to transition to EMERY GRINDER. Overall, feeling well s/p pain medication. Review of Systems Review of Systems: All systems reviewed & are unremarkable except as noted in HPI & below Physical Exam Constitutional: well developed, + obese and + edematous Eyes: + anicteric sclerae; no conjunctival abnormality ENMT: Mouth: no oral mucosal abnormality and oral mucous membranes not dry Neck: normal visual inspection and trachea midline Respiratory: normal respiratory effort Auscultation: + diminished lung sounds Cardiovascular: Rate/Rhythm: + tachycardic Heart Sounds: normal S1 and normal S2 Extremities: + edema Gastrointestinal (Abdomen): Inspection/Auscultation: + abdomen distended Percussion/Palpation: abdomen soft; abdomen nontender Musculoskeletal: Extremities: no cyanosis and no clubbing Skin: no rashes and no jaundice Neurologic: Motor/Sensory: no tremor and no asterixis Psychiatric: Orientation: alert and oriented x 3 Results & Data ([facility]) Vital Signs (Past 12 Hours) Vital Signs Temp Pulse Pulse Pulse Resp BP BP 10/23/21 07:27 94 H 10/23/21 07:22 36.3 C L 106 H 22 127/77 10/23/21 01:05 78 10/23/21 00:42 90 20 10/22/21 23:28 36.4 C L 80 22 132/78 Pulse Ox 10/23/21 07:27 10/23/21 07:22 92 10/23/21 01:05 10/23/21 00:42 90 10/22/21 23:28 90 Laboratory Results Laboratory Results - last 24 hr 10/22/21 10/22/21 10/22/21 11:39 16:37 20:08 WBC RBC Hgb Hct MCV MCH MCHC RDW Std Deviation RDW Coeff of Shlomo Plt Count MPV Immature Gran % (Auto) Neut % (Auto) Lymph % (Auto) [place] % (Auto) Eos % (Auto) Baso % (Auto) Neut # (Auto) Lymph # (Auto) [place] # (Auto) Eos # (Auto) Baso # (Auto) Immature Gran # (Auto) Absolute Nucleated RBC Nucleated RBC % (auto) Neutrophils % (Manual) Band Neutrophils % Lymphocytes % (Manual) Prolymphocyte % Reactive Lymphs % (Man) Monocytes % (Manual) Eosinophils % (Manual) Basophils % (Manual) Metamyelocytes % (Man) Myelocytes % (Man) Promyelocytes % (Man) Blast Cells % (Manual) Plasma Cell % (Manual) Other Cells % Nucleated RBC % Neutrophils # (Manual) Band Neutrophils # Total Absolute Neuts Lymphocytes # (Manual) Prolymphocyte # Reactive Lymphs # Total Abs Lymphocytes Monocytes # (Manual) Eosinophils # (Manual) Basophils # (Manual) Metamyelocytes # (Man) Myelocytes # (Manual) Promyelocytes # (Man) Blast Cells # (Man) Plasma Cell # (Manual) Other Cells # Nucleated RBCs # (Man) Hypersegmented Neuts Hyposegmented Neuts Hypogranular Neuts Large Granular Lymphs # Lrg Granular Lymphs Hairy Cells Smudge Cells Toxic Granulation Toxic Vacuolation Dohle Bodies Lele Rods Platelet Estimate Hypogranular Platelets Clumped Platelets Giant Platelets Platelet Satelliting RBC Morphology Polychromasia Hypochromasia Poikilocytosis Basophilic Stippling Anisocytosis Microcytosis Macrocytosis Spherocytes Pappenheimer Bodies Sickle Cells Target Cells Tear Drop Cells Ovalocytes Stomatocytes [place] Bodies Echinocytes Acanthocytes (Spur) Rouleaux RBC Agglutinates Schistocytes RBC Morph Comment Sezary Cell APTT PTT Ratio Sodium Potassium Chloride Carbon Dioxide Anion Gap BUN Creatinine Est Cr Clr Drug Dosing Est GFR ( Amer) Est GFR (Non-Af Amer) BUN/Creatinine Ratio Glucose POC Glucose 191 H 166 H 175 H Calcium Digoxin 10/23/21 10/23/21 10/23/21 06:09 06:09 06:09 WBC Cancelled RBC Cancelled Hgb Cancelled Hct Cancelled MCV Cancelled MCH Cancelled MCHC Cancelled RDW Std Deviation Cancelled RDW Coeff of Shlomo Cancelled Plt Count Cancelled MPV Cancelled Immature Gran % (Auto) Cancelled Neut % (Auto) Cancelled Lymph % (Auto) Cancelled [place] % (Auto) Cancelled Eos % (Auto) Cancelled Baso % (Auto) Cancelled Neut # (Auto) Cancelled Lymph # (Auto) Cancelled [place] # (Auto) Cancelled Eos # (Auto) Cancelled Baso # (Auto) Cancelled Immature Gran # (Auto) Cancelled Absolute Nucleated RBC Cancelled Nucleated RBC % (auto) Cancelled Neutrophils % (Manual) Cancelled Band Neutrophils % Cancelled Lymphocytes % (Manual) Cancelled Prolymphocyte % Cancelled Reactive Lymphs % (Man) Cancelled Monocytes % (Manual) Cancelled Eosinophils % (Manual) Cancelled Basophils % (Manual) Cancelled Metamyelocytes % (Man) Cancelled Myelocytes % (Man) Cancelled Promyelocytes % (Man) Cancelled Blast Cells % (Manual) Cancelled Plasma Cell % (Manual) Cancelled Other Cells % Cancelled Nucleated RBC % Cancelled Neutrophils # (Manual) Cancelled Band Neutrophils # Cancelled Total Absolute Neuts Cancelled Lymphocytes # (Manual) Cancelled Prolymphocyte # Cancelled Reactive Lymphs # Cancelled Total Abs Lymphocytes Cancelled Monocytes # (Manual) Cancelled Eosinophils # (Manual) Cancelled Basophils # (Manual) Cancelled Metamyelocytes # (Man) Cancelled Myelocytes # (Manual) Cancelled Promyelocytes # (Man) Cancelled Blast Cells # (Man) Cancelled Plasma Cell # (Manual) Cancelled Other Cells # Cancelled Nucleated RBCs # (Man) Cancelled Hypersegmented Neuts Cancelled Hyposegmented Neuts Cancelled Hypogranular Neuts Cancelled Large Granular Lymphs Cancelled # Lrg Granular Lymphs Cancelled Hairy Cells Cancelled Smudge Cells Cancelled Toxic Granulation Cancelled Toxic Vacuolation Cancelled Dohle Bodies Cancelled Lele Rods Cancelled Platelet Estimate Cancelled Hypogranular Platelets Cancelled Clumped Platelets Cancelled Giant Platelets Cancelled Platelet Satelliting Cancelled RBC Morphology Cancelled Polychromasia Cancelled Hypochromasia Cancelled Poikilocytosis Cancelled Basophilic Stippling Cancelled Anisocytosis Cancelled Microcytosis Cancelled Macrocytosis Cancelled Spherocytes Cancelled Pappenheimer Bodies Cancelled Sickle Cells Cancelled Target Cells Cancelled Tear Drop Cells Cancelled Ovalocytes Cancelled Stomatocytes Cancelled [place] Bodies Cancelled Echinocytes Cancelled Acanthocytes (Spur) Cancelled Rouleaux Cancelled RBC Agglutinates Cancelled Schistocytes Cancelled RBC Morph Comment Cancelled Sezary Cell Cancelled APTT Cancelled PTT Ratio Cancelled Sodium 127 L Potassium 5.3 H Chloride 94 L Carbon Dioxide 20 L Anion Gap 13.0 H BUN 79 H Creatinine 3.60 H Est Cr Clr Drug Dosing 21.1 Est GFR ( Amer) 18.2 Est GFR (Non-Af Amer) 15.7 BUN/Creatinine Ratio 21.9 H Glucose 101 H POC Glucose Calcium 9.4 Digoxin 10/23/21 10/23/21 10/23/21 06:09 08:03 08:03 WBC 17.08 H RBC 4.13 L Hgb 11.5 L Hct 36.5 L MCV 88.4 MCH 27.8 MCHC 31.5 L RDW Std Deviation 51.1 H RDW Coeff of Shlomo 15.7 H Plt Count 590 H MPV 8.3 Immature Gran % (Auto) 0.9 Neut % (Auto) 87.2 Lymph % (Auto) 4.6 [place] % (Auto) 7.1 Eos % (Auto) 0.1 Baso % (Auto) 0.1 Neut # (Auto) 14.89 H Lymph # (Auto) 0.79 L [place] # (Auto) 1.22 H Eos # (Auto) 0.02 Baso # (Auto) 0.01 Immature Gran # (Auto) 0.15 H Absolute Nucleated RBC Nucleated RBC % (auto) Neutrophils % (Manual) Band Neutrophils % Lymphocytes % (Manual) Prolymphocyte % Reactive Lymphs % (Man) Monocytes % (Manual) Eosinophils % (Manual) Basophils % (Manual) Metamyelocytes % (Man) Myelocytes % (Man) Promyelocytes % (Man) Blast Cells % (Manual) Plasma Cell % (Manual) Other Cells % Nucleated RBC % Neutrophils # (Manual) Band Neutrophils # Total Absolute Neuts Lymphocytes # (Manual) Prolymphocyte # Reactive Lymphs # Total Abs Lymphocytes Monocytes # (Manual) Eosinophils # (Manual) Basophils # (Manual) Metamyelocytes # (Man) Myelocytes # (Manual) Promyelocytes # (Man) Blast Cells # (Man) Plasma Cell # (Manual) Other Cells # Nucleated RBCs # (Man) Hypersegmented Neuts Hyposegmented Neuts Hypogranular Neuts Large Granular Lymphs # Lrg Granular Lymphs Hairy Cells Smudge Cells Toxic Granulation Toxic Vacuolation Dohle Bodies Lele Rods Platelet Estimate Hypogranular Platelets Clumped Platelets Giant Platelets Platelet Satelliting RBC Morphology Polychromasia Hypochromasia Poikilocytosis Basophilic Stippling Anisocytosis Microcytosis Macrocytosis Spherocytes Pappenheimer Bodies Sickle Cells Target Cells Tear Drop Cells Ovalocytes Stomatocytes [place] Bodies Echinocytes Acanthocytes (Spur) Rouleaux RBC Agglutinates Schistocytes RBC Morph Comment Sezary Cell APTT 32.2 H PTT Ratio 1.2 Sodium Potassium Chloride Carbon Dioxide Anion Gap BUN Creatinine Est Cr Clr Drug Dosing Est GFR ( Amer) Est GFR (Non-Af Amer) BUN/Creatinine Ratio Glucose POC Glucose Calcium Digoxin 2.1 H 10/23/21 08:26 WBC RBC Hgb Hct MCV MCH MCHC RDW Std Deviation RDW Coeff of Shlomo Plt Count MPV Immature Gran % (Auto) Neut % (Auto) Lymph % (Auto) [place] % (Auto) Eos % (Auto) Baso % (Auto) Neut # (Auto) Lymph # (Auto) [place] # (Auto) Eos # (Auto) Baso # (Auto) Immature Gran # (Auto) Absolute Nucleated RBC Nucleated RBC % (auto) Neutrophils % (Manual) Band Neutrophils % Lymphocytes % (Manual) Prolymphocyte % Reactive Lymphs % (Man) Monocytes % (Manual) Eosinophils % (Manual) Basophils % (Manual) Metamyelocytes % (Man) Myelocytes % (Man) Promyelocytes % (Man) Blast Cells % (Manual) Plasma Cell % (Manual) Other Cells % Nucleated RBC % Neutrophils # (Manual) Band Neutrophils # Total Absolute Neuts Lymphocytes # (Manual) Prolymphocyte # Reactive Lymphs # Total Abs Lymphocytes Monocytes # (Manual) Eosinophils # (Manual) Basophils # (Manual) Metamyelocytes # (Man) Myelocytes # (Manual) Promyelocytes # (Man) Blast Cells # (Man) Plasma Cell # (Manual) Other Cells # Nucleated RBCs # (Man) Hypersegmented Neuts Hyposegmented Neuts Hypogranular Neuts Large Granular Lymphs # Lrg Granular Lymphs Hairy Cells Smudge Cells Toxic Granulation Toxic Vacuolation Dohle Bodies Lele Rods Platelet Estimate Hypogranular Platelets Clumped Platelets Giant Platelets Platelet Satelliting RBC Morphology Polychromasia Hypochromasia Poikilocytosis Basophilic Stippling Anisocytosis Microcytosis Macrocytosis Spherocytes Pappenheimer Bodies Sickle Cells Target Cells Tear Drop Cells Ovalocytes Stomatocytes [place] Bodies Echinocytes Acanthocytes (Spur) Rouleaux RBC Agglutinates Schistocytes RBC Morph Comment Sezary Cell APTT PTT Ratio Sodium Potassium Chloride Carbon Dioxide Anion Gap BUN Creatinine Est Cr Clr Drug Dosing Est GFR ( Amer) Est GFR (Non-Af Amer) BUN/Creatinine Ratio Glucose POC Glucose 125 H Calcium Digoxin PG Care Time/CCT Total # of Minutes Spent Total Time Spent with Patient: Total time spent is greater than 50% in coordination of care (as documented) at patient's floor/unit and/or counseling patient: Coding Level of Care Code 27227 Subseq Hosp Care Lvl 3 Diagnoses GIA (acute kidney injury) N17.9 Peripheral edema R60.9 Hypotension I95.9 Pleural effusion J90
[2021-10-23] MEDS ORDERED: STAT IV Infusion **Titration per Protocol STA (12:19)
[2021-10-23] MEDS ORDERED: HYDROmorphone/NSS 100 MG/100 ML BAG IV SCH (12:30)
[2021-10-23] MEDS: traZODone HCL 100 MG TAB PO SCH (20:33)
--- NOTE | 2021-10-24 06:29 | Death Pronouncement Note ---
Date of Service October 24, 2021 Pronouncement Note Admission Date Admission Date: October 18, 2021 Date and Time of Date of : 10/24/21 Time of : 00:05 Contributing Factors (1) Acute respiratory failure with hypoxia: (2) Uncontrolled type 2 diabetes mellitus with neurologic complication, with long-term current use of insulin: (3) Lung cancer: (4) Atrial fibrillation: (5) Prostate CA: Hospital Course Hospital Course: see hospitalist discharge summary for additional information Additional Data Family: contacted Attending/PCP notified?: Yes Attending physician: Davon Santos, DO Was code activated?: No Autopsy requested?: No
--- NOTE | 2021-10-24 06:45 | Discharge Summary ---
Date of Service October 24, 2021 Admission HPI Per Admitting Provider 76 year old male with past medical history of recent diagnosis of metastatic adenocarcinoma 09/28/21, prostate cancer s/p prostatectomy, HTN, GERD, HLD, PAD, CAD s/p CABG on Plavix who came in to the ED for hemoptysis for the past 12 hours. Patient was previously admitted for pleural effusion thought to be due to metastatic disease. At the time cytology for the pleural effusion revealed malignant cells consistent with metastatic adenocarcinoma. Patient had seen Dr. Damon to go over the results and she had told him this was possibly related to upper GI or stomach metastasis. Prior to that admission patient had developed increased dyspnea on exertion and swelling in his bilateral lower extremities. Symptoms to the last admission are similar except for the addition of hemoptysis the patient first noticed at 11:00 today. He said he coughed up bloody sputum the size of his thumb at the first occurrence. He had a few more occurrences of bloody sputum that were smaller in size after that. He called his PCP to get an opinion on what to do and his PCP told him to come into the ER for further analysis and treatment. Patient has not had any fevers, chills, nausea, vomiting, chest pain. He does endorse a cough with sputum production that is usually clear to yellow in color, decreased inspiratory volume, increased fatigue, and generalized weakness. His weakness has been so bad he recently had a fall for which when he tried to stand up he fell down from weak knees (no head injury or syncope was experienced). He does have a past history of smoking for ~20 years, 2 packs per day (40 pack year history), and endorses he quit 23 years ago. He denies any history of diagnosed COPD or emphysema but does require home oxygen. Principal Diagnosis Metastatic adenocarcinoma, acute hypoxic respiratory failure, acute renal failure Discharge Exam Physical exam at time of per overnight physician Discharge Data Allergies Allergy/AdvReac Type Severity Reaction Status Date / Time Sulfa (Sulfonamide Allergy Mild Rash Verified 10/18/21 16:25 Antibiotics) sulfamethoxazole Allergy Mild Rash Verified 10/18/21 16:25 [From Bactrim] trimethoprim [From Bactrim] Allergy Mild Rash Verified 10/18/21 16:25 codeine AdvReac Mild Nausea/"wild Verified 10/18/21 16:25 dreams" Consultations 12/22/21 19:25 ED Decision to Admit Stat 10/19/21 04:26 Consult Pulmonology Routine 10/19/21 06:56 Consult Oncology Routine 10/19/21 08:05 Consult Palliative Care Routine 10/22/21 10:30 Consult Nephrology Routine 10/23/21 08:39 Consult Palliative Care Routine Ordered Studies 10/18/21 16:30 CT angio chest PE protocol Stat 10/18/21 21:42 CT abd pelvis IV con only Urgent 10/19/21 14:55 US point of care ultrasound Routine Hospital Course (1) Acute respiratory failure with hypoxia: 76 year old male PMHx recent diagnosis metastatic adenocarcinoma, prostate cancer s/p prostatectomy, HTN, GERD, HLD, PAD, CAD s/p CABG on Plavix who presented to weakness and diarrhea, subsequently found to have worsening AHRF in setting of known malignant pleural effusion and pulmonary mass compressing the pulmonary artery. Unfortunately, throughout his course, he has developed a worsening GIA that has been difficult to treat in the setting of his hypervolemia Comfort Focused Care - 10/23 patient and family electing to move to comfort measures - All medications/orders adjusted accordingly - Patient 10/24/2021 00:05, about 12 hours after transitioning to comfort measures with adequate pain control - Pronounced by overnight resident -- family made aware by nursing Metastatic Adenocarcinoma - Primary source unclear at this time. Concern for upper GI as source. Patient also has known history of prostate adenocarcinoma s/p TURP - With evidence of numerous pathologic LNs within the lungs and chest, as well as a pulmonary mass that is compressing pulmonary artery - Follows with Dr. Damon at [facility] [place] - per chart review, was planning for palliative chemo/radiation upon discharge - Anticipate holding goals of care discussion today -- prognosis seems quite guarded with worsening GIA, pleural effusion, general deconditioning, and deteriorating QOL - Code status discussed by pulmonary team, changed to DNR/DNI Acute Hypoxic Respiratory Failure -- baseline 3L O2 requirement; mildly improving -Primarily secondary to large left-sided malignant pleural effusion (in setting of recently diagnosed metastatic adenocarcinoma) -Also possible contributory from superimposed pulmonary infection, known pulmonary metastatic disease, and pulmonary edema -Continues to require over-home requirement - about at 5-6L consistently - wean as able Malignant Pleural Effusion -With concurrent AHRF, as described above, in the setting of newly diagnosed metastatic adenocarcinoma and pulmonary mass -Pulmonary previously consulted: PleurX catheter 10/19 - drained approx. 1700cc, on 10/21 drained approx. 250cc -CXR (10/22) - Interval enlargement of effusion, no true mediastinal shift -Likely will always have degree of effusion given trapped lung at LEFT base -Drain q48h - education provided to by nursing yesterday -Pleural effusion will almost always recur despite drainage - no further indicated therapies at this time after speaking with Pulmonary -PleurX in place -- can drain for comfort GIA -- FENa = 0.1% - Baseline creatinine 1.1-1.3 on review of records - Continues to deteriorate with worsening kidney function - Nephrology consultation -- unlikely to benefit from PROGRAM ENGINEER - Avoid nephrotoxic medications - Renal diet Possible Superimposed PNA -CXR demonstrating large L-sided pleural effusion, possibly with superimposed opacities concerning for infection -Work-up as follows: -Persistent leukocytosis x 2 days at around ~20 with L shift -MRSA nare negative -- vancomycin discontinued -Procal NEGATIVE -Vancomycin discontinued - negative MRSA nares - DC cefepime due to DEVELOPMENT ENG Atrial Fibrillation -- RVR now resolved - New-onset during last admission earlier this month admission ECG c/w AFib - Rates elevated overnight in setting of worsening GIA, suspect secondary to intravascular depletion. Proceed with NSS, PO intake. - Continue metoprolol at current dosing. - Not previously started on anticoagulation given risk of additional procedures due to lung malignancy - Continue metoprolol for controlling his rate as this could become uncomfortable for patient HTN - Continue metoprolol tartrate, all other meds DC'd Depression -Continue Prozac to avoid SSRI withdrawal symptoms, which could be uncomfortable as well Pancreatic Cyst - Incidentally noted on CT-A/P on 10/18: "...cyst within the head of the pancreas measuring 1.8cm. No other pancreatic mass identified" - Recommend MRI once AHRF is improved -- would be unable to tolerate at this time secondary to orthopnea, pending further goals of care discussion - Comfort measures in place, no further workup Diarrhea -- seems to be chronic, noted in outpatient PCP notes - Etiology unclear. Intermittent. C. diff negative, enteric pathogen panel negative (10/04) - CT-A/P noting no significant inflammatory findings, though the attenuation of the pancreatic parenchyma is noted - Consider symptomatic treatment +/- pancreatic enzymes for ?pancreatic insufficiency p.r.n. (2) Uncontrolled type 2 diabetes mellitus with neurologic complication, with long-term current use of insulin: (3) Lung cancer: (4) Atrial fibrillation: (5) Prostate CA: Total Time Total Time Spent Total Time Spent (In Minutes): see attending attestation Discharge Plan Discharge Items Patient Disposition: Addtl Attending Provider Instructions: Patient 10/24/21 Other Date/Time: 10/24/21 00:35 Supervising Physician Co-Signing Physician Notes I reviewed the discharge summary and agree with resident documentation. I was not present at the time of the patient's during the overnight hours. Resident Activity Tracking Resident Involvement: Resident Care Provided Care Provided: Adult Hospital Medicine
== END 2021-10-24 01:19 | disposition expired | DRG 180 ==
LOC: ED 16:11 → EDINP 22:13 → SUATTDRO 22:13 → EDINP 10-19 00:30 → 2N 10-19 09:02 → 3E 10-23 19:20